=== PATIENT | female | born 1945 | race Caucasian/White ===

== ENCOUNTER → 2017-06-09 | Outpatient (CLI) | payer MEDICARE, MEDICAID | END | disposition home or self-care (01) | LOC: ECHO 09:01 | DX: Z01.810 Encounter for preprocedural cardiovascular examination (principal); I35.1 Nonrheumatic aortic (valve) insufficiency | CPT/HCPCS: 93306 ==

== ENCOUNTER 2018-01-10 13:19 | Emergency (ER) | payer MEDICARE, MEDICAID ==
[~2018-01-10] VITALS: Ht 160 cm; Wt 83.0 kg
[~2018-01-10 13:19] MED LIST: ALBU2.5V14 NEB; AMLO5TAB7 PO; ASPI-482 PO; CHOL10003 PO; CLON1TAB23 PO; CLON2TAB9 PO; DULO30CA2 PO; DULO60CA6 PO; FERR325T14 PO; HYDR-971 PO; HYDR200T5 PO; IPRA4AER IH; LEVO25TA4 PO; MELO7.5T29 PO; METO-269 PO; MULT-658 PO; OMEG1CAP27 PO; PANT40TA5 PO; TRAZ-86 PO
[2018-01-10] MEDS ORDERED: IV NORMAL SALINE 1000ML BAG 1,000 ML IV ONE (14:00)
[2018-01-10] MEDS ORDERED: IOHEXOL 240 MG/ML 50ML VIAL. PO ONE (14:15)
[2018-01-10] MEDS ORDERED: CONTRAST GIVEN. MC PRN (14:15)
[2018-01-10] MEDS ORDERED: IOHEXOL 300 MG/ML 100ML VIAL. IV ONE (14:15)
[2018-01-10 14:54] LABS: BASO # 0.1 x10^3/uL (0.0-0.2); BASO % 1 % (0-3); EOS # 0.1 x10^3/uL (0.0-0.7); EOS % 2 % (0-3); HEMATOCRIT 43.1 % (36.0-47.0); HEMOGLOBIN 14.6 g/dL (12.0-15.5); LYMPH # 2.3 x10^3/uL (1.0-4.8); LYMPH % 26 % (24-48); MEAN CORPUSCULAR HEMOGLOBIN 29 pg (25-35); MEAN CORPUSCULAR HGB CONC 34 g/dL (31-37); MEAN CORPUSCULAR VOLUME 86 fL (79-100); MONO % 11 % (0-9); NEUT # 5.4 x10^3uL (1.8-7.7); NEUT % 60 % (31-73); PLATELET COUNT 228 x10^3/uL (140-400); RED BLOOD COUNT 5.02 x10^6/uL (3.50-5.40); RED CELL DISTRIBUTION WIDTH 14.4 % (11.5-14.5)
[2018-01-10 14:59] LABS: CALCIUM 9.4 mg/dL (8.5-10.1); CREATININE 0.6 mg/dL (0.6-1.0); GFR 98.3; POTASSIUM 3.8 mmol/L (3.5-5.1)
[2018-01-10 15:05] LABS: ALBUMIN 3.5 g/dL (3.4-5.0); TOTAL BILIRUBIN 0.3 mg/dL (0.2-1.0); TOTAL PROTEIN 6.9 g/dL (6.4-8.2)
[2018-01-10 15:21] LABS: BILIRUBIN,URINE NEGATIVE (NEG); CLARITY,URINE CLEAR; COLOR,URINE YELLOW; NITRITE,URINE NEGATIVE (NEG); PROTEIN,URINE NEGATIVE (NEG-TRACE); UROBILINOGEN,URINE 0.2 mg/dL (0.2 mg/dL)
[2018-01-10 15:31] LABS: BACTERIA,URINE MODERATE /HPF (0-FEW); RBC,URINE RARE /HPF (0-2); SQUAMOUS EPITHELIAL CELL,UR FEW /LPF
--- NOTE | 2018-01-10 15:39 | RAD ---
Examination: CT of the abdomen pelvis with IV and oral contrast HISTORY: History of left lower quadrant abdominal pain, diarrhea COMPARISON: 02/07/2014 TECHNIQUE: Axial CT images of the abdomen pelvis were performed with oral and IV contrast. Coronal and sagittal reformats are performed Exposure: One or more of the following individualized dose reduction techniques were utilized for this examination: 1. Automated exposure control 2. Adjustment of the mA and/or kV according to patient size 3. Use of iterative reconstruction technique FINDINGS: The visualized bibasilar lungs are clear. No evidence of free air identified in the abdomen. The visualized liver grossly appears unremarkable. Prominent appearing intrahepatic bile ducts identified. The common bile duct measures 2.9 cm in diameter is similar to prior exam probably postcholecystectomy changes with the distention. The visualized pancreas grossly appears unremarkable. The visualized spleen, adrenals grossly appears unremarkable. The stomach is mildly distended. Small hiatal hernia is identified. The small bowel is nondilated. Feces and gas noted in the colon. Multiple sigmoid colon diverticulosis identified. Mild thickening of the distal descending colon and sigmoid colon wall. Urinary bladder is minimally distended. The bilateral kidneys enhance symmetrically. Small cystic structure identified in the right kidney measuring 7 mm. Moderate degenerative changes lumbar spine. IMPRESSION: 1. There is mild thickening of the wall of the distal descending colon and sigmoid colon likely mild colitis. Sigmoid colon diverticulosis. 2. Prominent appearing common bile duct and intrahepatic bile duct with the common bile duct measuring 2.9 cm grossly similar to prior exam probably postcholecystectomy changes or distal common bile duct obstruction is not completely excluded. Correlate with liver function tests. 3. Tiny 7 mm cystic structure identified in the right kidney is difficult to characterize. Electronically signed by: Talon Bear MD (01/10/2018 3:35 PM) [id number]
[2018-01-10] MEDS ORDERED: CIPR500T94 PO (15:47)
[2018-01-10] MEDS ORDERED: METR500T PO (15:47)
--- NOTE | 2018-01-10 15:49 | PHYS DOC ---
Past Medical History Past Medical History: Anxiety, COPD, Hypertension, Other Additional Past Medical Histor: thyroid issue, SLEEP APNEA Past Surgical History: Appendectomy, Cholecystectomy, Knee Replacement Additional Past Surgical Histo: left rotator cuff,hernia,OVARIAN CYSTS REMOVED Alcohol Use: Occasionally Drug Use: None Adult General Chief Complaint Chief Complaint: DIARRHEA HPI HPI Patient is a 72 year old female who presents with diarrhea x 4 days. The patient states that she was evaluated at [facility] 2 days ago and discharged home with no medications. They stated that she did have a UTI but they did not medicate her. The patient does have a history of diverticulosis. She has been having some lower quadrant pain. She denies nausea or vomiting. Review of Systems Review of Systems Constitutional: Denies fever or chills [] Respiratory: Denies cough or shortness of breath [] Cardiovascular: No additional information not addressed in HPI [] GI: See history of present illness : Denies dysuria or hematuria [] Musculoskeletal: Denies back pain or joint pain [] Integument: Denies rash or skin lesions [] Neurologic: Denies headache, focal weakness or sensory changes [] Endocrine: Denies polyuria or polydipsia [] All other systems were reviewed and found to be within normal limits, except as documented in this note. Current Medications Current Medications Current Medications Medications (Trade) Dose Ordered Sig/James Start Time Stop Time Status Last Admin Dose Admin Info (CONTRAST GIVEN -- Rx MONITORING) 1 each PRN DAILY PRN 01/10/18 14:15 01/10/18 16:38 DC Iohexol (Omnipaque 240 Mg/ml) 30 ml 1X ONCE 01/10/18 14:15 01/10/18 14:16 DC 01/10/18 14:15 30 ML Iohexol (Omnipaque 300 Mg/ml) 75 ml 1X ONCE 01/10/18 14:15 01/10/18 14:16 DC 01/10/18 14:15 75 ML Sodium Chloride 1,000 ml @ 1,000 mls/hr 1X ONCE 01/10/18 14:00 01/10/18 14:59 DC 01/10/18 15:05 1,000 MLS/HR Allergies Allergies Allergies Coded Allergies Type Severity Reaction Last Updated Verified Sulfa (Sulfonamide Antibiotics) Allergy Intermediate 03/10/15 Yes hydrochlorothiazide Allergy Intermediate 09/08/17 Yes Physical Exam Physical Exam Constitutional: Well developed, well nourished, no acute distress, non-toxic appearance. [] Cardiovascular:Heart rate regular rhythm, no murmur [] Lungs & Thorax: Bilateral breath sounds clear to auscultation [] Abdomen: Bowel sounds normal, soft, mild left lower quadrant tenderness, no masses, no pulsatile masses. [] Skin: Warm, dry, no erythema, no rash. [] Back: No tenderness, no CVA tenderness. [] Extremities: No tenderness, no cyanosis, no clubbing, ROM intact, no edema. [] Neurologic: Alert and oriented X 3, normal motor function, normal sensory function, no focal deficits noted. [] Psychologic: Affect normal, judgement normal, mood normal. [] Current Patient Data Vital Signs Vital Signs Date Time Temp Pulse Resp B/P (MAP) Pulse Ox O2 Delivery O2 Flow Rate FiO2 01/10/18 16:08 76 20 158/81 (106) 95 Room Air 01/10/18 13:19 98.6 98.6 Lab Values Laboratory Tests Test 01/10/18 14:30 01/10/18 15:13 White Blood Count 9.0 x10^3/uL (4.0-11.0) Red Blood Count 5.02 x10^6/uL (3.50-5.40) Hemoglobin 14.6 g/dL (12.0-15.5) Hematocrit 43.1 % (36.0-47.0) Mean Corpuscular Volume 86 fL (79-100) Mean Corpuscular Hemoglobin 29 pg (25-35) Mean Corpuscular Hemoglobin Concent 34 g/dL (31-37) Red Cell Distribution Width 14.4 % (11.5-14.5) Platelet Count 228 x10^3/uL (140-400) Neutrophils (%) (Auto) 60 % (31-73) Lymphocytes (%) (Auto) 26 % (24-48) Monocytes (%) (Auto) 11 % (0-9) H Eosinophils (%) (Auto) 2 % (0-3) Basophils (%) (Auto) 1 % (0-3) Neutrophils # (Auto) 5.4 x10^3uL (1.8-7.7) Lymphocytes # (Auto) 2.3 x10^3/uL (1.0-4.8) Monocytes # (Auto) 1.0 x10^3/uL (0.0-1.1) Eosinophils # (Auto) 0.1 x10^3/uL (0.0-0.7) Basophils # (Auto) 0.1 x10^3/uL (0.0-0.2) Sodium Level 140 mmol/L (136-145) Potassium Level 3.8 mmol/L (3.5-5.1) Chloride Level 103 mmol/L (98-107) Carbon Dioxide Level 28 mmol/L (21-32) Anion Gap 9 (6-14) Blood Urea Nitrogen 9 mg/dL (7-20) Creatinine 0.6 mg/dL (0.6-1.0) Estimated GFR (Cockcroft-Gault) 98.3 BUN/Creatinine Ratio 15 (6-20) Glucose Level 82 mg/dL (70-99) Calcium Level 9.4 mg/dL (8.5-10.1) Total Bilirubin 0.3 mg/dL (0.2-1.0) Aspartate Amino Transferase (AST) 15 U/L (15-37) Alanine Aminotransferase (ALT) 15 U/L (14-59) Alkaline Phosphatase 110 U/L (46-116) Total Protein 6.9 g/dL (6.4-8.2) Albumin 3.5 g/dL (3.4-5.0) Albumin/Globulin Ratio 1.0 (1.0-1.7) Urine Collection Type Void Urine Color Yellow Urine Clarity Clear Urine pH 6.0 Urine Specific [place] 1.010 Urine Protein Negative mg/dL (NEG-TRACE) Urine Glucose (UA) Negative mg/dL (NEG) Urine Ketones (Stick) Negative mg/dL (NEG) Urine Blood Small (NEG) Urine Nitrite Negative (NEG) Urine Bilirubin Negative (NEG) Urine Urobilinogen Dipstick 0.2 mg/dL (0.2 mg/dL) Urine Leukocyte Esterase Moderate (NEG) Urine RBC Rare /HPF (0-2) Urine WBC 5-10 /HPF (0-4) Urine Squamous Epithelial Cells Few /LPF Urine Bacteria Moderate /HPF (0-FEW) Laboratory Tests 01/10/18 14:30 Laboratory Tests 01/10/18 14:30 EKG EKG [] Radiology/Procedures Radiology/Procedures [] PATIENT: SHYANNE RODARTE ACCOUNT: [id number] : 1945 LOCATION: ER AGE: 72 SEX: F EXAM STATUS: REG ER ORD. PHYSICIAN: ALIZA CARDENAS APRN REASON: LLQ pain, diarrhea x 5 days PROCEDURE: CT ABD PELV W/ORAL&IV CONTRAST Examination: CT of the abdomen pelvis with IV and oral contrast HISTORY: History of left lower quadrant abdominal pain, diarrhea COMPARISON: 02/07/2014 TECHNIQUE: Axial CT images of the abdomen pelvis were performed with oral and IV contrast. Coronal and sagittal reformats are performed Exposure: One or more of the following individualized dose reduction techniques were utilized for this examination: 1. Automated exposure control 2. Adjustment of the mA and/or kV according to patient size 3. Use of iterative reconstruction technique FINDINGS: The visualized bibasilar lungs are clear. No evidence of free air identified in the abdomen. The visualized liver grossly appears unremarkable. Prominent appearing intrahepatic bile ducts identified. The common bile duct measures 2.9 cm in diameter is similar to prior exam probably postcholecystectomy changes with the distention. The visualized pancreas grossly appears unremarkable. The visualized spleen, adrenals grossly appears unremarkable. The stomach is mildly distended. Small hiatal hernia is identified. The small bowel is nondilated. Feces and gas noted in the colon. Multiple sigmoid colon diverticulosis identified. Mild thickening of the distal descending colon and sigmoid colon wall. Urinary bladder is minimally distended. The bilateral kidneys enhance symmetrically. Small cystic structure identified in the right kidney measuring 7 mm. Moderate degenerative changes lumbar spine. IMPRESSION: 1. There is mild thickening of the wall of the distal descending colon and sigmoid colon likely mild colitis. Sigmoid colon diverticulosis. 2. Prominent appearing common bile duct and intrahepatic bile duct with the common bile duct measuring 2.9 cm grossly similar to prior exam probably postcholecystectomy changes or distal common bile duct obstruction is not completely excluded. Correlate with liver function tests. 3. Tiny 7 mm cystic structure identified in the right kidney is difficult to characterize. Electronically signed by: Talon Bear MD (01/10/2018 3:35 PM) [id number] DICTATED and SIGNED BY: TALON BEAR MD DATE: 01/10/18 1526 Course & Med Decision Making Course & Med Decision Making Pertinent Labs and Imaging studies reviewed. (See chart for details) []The patient's imaging shows diverticulosis. She is still positive for UTI. The patient is being discharged home with Cipro and Flagyl. She is to return to the hospital immediately if she is worsening. She is in agreement with this plan. She has been instructed to follow-up with her primary care provider for a recheck and possible referral to gastroenterology. Dragon Disclaimer Dragon Disclaimer This electronic medical record was generated, in whole or in part, using a voice recognition dictation system. Departure Departure Impression: Primary Impression: Diverticulosis Additional Impressions: Diarrhea UTI (urinary tract infection) Disposition: HOME, SELF-CARE Condition: STABLE Referrals: Deirdre QUINTEROS MD (PCP) Patient Instructions: Diet for Diarrhea, Adult, Diverticulosis, Urinary Tract Infection Additional Instructions: Medication as prescribed. Follow a BRAT diet. Follow-up with your primary care provider for a urine recheck in one week and referral to a meat selector for further evaluation of your diverticulosis. If worsening return to the emergency department. Scripts Metronidazole (FLAGYL) 500 Mg Tablet 1 TAB PO BID, #14 TAB Prov: ALIZA CARDENAS APRN 01/10/18 Ciprofloxacin Hcl (CIPRO) 500 Mg Tablet 1 TAB PO BID, #20 TAB Prov: ALIZA CARDENAS APRN 01/10/18 Problem Qualifiers ALIZA CARDENAS APRN Jan 10, 2018 15:49
[2018-01-10 16:08] VITALS: BP 158/81
== END 2018-01-10 16:23 | disposition home or self-care (01) ==
LOC: ER 13:19
DX: R19.7 Diarrhea, unspecified (principal); N39.0 Urinary tract infection, site not specified; K57.90 Diverticulosis of intestine, part unspecified, without perforation or abscess without bleeding; I10 Essential (primary) hypertension; J44.9 Chronic obstructive pulmonary disease, unspecified; Z90.49 Acquired absence of other specified parts of digestive tract; Z90.89 Acquired absence of other organs; Z98.890 Other specified postprocedural states; Z88.2 Allergy status to sulfonamides; Z88.8 Allergy status to other drugs, medicaments and biological substances
CPT/HCPCS: 36415; 74177; 80053; 81001; 85025; 87086; 96360; 99285; J7030; Q9966; Q9967

== ENCOUNTER 2018-06-23 15:50 | Emergency (ER) | payer MEDICARE, MEDICAID ==
[~2018-06-23] VITALS: Ht 160 cm; Wt 83.0 kg
[~2018-06-23 15:50] MED LIST changes: +AMLO5TAB10 PO; -AMLO5TAB7 PO; +CIPR500T94 PO; +HYDR-3164 PO; -HYDR-971 PO; +METR500T PO
--- NOTE | 2018-06-23 16:33 | PHYS DOC ---
Past Medical History Past Medical History: Anxiety, Asthma, COPD, Depression, GERD, Hypertension, Other Additional Past Medical Histor: thyroid issue, SLEEP APNEA Past Surgical History: Appendectomy, Cholecystectomy, Knee Replacement Additional Past Surgical Histo: left rotator cuff X 3,hernia,OVARIAN CYSTS REMOVED, L ANKLE HARDWARE, CATAR Alcohol Use: Sober Drug Use: None Adult General Chief Complaint Chief Complaint: DEPRESSION HPI HPI Patient is a 72 year old female with history of hypertension, anxiety, depression, COPD, asthma, who presents to the ED today to be evaluated for depression and chronic bilateral hip pain. Patient states she has history of chronic depression, she is on several medications. She feels her PCP should be contacted and asked to come to the ED to see her and adjust the medications for depression. She is also complaining of chronic 10 out of 10 bilateral hip pain. She states pain on the hips is on laying certain sides and ambulation. She states she is supposed to see Dr. Lozano the orthopedic doctor but she cannot find a ride to take her to Dr. Lozano's office. She is also requesting the orthopedic doctor to be contacted to come and see her in the ED. She is also complaining of not taking her medications right. She states she is on several medications but she doesn't know if she is taking them the right way or not. Patient denies any suicidal or homicidal ideations. She states she has been referred to [facility] before but cannot be evaluated there because she lives in [facility] PCP Dr. Singh Review of Systems Review of Systems Constitutional: Denies fever or chills [] Eyes: Denies change in visual acuity, redness, or eye pain [] HENT: Denies nasal congestion or sore throat [] Respiratory: Denies cough or shortness of breath [] Cardiovascular: No additional information not addressed in HPI [] GI: Denies abdominal pain, nausea, vomiting, bloody stools or diarrhea [] : Denies dysuria or hematuria [] Musculoskeletal: Reports chronic hip pain Integument: Denies rash or skin lesions [] Neurologic: Denies headache, focal weakness or sensory changes [] Psych: Reports depression All other systems were reviewed and found to be within normal limits, except as documented in this note. Current Medications Current Medications Current Medications Medications (Trade) Dose Ordered Sig/James Start Time Stop Time Status Last Admin Dose Admin Alprazolam (Xanax) 0.5 mg 1X ONCE 06/23/18 16:45 06/23/18 16:46 DC 06/23/18 16:28 0.5 MG Clonidine HCl (Catapres) 0.1 mg 1X ONCE 06/23/18 16:45 06/23/18 16:46 DC 06/23/18 16:29 0.1 MG Morphine Sulfate (Morphine Sulfate) 1 mg 1X ONCE 06/23/18 16:45 06/23/18 16:46 DC Allergies Allergies Allergies Coded Allergies Type Severity Reaction Last Updated Verified Sulfa (Sulfonamide Antibiotics) Allergy Intermediate 03/10/15 Yes hydrochlorothiazide Allergy Intermediate 09/08/17 Yes Physical Exam Physical Exam Constitutional: Well developed, well nourished, no acute distress, non-toxic appearance. [] HENT: Normocephalic, atraumatic, bilateral external ears normal, oropharynx moist, no oral exudates, nose normal. [] Eyes: PERRLA, EOMI, conjunctiva normal, no discharge. [] Neck: Normal range of motion, no tenderness, supple, no stridor. [] Cardiovascular:Heart rate regular rhythm, no murmur [] Lungs & Thorax: Bilateral breath sounds clear to auscultation [] Abdomen: Bowel sounds normal, soft, no tenderness, no masses, no pulsatile masses. [] Skin: Warm, dry, no erythema, no rash. [] Back: No tenderness, no CVA tenderness. [] Extremities: Bilateral lower extremities with no obvious deformity, full range of motion to bilateral hips including flexion and extension and internal rotation and external rotation. +2 bilateral pedal pulses. Cap refill less than 2 seconds bilateral lower extremities. Neurologic: Alert and oriented X 3, normal motor function, normal sensory function, no focal deficits noted. Cranial nerves II through XII intact Psychologic: Depressed mood Current Patient Data Vital Signs Vital Signs Date Time Temp Pulse Resp B/P (MAP) Pulse Ox O2 Delivery O2 Flow Rate FiO2 06/23/18 16:29 72 183/89 06/23/18 15:56 98.2 18 97 Room Air 98.2 Lab Values Laboratory Tests Test 06/23/18 16:47 06/23/18 17:44 White Blood Count 7.8 x10^3/uL (4.0-11.0) Red Blood Count 4.99 x10^6/uL (3.50-5.40) Hemoglobin 13.7 g/dL (12.0-15.5) Hematocrit 42.4 % (36.0-47.0) Mean Corpuscular Volume 85 fL (79-100) Mean Corpuscular Hemoglobin 28 pg (25-35) Mean Corpuscular Hemoglobin Concent 32 g/dL (31-37) Red Cell Distribution Width 14.6 % (11.5-14.5) H Platelet Count 182 x10^3/uL (140-400) Neutrophils (%) (Auto) 59 % (31-73) Lymphocytes (%) (Auto) 28 % (24-48) Monocytes (%) (Auto) 9 % (0-9) Eosinophils (%) (Auto) 2 % (0-3) Basophils (%) (Auto) 1 % (0-3) Neutrophils # (Auto) 4.6 x10^3uL (1.8-7.7) Lymphocytes # (Auto) 2.2 x10^3/uL (1.0-4.8) Monocytes # (Auto) 0.7 x10^3/uL (0.0-1.1) Eosinophils # (Auto) 0.2 x10^3/uL (0.0-0.7) Basophils # (Auto) 0.1 x10^3/uL (0.0-0.2) Sodium Level 141 mmol/L (136-145) Potassium Level 4.6 mmol/L (3.5-5.1) Chloride Level 103 mmol/L (98-107) Carbon Dioxide Level 30 mmol/L (21-32) Anion Gap 8 (6-14) Blood Urea Nitrogen 12 mg/dL (7-20) Creatinine 0.7 mg/dL (0.6-1.0) Estimated GFR (Cockcroft-Gault) 82.3 BUN/Creatinine Ratio 17 (6-20) Glucose Level 87 mg/dL (70-99) Calcium Level 9.3 mg/dL (8.5-10.1) Total Bilirubin 0.4 mg/dL (0.2-1.0) Aspartate Amino Transferase (AST) 13 U/L (15-37) L Alanine Aminotransferase (ALT) 12 U/L (14-59) L Alkaline Phosphatase 108 U/L (46-116) Total Protein 6.6 g/dL (6.4-8.2) Albumin 3.3 g/dL (3.4-5.0) L Albumin/Globulin Ratio 1.0 (1.0-1.7) Lipase 62 U/L (73-393) L Salicylates Level < 2.8 mg/dL (2.8-20.0) L Salicylate Last Dose Date Unknown Salicylate Last Dose Time Unknown Acetaminophen Level < 2 mcg/ml (10-30) L Acetaminophen Last Dose Date Unknown Acetaminophen Last Dose Time Unknown Ethyl Alcohol Level < 10 mg/dL (0-10) Urine Collection Type Unknown Urine Color Yellow Urine Clarity Clear Urine pH 6.5 Urine Specific [place] <=1.005 Urine Protein Negative mg/dL (NEG-TRACE) Urine Glucose (UA) Negative mg/dL (NEG) Urine Ketones (Stick) Negative mg/dL (NEG) Urine Blood Negative (NEG) Urine Nitrite Negative (NEG) Urine Bilirubin Negative (NEG) Urine Urobilinogen Dipstick 0.2 mg/dL (0.2 mg/dL) Urine Leukocyte Esterase Moderate (NEG) Urine RBC Occ /HPF (0-2) Urine WBC 1-4 /HPF (0-4) Urine Squamous Epithelial Cells Few /LPF Urine Bacteria Few /HPF (0-FEW) Urine Opiates Screen Neg (NEG) Urine Methadone Screen Neg (NEG) Urine Barbiturates Neg (NEG) Urine Phencyclidine Screen Neg (NEG) Urine Amphetamine/Methamphetamine Neg (NEG) Urine Benzodiazepines Screen Neg (NEG) Urine Cocaine Screen Neg (NEG) Urine Cannabinoids Screen Neg (NEG) Urine Ethyl Alcohol Neg (NEG) Laboratory Tests 06/23/18 16:47 Laboratory Tests 06/23/18 16:47 EKG EKG [] Radiology/Procedures Radiology/Procedures []REASON: chronic pain PROCEDURE: HIP BILATERAL WITH PELVIS Indication: Chronic bilateral hip pain. TECHNIQUE: AP pelvis and multiple views of the bilateral hip joints COMPARISON: None FINDINGS: The bilateral hip symmetric with no significant hip joint space narrowing or reactive changes. SI joints are within normal limits. No acute fracture or dislocation. IMPRESSION: Mild bilateral hip joint osteoarthritis. Electronically signed by: Grabiel Bowman DO (06/23/2018 4:53 PM) [id number] DICTATED and SIGNED BY: GRABIEL BOWMAN DO DATE: 06/23/18 8064 Course & Med Decision Making Course & Med Decision Making Pertinent Labs and Imaging studies reviewed. (See chart for details) This is a 72-year-old female patient presenting to the ED today with multiple complaints including depression-chronic and on several medications for rate, chronic hip pain and concerned she may not be taking her medications the right. Patient is alert and oriented 3. She has been requesting a contact her PCP Dr. Singh and ask him to come to the ED to adjust her depression medications, she is also requesting a contact Dr. Lozano the orthopedic doctor, and see her in the ED. PAT team consulted. Bilateral hip x-rays are noted for osteoarthritis. CBC with a normal WBC, CMP with no acute findings. Urine analysis is noted for large amount of leukocytes. Patient to be discharged on MicroBid. Blood pressure was 196/89 on arrival to the ED. Patient was given clonidine. Blood pressure right now is in the 150s over 80s. Patient was also given Xanax and hydrocodone. PAT team came and talked to her and provided her resources for f/u. 18:20 went to reevaluate patient. She appears happy, very talkative. She states her pain is 0 and would like to go home. She states she has an appointment with Dr. Lozano on July 18, [address] Singh on July 21, 2018. Encouraged patient to follow-up. She was given resources own transportation. Discharged with 10 tablets of diclofenac. Patient was also ambulated to the bathroom with no difficulties. Dragon Disclaimer Dragon Disclaimer This electronic medical record was generated, in whole or in part, using a voice recognition dictation system. Departure Departure Impression: Primary Impression: UTI (urinary tract infection) Additional Impressions: Hypertension Depression Chronic hip pain Disposition: HOME, SELF-CARE Condition: STABLE Referrals: Deirdre SINGH MD (PCP) Follow-up as soon as possible ARUN LOZANO MD Follow-up as soon as possible Patient Instructions: Depression, Adult, Urinary Tract Infection Additional Instructions: You were evaluated in the emergency room for chronic right hip pain, depression and urinary tract infection. Take the prescribed medications as ordered. Follow- up with your primary care doctor as well as Dr. Lozano as scheduled. You can also call the offices on Tuesday and see if they can give you an earlier appointment. Scripts Diclofenac Sodium (DICLOFENAC SODIUM) 50 Mg Tablet.dr 1 TAB PO BID, #10 TAB 0 Refills Prov: CODY CORADO VARUN 06/23/18 Nitrofurantoin Monohyd/M-Cryst (MACROBID 100 MG CAPSULE) 100 Mg Capsule 1 CAP PO BID, #14 CAP Prov: CODY CORADO VARUN 06/23/18 Problem Qualifiers Primary Impression: UTI (urinary tract infection) Urinary tract infection type: site unspecified Hematuria presence: without hematuria Qualified Codes: N39.0 - Urinary tract infection, site not specified Additional Impressions: Hypertension Hypertension type: unspecified Qualified Codes: I10 - Essential (primary) hypertension Depression Depression Type: unspecified Qualified Codes: F32.9 - Major depressive disorder, single episode, unspecified Chronic hip pain Laterality: bilateral Qualified Codes: M25.551 - Pain in right hip; M25.552 - Pain in left hip; G89.29 - Other chronic pain CODY CORADO VARUN Jun 23, 2018 16:33
[2018-06-23] MEDS ORDERED: cloNIDine HCL 0.1 MG TABLET PO ONE (16:45)
[2018-06-23] MEDS ORDERED: MORPHINE SULFATE 4 MG/ML VIAL. IV ONE (16:45)
[2018-06-23] MEDS ORDERED: ALPRAZolam 0.5 MG TABLET PO ONE (16:45)
[2018-06-23 16:54] LABS: BASO # 0.1 x10^3/uL (0.0-0.2); BASO % 1 % (0-3); EOS # 0.2 x10^3/uL (0.0-0.7); EOS % 2 % (0-3); HEMATOCRIT 42.4 % (36.0-47.0); HEMOGLOBIN 13.7 g/dL (12.0-15.5); LYMPH # 2.2 x10^3/uL (1.0-4.8); LYMPH % 28 % (24-48); MEAN CORPUSCULAR HEMOGLOBIN 28 pg (25-35); MEAN CORPUSCULAR HGB CONC 32 g/dL (31-37); MEAN CORPUSCULAR VOLUME 85 fL (79-100); MONO # 0.7 x10^3/uL (0.0-1.1); MONO % 9 % (0-9); NEUT # 4.6 x10^3uL (1.8-7.7); NEUT % 59 % (31-73); PLATELET COUNT 182 x10^3/uL (140-400); RED BLOOD COUNT 4.99 x10^6/uL (3.50-5.40); RED CELL DISTRIBUTION WIDTH 14.6 % (11.5-14.5); WHITE BLOOD COUNT 7.8 x10^3/uL (4.0-11.0)
--- NOTE | 2018-06-23 16:55 | RAD ---
Indication: Chronic bilateral hip pain. TECHNIQUE: AP pelvis and multiple views of the bilateral hip joints COMPARISON: None FINDINGS: The bilateral hip symmetric with no significant hip joint space narrowing or reactive changes. SI joints are within normal limits. No acute fracture or dislocation. IMPRESSION: Mild bilateral hip joint osteoarthritis. Electronically signed by: Grabiel Bowman DO (06/23/2018 4:53 PM) [id number]
[2018-06-23 17:04] LABS: CALCIUM 9.3 mg/dL (8.5-10.1); CREATININE 0.7 mg/dL (0.6-1.0); GFR 82.3; POTASSIUM 4.6 mmol/L (3.5-5.1)
[2018-06-23 17:10] LABS: ALBUMIN 3.3 g/dL (3.4-5.0); TOTAL BILIRUBIN 0.4 mg/dL (0.2-1.0); TOTAL PROTEIN 6.6 g/dL (6.4-8.2)
[2018-06-23 17:13] LABS: ACETAMIN < 2 mcg/ml (10-30); ETHANOL < 10 mg/dL (0-10); SALIC < 2.8 mg/dL (2.8-20.0)
[2018-06-23 17:59] LABS: BILIRUBIN,URINE NEGATIVE (NEG); CLARITY,URINE CLEAR; COLOR,URINE YELLOW; NITRITE,URINE NEGATIVE (NEG); PH,URINE 6.5; PROTEIN,URINE NEGATIVE (NEG-TRACE); UROBILINOGEN,URINE 0.2 mg/dL (0.2 mg/dL)
[2018-06-23 18:00] VITALS: BP 159/85
[2018-06-23 18:04] LABS: AMPHETAMINE/METHAMPHETAMINE NEG (NEG); BARBITURATES NEG (NEG); BENZODIAZEPINES NEG (NEG); CANNABINOIDS NEG (NEG); COCAINE NEG (NEG); METHADONE NEG (NEG); OPIATES NEG (NEG); PHENCYCLIDINE NEG (NEG)
[2018-06-23 18:06] LABS: BACTERIA,URINE FEW /HPF (0-FEW); RBC,URINE OCC /HPF (0-2); SQUAMOUS EPITHELIAL CELL,UR FEW /LPF
[2018-06-23] MEDS ORDERED: NITR100C62 PO (18:33)
[2018-06-23] MEDS ORDERED: DICL50TA4 PO (18:33)
== END 2018-06-23 18:40 | disposition home or self-care (01) ==
LOC: ER 15:50
DX: F32.9 Major depressive disorder, single episode, unspecified (principal); N39.0 Urinary tract infection, site not specified; I10 Essential (primary) hypertension; G89.29 Other chronic pain; M25.552 Pain in left hip; M25.551 Pain in right hip; J44.9 Chronic obstructive pulmonary disease, unspecified; K21.9 Gastro-esophageal reflux disease without esophagitis; Z90.49 Acquired absence of other specified parts of digestive tract; Z90.89 Acquired absence of other organs; Z88.2 Allergy status to sulfonamides; Z88.5 Allergy status to narcotic agent
CPT/HCPCS: 36415; 73521; 80053; 80307; 80329; 81001; 83690; 85025; 87086; 99284; G0480; G6039

== ENCOUNTER 2018-07-30 11:00 | Inpatient (IN) | payer MEDICARE, MEDICAID ==
[~2018-07-30] VITALS: Ht 170.2 cm; Wt 83.0 kg
[~2018-07-30 11:00] MED LIST changes: +DICL50TA4 PO; +NITR100C62 PO
[2018-07-30] MEDS ORDERED: IV NORMAL SALINE 1000ML BAG 1,000 ML IV SCH (11:22)
[2018-07-30 11:39] LABS: BASO # 0.1 x10^3/uL (0.0-0.2); BASO % 1 % (0-3); EOS # 0.1 x10^3/uL (0.0-0.7); EOS % 2 % (0-3); HEMATOCRIT 43.5 % (36.0-47.0); HEMOGLOBIN 14.2 g/dL (12.0-15.5); LYMPH # 1.3 x10^3/uL (1.0-4.8); LYMPH % 21 % (24-48); MEAN CORPUSCULAR HEMOGLOBIN 28 pg (25-35); MEAN CORPUSCULAR HGB CONC 33 g/dL (31-37); MEAN CORPUSCULAR VOLUME 84 fL (79-100); MONO # 0.5 x10^3/uL (0.0-1.1); MONO % 8 % (0-9); NEUT # 4.1 x10^3uL (1.8-7.7); NEUT % 68 % (31-73); PLATELET COUNT 199 x10^3/uL (140-400); RED BLOOD COUNT 5.16 x10^6/uL (3.50-5.40); RED CELL DISTRIBUTION WIDTH 14.1 % (11.5-14.5)
--- NOTE | 2018-07-30 11:40 | PHYS DOC ---
Past Medical History Past Medical History: Anxiety, Asthma, COPD, Depression, Fibromyalgia, GERD, Hypertension, Other Additional Past Medical Histor: thyroid issue, SLEEP APNEA Past Surgical History: Appendectomy, Cholecystectomy, Knee Replacement Additional Past Surgical Histo: left rotator cuff X 3,hernia,OVARIAN CYSTS REMOVED, L ANKLE HARDWARE, CATAR Alcohol Use: Sober Drug Use: None Adult General Chief Complaint Chief Complaint: DIZZY/LIGHT HEADED HPI HPI Patient is a 73-year-old female who presents to the emergency department via EMS. She states for the past few weeks she has felt generally weak and dizzy, and generally fatigued and just not felt well. She saw her PCP on the of this month, and was told that her thyroid was "out of whack.". She states that her thyroid medication was increased, she denies any focal pain. She has not had any headache, neck pain or back pain, abdominal pain, chest pain, palpitations, shortness of breath, numbness or focal weakness. 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 She was seen at [facility], and according to her discharge papers had CTs of her head, face, and cervical spine, the patient's reports they were all negative. There are no alleviating or exacerbating factors to the patient's symptoms. Review of Systems Review of Systems Constitutional: Denies fever or chills [] Eyes: Denies change in visual acuity, redness, or eye pain [] HENT: Denies nasal congestion or sore throat [] Respiratory: Denies cough or shortness of breath [] Cardiovascular: The patient denies any shortness of breath, chest pain, palpitations, or orthopnea [] GI: Denies abdominal pain, nausea, vomiting, bloody stools or diarrhea [] : Denies dysuria or hematuria [] Musculoskeletal: Denies back pain or joint pain [] Integument: Denies rash or skin lesions [] Neurologic: Denies headache, focal weakness or sensory changes . Reports dizziness and generalized weakness.[] Endocrine: Denies polyuria or polydipsia [] All other systems were reviewed and found to be within normal limits, except as documented in this note. Current Medications Current Medications Current Medications Medications (Trade) Dose Ordered Sig/James Start Time Stop Time Status Last Admin Dose Admin Info (CONTRAST GIVEN -- Rx MONITORING) 1 each PRN DAILY PRN 07/30/18 13:00 08/01/18 12:59 Iohexol (Omnipaque 300 Mg/ml) 75 ml 1X ONCE 07/30/18 13:00 07/30/18 13:01 DC 07/30/18 12:58 75 ML Sodium Chloride 1,000 ml @ 1,000 mls/hr Q1H 07/30/18 11:22 07/30/18 12:21 DC 07/30/18 11:55 1,000 MLS/HR Allergies Allergies Allergies Coded Allergies Type Severity Reaction Last Updated Verified Sulfa (Sulfonamide Antibiotics) Allergy Intermediate 03/10/15 Yes hydrochlorothiazide Allergy Intermediate 09/08/17 Yes Physical Exam Physical Exam PHYSICAL EXAM: CONSTITUTIONAL: Well developed, well nourished HEAD: normocephalic, atraumatic EENT: PERRL, EOMI. Conjunctivae normal color, sclerae non-icteric; moist mucous membranes. There is bruising noted in the right cheek and infraorbital area without any focal bony tenderness to palpation. NECK: Supple, non-tender; no meningismus. LUNGS: Lungs CTA, breathing even and unlabored. Normal air movement. HEART: Regular rate and rhythm, no murmur CHEST: No deformity; non-tender ABDOMEN: The abdomen is soft, there is mild diffuse tenderness to palpation to the upper abdomen, the remainder of the abdomen is soft and non-tender, no masses or bruits. EXTREM: Normal ROM; no deformity, no calf tenderness. Normal pulses palpable in all extremities. There is no pedal edema. SKIN: No rash; no diaphoresis NEURO: Alert; normal speech and cognition; CN's grossly intact; strength grossly intact without focal deficit. BACK: No CVA TTP. Current Patient Data Vital Signs Vital Signs Date Time Temp Pulse Resp B/P (MAP) Pulse Ox O2 Delivery O2 Flow Rate FiO2 07/30/18 11:12 98.3 65 18 173/76 (108) 95 Room Air 98.3 Lab Values Laboratory Tests Test 07/30/18 11:16 07/30/18 11:55 White Blood Count 6.0 x10^3/uL (4.0-11.0) Red Blood Count 5.16 x10^6/uL (3.50-5.40) Hemoglobin 14.2 g/dL (12.0-15.5) Hematocrit 43.5 % (36.0-47.0) Mean Corpuscular Volume 84 fL (79-100) Mean Corpuscular Hemoglobin 28 pg (25-35) Mean Corpuscular Hemoglobin Concent 33 g/dL (31-37) Red Cell Distribution Width 14.1 % (11.5-14.5) Platelet Count 199 x10^3/uL (140-400) Neutrophils (%) (Auto) 68 % (31-73) Lymphocytes (%) (Auto) 21 % (24-48) L Monocytes (%) (Auto) 8 % (0-9) Eosinophils (%) (Auto) 2 % (0-3) Basophils (%) (Auto) 1 % (0-3) Neutrophils # (Auto) 4.1 x10^3uL (1.8-7.7) Lymphocytes # (Auto) 1.3 x10^3/uL (1.0-4.8) Monocytes # (Auto) 0.5 x10^3/uL (0.0-1.1) Eosinophils # (Auto) 0.1 x10^3/uL (0.0-0.7) Basophils # (Auto) 0.1 x10^3/uL (0.0-0.2) Sodium Level 143 mmol/L (136-145) Potassium Level 3.8 mmol/L (3.5-5.1) Chloride Level 103 mmol/L (98-107) Carbon Dioxide Level 30 mmol/L (21-32) Anion Gap 10 (6-14) Blood Urea Nitrogen 5 mg/dL (7-20) L Creatinine 0.7 mg/dL (0.6-1.0) Estimated GFR (Cockcroft-Gault) 82.3 BUN/Creatinine Ratio 7 (6-20) Glucose Level 119 mg/dL (70-99) H Calcium Level 9.0 mg/dL (8.5-10.1) Total Bilirubin 0.9 mg/dL (0.2-1.0) Aspartate Amino Transferase (AST) 141 U/L (15-37) H Alanine Aminotransferase (ALT) 97 U/L (14-59) H Alkaline Phosphatase 459 U/L (46-116) H Troponin I Quantitative < 0.017 ng/mL (0.000-0.055) KO-[id number]-Type Natriuretic Peptide 211 pg/mL (0-124) H Total Protein 6.8 g/dL (6.4-8.2) Albumin 3.2 g/dL (3.4-5.0) L Albumin/Globulin Ratio 0.9 (1.0-1.7) L Thyroid Stimulating Hormone (TSH) 2.434 uIU/mL (0.358-3.74) Free Thyroxine 1.31 ng/dL (0.76-1.46) Urine Collection Type Unknown Urine Color [place] Urine Clarity Clear Urine pH 5.5 Urine Specific [place] 1.015 Urine Protein Negative mg/dL (NEG-TRACE) Urine Glucose (UA) Negative mg/dL (NEG) Urine Ketones (Stick) Negative mg/dL (NEG) Urine Blood Small (NEG) Urine Nitrite Negative (NEG) Urine Bilirubin Small (NEG) Urine Urobilinogen Dipstick 1.0 mg/dL (0.2 mg/dL) Urine Leukocyte Esterase Small (NEG) Urine RBC 3-5 /HPF (0-2) Urine WBC 1-4 /HPF (0-4) Urine Squamous Epithelial Cells Mod /LPF Urine Transitional Epithelial Cells Occ /LPF Urine Renal Epithelial Cells Occ /LPF Urine Bacteria Few /HPF (0-FEW) Urine Hyaline Casts Moderate /HPF Urine Mucus Mod /LPF Laboratory Tests 07/30/18 11:16 Laboratory Tests 07/30/18 11:16 EKG EKG [Normal sinus rhythm at a rate of 50 beats for minute, left axis deviation, normal intervals. There are no acute ischemic ST/T changes.] Radiology/Procedures Radiology/Procedures [PROCEDURE: CT ABD PELV W/ IV CONTRST ONLY CT abdomen and pelvis with contrast: Reason for examination: Elevated liver function tests and weakness. Comparison is made to previous study dated 01/10/2018. Helical images were obtained through the abdomen and pelvis with intravenous administration of 75 cc Omnipaque 300. Reconstruction was performed in sagittal and coronal planes. Exposure: One or more of the following individualized dose reduction techniques were utilized for this examination: 1. Automated exposure control 2. Adjustment of the mA and/or kV according to patient size 3. Use of iterative reconstruction technique. There is some minimal atelectasis or infiltrate posterior medially at the left lung base. There is also some minimal focal parenchymal density abutting the pleural for surface in the lateral right lung base. The heart size is normal with no pericardial effusion. There continues to be a small hiatal hernia. The liver again shows a dilated common bile duct and there is intrahepatic biliary dilatation. The common bile duct measures at least 3.7 cm in greatest dimension and extends into the pancreatic head and there is intrahepatic dilatation measuring up to 2.1 cm diameter. This has progressed since previous examination. The gallbladder is surgically absent. No focal abnormality seen at the pancreas. The kidneys show small hypodense lesions consistent with cysts at the upper and lower pole of the right kidney measuring up to 9 mm in size. These are unchanged. No renal calculi, hydronephrosis or obstructive uropathy is seen. There is some diverticulosis in the sigmoid colon without evidence of diverticulitis. The small intestinal tract is not abnormally dilated or thickened. The stomach is not abnormally distended. No abnormality seen at the bladder. The uterus shows a small calcification consistent with a degenerated fibroadenoma. No abnormalities are seen at the ovaries. No free fluid or free air is seen in the abdomen or pelvis. There are degenerative changes in the spine but no acute bony abnormalities are seen. IMPRESSION: Progressive dilatation of the common bile duct and intrahepatic biliary tree down to the pancreatic head. No focal abnormality seen at the pancreas. Small hiatal hernia. Mild infiltrate or atelectasis posterior medially at the left lung base. Small focus of infiltrate or atelectasis laterally at the right lung base. Diverticulosis in the sigmoid colon without diverticulitis. 2 small hypodense lesions probably representing cysts in the right kidney measuring up to 9 mm in size.] PROCEDURE: CHEST AP ONLY CHEST AP ONLY Clinical Indication: SOA, DIZZINESS Comparison: 09/08/2013 portable chest x-ray exam. Findings: Right shoulder joint prosthesis is present. The cardiomediastinal silhouette is normal. Lungs are clear. There is no pneumothorax. No pleural effusion is appreciated. No acute bone abnormality. Dextroconvexity of the thoracic spine noted. Right upper quadrant surgical clips are present. Osteopenia noted. IMPRESSION: No acute cardiopulmonary process. Course & Med Decision Making Course & Med Decision Making Pertinent Labs and Imaging studies reviewed. (See chart for details) []1:40 PM: The patient's condition remained stable, her LFT elevation is new compared to her prior values from one month ago. I discussed the case with Dr. Hinds, production support developer for the patient's PCP, the patient be admitted for further evaluation and treatment. Dragon Disclaimer Dragon Disclaimer This electronic medical record was generated, in whole or in part, using a voice recognition dictation system. Departure Departure Impression: Primary Impression: Dizziness Additional Impression: Elevated liver function tests Disposition: ADMITTED INPATIENT Admitting Physician: Luis Hinds Condition: STABLE Referrals: Deirdre QUINTEROS MD (PCP) Problem Qualifiers ZE BRADY MD Jul 30, 2018 11:39
[2018-07-30 11:43] LABS: CREATININE 0.7 mg/dL (0.6-1.0); GFR 82.3; POTASSIUM 3.8 mmol/L (3.5-5.1)
--- NOTE | 2018-07-30 11:51 | EKG ---
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
[2018-07-30 11:58] LABS: ALBUMIN 3.2 g/dL (3.4-5.0); ALBUMIN/GLOBULIN RATIO 0.9 (1.0-1.7); TOTAL BILIRUBIN 0.9 mg/dL (0.2-1.0); TOTAL PROTEIN 6.8 g/dL (6.4-8.2)
[2018-07-30 11:59] LABS: FREE T4 1.31 ng/dL (0.76-1.46); THYROID STIM HORMONE (TSH) 2.434 uIU/mL (0.358-3.74)
[2018-07-30 12:07] LABS: BILIRUBIN,URINE SMALL (NEG); CLARITY,URINE CLEAR; COLOR,URINE AMBER; NITRITE,URINE NEGATIVE (NEG); PH,URINE 5.5; PROTEIN,URINE NEGATIVE (NEG-TRACE)
[2018-07-30 12:22] LABS: HYALINE CASTS, URINE MODERATE /HPF; SQUAMOUS EPITHELIAL CELL,UR MOD /LPF
[2018-07-30 12:23] LABS: BACTERIA,URINE FEW /HPF (0-FEW)
[2018-07-30] MEDS ORDERED: IOHEXOL 300 MG/ML 100ML VIAL. IV ONE (13:00)
[2018-07-30] MEDS ORDERED: CONTRAST GIVEN. MC PRN (13:00)
--- NOTE | 2018-07-30 13:10 | RAD ---
CHEST AP ONLY Clinical Indication: SOA, DIZZINESS Comparison: 09/08/2013 portable chest x-ray exam. Findings: Right shoulder joint prosthesis is present. The cardiomediastinal silhouette is normal. Lungs are clear. There is no pneumothorax. No pleural effusion is appreciated. No acute bone abnormality. Dextroconvexity of the thoracic spine noted. Right upper quadrant surgical clips are present. Osteopenia noted. IMPRESSION: No acute cardiopulmonary process. Electronically signed by: Madi Erazo MD (07/30/2018 1:07 PM) [facility]
--- NOTE | 2018-07-30 13:29 | RAD ---
CT abdomen and pelvis with contrast: Reason for examination: Elevated liver function tests and weakness. Comparison is made to previous study dated 01/10/2018. Helical images were obtained through the abdomen and pelvis with intravenous administration of 75 cc Omnipaque 300. Reconstruction was performed in sagittal and coronal planes. Exposure: One or more of the following individualized dose reduction techniques were utilized for this examination: 1. Automated exposure control 2. Adjustment of the mA and/or kV according to patient size 3. Use of iterative reconstruction technique. There is some minimal atelectasis or infiltrate posterior medially at the left lung base. There is also some minimal focal parenchymal density abutting the pleural for surface in the lateral right lung base. The heart size is normal with no pericardial effusion. There continues to be a small hiatal hernia. The liver again shows a dilated common bile duct and there is intrahepatic biliary dilatation. The common bile duct measures at least 3.7 cm in greatest dimension and extends into the pancreatic head and there is intrahepatic dilatation measuring up to 2.1 cm diameter. This has progressed since previous examination. The gallbladder is surgically absent. No focal abnormality seen at the pancreas. The kidneys show small hypodense lesions consistent with cysts at the upper and lower pole of the right kidney measuring up to 9 mm in size. These are unchanged. No renal calculi, hydronephrosis or obstructive uropathy is seen. There is some diverticulosis in the sigmoid colon without evidence of diverticulitis. The small intestinal tract is not abnormally dilated or thickened. The stomach is not abnormally distended. No abnormality seen at the bladder. The uterus shows a small calcification consistent with a degenerated fibroadenoma. No abnormalities are seen at the ovaries. No free fluid or free air is seen in the abdomen or pelvis. There are degenerative changes in the spine but no acute bony abnormalities are seen. IMPRESSION: Progressive dilatation of the common bile duct and intrahepatic biliary tree down to the pancreatic head. No focal abnormality seen at the pancreas. Small hiatal hernia. Mild infiltrate or atelectasis posterior medially at the left lung base. Small focus of infiltrate or atelectasis laterally at the right lung base. Diverticulosis in the sigmoid colon without diverticulitis. 2 small hypodense lesions probably representing cysts in the right kidney measuring up to 9 mm in size. Electronically signed by: Brittni Matthew MD (07/30/2018 1:26 PM) [place] [id number]
[2018-07-30 15:35] VITALS: BP 163/72
[2018-07-30] MEDS ORDERED: DICLOFENAC SODIUM 25 MG TABLET.DR PO PRN (16:30)
[2018-07-30] MEDS ORDERED: ALBUTEROL SULFATE 2.5 MG/3 ML NEBU. NEB PRN (16:30)
--- NOTE | 2018-07-30 16:36 | PDOC1 ---
History and Physical Date of Admission Date of Admission 07/30/18 Identification/Chief Complaint Chief Complaint Weakness, lightheadedness Source Source: Patient History of Present Illness History of Present Illness Pt states that she has been having weakness, lightheaded and dizzyness over this past week. Seemed to worsen this morning so decided to come to the ER. Pt was recently seen at [facility] last Tuesday for lower abdominal pain. She had a CT of her abdomen that was normal and was diagnosed with a UTI. On Tuesday pt went to sit up from her recliner and ended up falling (she does not know how) and landed flat on her face (has bruising on right side of her face). Pt was brought back to [facility]. She had a CT of her head that was normal and was told to continue the antibiotics for her UTI. She says that she went to get up to use the restroom and was so lightheaded she had to lay back down. Occurred again when she got up to make coffee. Pt had not had a bowel movement for 3 days so took 2 dulcolax on Tuesday. Ended up having diarrhea. Abdominal pain has improved since then. Pt admits that she has not been eating well. Will sometimes eat sweets for breakfast. Often does not eat lunch and then will eat a potpie or TV dinner for dinner. Past Medical History Cardiovascular: HTN Pulmonary: COPD GI: GERD Heme/Onc: No pertinent hx Hepatobiliary: No pertinent hx Psych: Anxiety, Depression Rheumatologic: Fibromyalgia, Rheumatoid arthritis Infectious disease: No pertinent hx ENT: No pertinent hx Renal/: No pertinent hx Endocrine: Hypothyroidism Dermatology: No pertinent hx Past Surgical History Past Surgical History: Appendectomy, Cholecystectomy, Total knee replacement, Other (Carpal tunnel surgery, rotator cuff repair, ovarian cyst removal, uterine cyst removal) Family History Family History: Cancer Social History Smoke: No ALCOHOL: none Drugs: None Current Problem List Problem List Problems Medical Problems: (1) Dizziness Status: Acute (2) Elevated liver function tests Status: Acute Current Medications Current Medications Current Medications Medications (Trade) Dose Ordered Sig/James Start Time Stop Time Status Last Admin Dose Admin Info (CONTRAST GIVEN -- Rx MONITORING) 1 each PRN DAILY PRN 07/30/18 13:00 08/01/18 12:59 Iohexol (Omnipaque 300 Mg/ml) 75 ml 1X ONCE 07/30/18 13:00 07/30/18 13:01 DC 07/30/18 12:58 75 ML Sodium Chloride 1,000 ml @ 1,000 mls/hr Q1H 07/30/18 11:22 07/30/18 12:21 DC 07/30/18 11:55 1,000 MLS/HR Allergies Allergies Allergies Coded Allergies Type Severity Reaction Last Updated Verified Sulfa (Sulfonamide Antibiotics) Allergy Intermediate 03/10/15 Yes hydrochlorothiazide Allergy Intermediate 09/08/17 Yes ROS Review of System CONSTITUTIONAL: No fever or chills EYES: No recent changes SKIN: No rash or itching CARDIOVASCULAR: No chest pain, syncope, palpitations, or edema RESPIRATORY: No SOB or cough GASTROINTESTINAL: No vomiting, +Nausea, abdominal pain NEUROLOGICAL: No headaches, +weakness ENDOCRINE: No cold or heat intolerance GENITOURINARY: No urgency or frequency of urination MUSCULOSKELETAL: No back pain or joint pain LYMPHATICS: No enlarged lymph nodes PSYCHIATRIC: No anxiety or depression Physical Exam Physical Exam GEN.: No apparent distress. Alert and oriented. HEENT: Head is normocephalic, Bruising right maxilla area NECK: Supple. LUNGS: Clear to auscultation. HEART: RRR, S1, S2 present. Peripheral pulses intact ABDOMEN: Soft, nontender. Positive bowel sounds. EXTREMITIES: Without any cyanosis. NEUROLOGIC: Normal speech, normal tone PSYCHIATRIC: Normal affect, normal mood. SKIN: No ulcerations Vitals Vitals Vital Signs Date Time Temp Pulse Resp B/P (MAP) Pulse Ox O2 Delivery O2 Flow Rate FiO2 07/30/18 15:35 97.9 65 16 163/72 (102) Room Air 97.9 07/30/18 14:05 94 Labs Labs Laboratory Tests Test 07/30/18 11:16 07/30/18 11:55 White Blood Count 6.0 x10^3/uL (4.0-11.0) Red Blood Count 5.16 x10^6/uL (3.50-5.40) Hemoglobin 14.2 g/dL (12.0-15.5) Hematocrit 43.5 % (36.0-47.0) Mean Corpuscular Volume 84 fL (79-100) Mean Corpuscular Hemoglobin 28 pg (25-35) Mean Corpuscular Hemoglobin Concent 33 g/dL (31-37) Red Cell Distribution Width 14.1 % (11.5-14.5) Platelet Count 199 x10^3/uL (140-400) Neutrophils (%) (Auto) 68 % (31-73) Lymphocytes (%) (Auto) 21 % (24-48) Monocytes (%) (Auto) 8 % (0-9) Eosinophils (%) (Auto) 2 % (0-3) Basophils (%) (Auto) 1 % (0-3) Neutrophils # (Auto) 4.1 x10^3uL (1.8-7.7) Lymphocytes # (Auto) 1.3 x10^3/uL (1.0-4.8) Monocytes # (Auto) 0.5 x10^3/uL (0.0-1.1) Eosinophils # (Auto) 0.1 x10^3/uL (0.0-0.7) Basophils # (Auto) 0.1 x10^3/uL (0.0-0.2) Sodium Level 143 mmol/L (136-145) Potassium Level 3.8 mmol/L (3.5-5.1) Chloride Level 103 mmol/L (98-107) Carbon Dioxide Level 30 mmol/L (21-32) Anion Gap 10 (6-14) Blood Urea Nitrogen 5 mg/dL (7-20) Creatinine 0.7 mg/dL (0.6-1.0) Estimated GFR (Cockcroft-Gault) 82.3 BUN/Creatinine Ratio 7 (6-20) Glucose Level 119 mg/dL (70-99) Calcium Level 9.0 mg/dL (8.5-10.1) Total Bilirubin 0.9 mg/dL (0.2-1.0) Aspartate Amino Transf (AST/SGOT) 141 U/L (15-37) Alanine Aminotransferase (ALT/SGPT) 97 U/L (14-59) Alkaline Phosphatase 459 U/L (46-116) Troponin I Quantitative < 0.017 ng/mL (0.000-0.055) KU-Zwe-[id number]-Type Natriuretic Peptide 211 pg/mL (0-124) Total Protein 6.8 g/dL (6.4-8.2) Albumin 3.2 g/dL (3.4-5.0) Albumin/Globulin Ratio 0.9 (1.0-1.7) Thyroid Stimulating Hormone (TSH) 2.434 uIU/mL (0.358-3.74) Free Thyroxine 1.31 ng/dL (0.76-1.46) Urine Collection Type Unknown Urine Color [place] Urine Clarity Clear Urine pH 5.5 Urine Specific [place] 1.015 Urine Protein Negative mg/dL (NEG-TRACE) Urine Glucose (UA) Negative mg/dL (NEG) Urine Ketones (Stick) Negative mg/dL (NEG) Urine Blood Small (NEG) Urine Nitrite Negative (NEG) Urine Bilirubin Small (NEG) Urine Urobilinogen Dipstick 1.0 mg/dL (0.2 mg/dL) Urine Leukocyte Esterase Small (NEG) Urine RBC 3-5 /HPF (0-2) Urine WBC 1-4 /HPF (0-4) Urine Squamous Epithelial Cells Mod /LPF Urine Transitional Epithelial Cells Occ /LPF Urine Renal Epithelial Cells Occ /LPF Urine Bacteria Few /HPF (0-FEW) Urine Hyaline Casts Moderate /HPF Urine Mucus Mod /LPF Laboratory Tests Test 07/30/18 11:16 07/30/18 11:55 White Blood Count 6.0 x10^3/uL (4.0-11.0) Red Blood Count 5.16 x10^6/uL (3.50-5.40) Hemoglobin 14.2 g/dL (12.0-15.5) Hematocrit 43.5 % (36.0-47.0) Mean Corpuscular Volume 84 fL (79-100) Mean Corpuscular Hemoglobin 28 pg (25-35) Mean Corpuscular Hemoglobin Concent 33 g/dL (31-37) Red Cell Distribution Width 14.1 % (11.5-14.5) Platelet Count 199 x10^3/uL (140-400) Neutrophils (%) (Auto) 68 % (31-73) Lymphocytes (%) (Auto) 21 % (24-48) Monocytes (%) (Auto) 8 % (0-9) Eosinophils (%) (Auto) 2 % (0-3) Basophils (%) (Auto) 1 % (0-3) Neutrophils # (Auto) 4.1 x10^3uL (1.8-7.7) Lymphocytes # (Auto) 1.3 x10^3/uL (1.0-4.8) Monocytes # (Auto) 0.5 x10^3/uL (0.0-1.1) Eosinophils # (Auto) 0.1 x10^3/uL (0.0-0.7) Basophils # (Auto) 0.1 x10^3/uL (0.0-0.2) Sodium Level 143 mmol/L (136-145) Potassium Level 3.8 mmol/L (3.5-5.1) Chloride Level 103 mmol/L (98-107) Carbon Dioxide Level 30 mmol/L (21-32) Anion Gap 10 (6-14) Blood Urea Nitrogen 5 mg/dL (7-20) Creatinine 0.7 mg/dL (0.6-1.0) Estimated GFR (Cockcroft-Gault) 82.3 BUN/Creatinine Ratio 7 (6-20) Glucose Level 119 mg/dL (70-99) Calcium Level 9.0 mg/dL (8.5-10.1) Total Bilirubin 0.9 mg/dL (0.2-1.0) Aspartate Amino Transf (AST/SGOT) 141 U/L (15-37) Alanine Aminotransferase (ALT/SGPT) 97 U/L (14-59) Alkaline Phosphatase 459 U/L (46-116) Troponin I Quantitative < 0.017 ng/mL (0.000-0.055) EG-Ysm-I-Type Natriuretic Peptide 211 pg/mL (0-124) Total Protein 6.8 g/dL (6.4-8.2) Albumin 3.2 g/dL (3.4-5.0) Albumin/Globulin Ratio 0.9 (1.0-1.7) Thyroid Stimulating Hormone (TSH) 2.434 uIU/mL (0.358-3.74) Free Thyroxine 1.31 ng/dL (0.76-1.46) Urine Collection Type Unknown Urine Color [place] Urine Clarity Clear Urine pH 5.5 Urine Specific [place] 1.015 Urine Protein Negative mg/dL (NEG-TRACE) Urine Glucose (UA) Negative mg/dL (NEG) Urine Ketones (Stick) Negative mg/dL (NEG) Urine Blood Small (NEG) Urine Nitrite Negative (NEG) Urine Bilirubin Small (NEG) Urine Urobilinogen Dipstick 1.0 mg/dL (0.2 mg/dL) Urine Leukocyte Esterase Small (NEG) Urine RBC 3-5 /HPF (0-2) Urine WBC 1-4 /HPF (0-4) Urine Squamous Epithelial Cells Mod /LPF Urine Transitional Epithelial Cells Occ /LPF Urine Renal Epithelial Cells Occ /LPF Urine Bacteria Few /HPF (0-FEW) Urine Hyaline Casts Moderate /HPF Urine Mucus Mod /LPF VTE Prophylaxis Ordered VTE Prophylaxis Devices: No VTE Pharmacological Prophylaxi: No Assessment/Plan Assessment/Plan Pt is a 72yo CF admitted for weakness 1)Weakness- will have PT/OT evaluate and treat 2)Transaminitis with biliary ductal dilatation- will consult GI 3)Recurrent UTI- Current U/A appears to be dirty specimen. Urine culture pending 4)Depression/Anxiety- pt continued on Cymbalta 60mg ER, Buproprion 100mg BID and Clonazepam 2mg BID 5)RA- pt continued on hydroxychloroquine 400mg daily 6)COPD- pt continued on Budesonide, Duonebs and albuterol 7)Hypothyroidism- previously not at goal. Pt continued on levothyroxine 50mcg 8)HTN- BP uncontrolled. Currently on Diltiazem, will add lisinopril 9)PEM-mild ERNA BE MD Jul 30, 2018 16:36
--- NOTE | 2018-07-30 16:54 | PDOC2 ---
GI CONSULT Reason For Consult: Abnormal LFT's/Abnormal CT HPI: HPI: 73 y/o female came to ER with complaints of dizziness and recent falls. Laboratory disclosed abnormal LFT's. CT scan showed dilated biliary system post -jewels. We were asked to see. Other than occasional LQ discomfort and constipation she is w/o complaints. Specifically denies itching. Bilirubin normal. From old CTs, has had dilated system for many years. [place] to have GERD ; no heartburn now on PPI at home. Occasional dysphagia, mostly to PB sandwiches. H/o "achalasia" with prior BOTOX injections x 2. Remote fundoplication for her reflux. No PUD. S/p jewels at time of fundo. No knowledge of any liver or pancreatic issues. No tobacco use. No ETOH for 4 years. Alternating loose stools (especially after laxative) and constipation. H/o diverticulosis; colonoscopy in 2010 and 2--3 years ago negative save the diverticula. Had probably diverticular bleed before last exam. Wt/appetite OK. No N, V. 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 PMH: PMH: COPD, anxiety, depression, FMS, OA, RA, WILLIE, hypothyroidism. S/p jewels, ORIF left ankle, rotator cuff surgery, fundoplication, appy, ECCE FH: Family History: No pertinent hx Social History: Smoke: No ALCOHOL: none Drugs: None ROS: GEN: Denies fevers, chills, sweats HEENT: Denies blurred vision, sore throat CV: Denies chest pain RESP: Denies shortness of air, cough GI: Per HPI : Denies hematuria, dysuria ENDO: Denies weight changes NEURO: Denies confusion MSK: Denies weakness, joint pain/swelling SKIN: Denies jaundice, pruritus Vitals: Vitals: Vital Signs Date Time Temp Pulse Resp B/P (MAP) Pulse Ox O2 Delivery O2 Flow Rate FiO2 07/30/18 15:35 97.9 65 16 163/72 (102) Room Air 97.9 07/30/18 14:05 94 Labs: Labs: Laboratory Tests Test 07/30/18 11:16 07/30/18 11:55 White Blood Count 6.0 x10^3/uL (4.0-11.0) Red Blood Count 5.16 x10^6/uL (3.50-5.40) Hemoglobin 14.2 g/dL (12.0-15.5) Hematocrit 43.5 % (36.0-47.0) Mean Corpuscular Volume 84 fL (79-100) Mean Corpuscular Hemoglobin 28 pg (25-35) Mean Corpuscular Hemoglobin Concent 33 g/dL (31-37) Red Cell Distribution Width 14.1 % (11.5-14.5) Platelet Count 199 x10^3/uL (140-400) Neutrophils (%) (Auto) 68 % (31-73) Lymphocytes (%) (Auto) 21 % (24-48) Monocytes (%) (Auto) 8 % (0-9) Eosinophils (%) (Auto) 2 % (0-3) Basophils (%) (Auto) 1 % (0-3) Neutrophils # (Auto) 4.1 x10^3uL (1.8-7.7) Lymphocytes # (Auto) 1.3 x10^3/uL (1.0-4.8) Monocytes # (Auto) 0.5 x10^3/uL (0.0-1.1) Eosinophils # (Auto) 0.1 x10^3/uL (0.0-0.7) Basophils # (Auto) 0.1 x10^3/uL (0.0-0.2) Sodium Level 143 mmol/L (136-145) Potassium Level 3.8 mmol/L (3.5-5.1) Chloride Level 103 mmol/L (98-107) Carbon Dioxide Level 30 mmol/L (21-32) Anion Gap 10 (6-14) Blood Urea Nitrogen 5 mg/dL (7-20) Creatinine 0.7 mg/dL (0.6-1.0) Estimated GFR (Cockcroft-Gault) 82.3 BUN/Creatinine Ratio 7 (6-20) Glucose Level 119 mg/dL (70-99) Calcium Level 9.0 mg/dL (8.5-10.1) Total Bilirubin 0.9 mg/dL (0.2-1.0) Aspartate Amino Transf (AST/SGOT) 141 U/L (15-37) Alanine Aminotransferase (ALT/SGPT) 97 U/L (14-59) Alkaline Phosphatase 459 U/L (46-116) Troponin I Quantitative < 0.017 ng/mL (0.000-0.055) EN-Jun-U-Type Natriuretic Peptide 211 pg/mL (0-124) Total Protein 6.8 g/dL (6.4-8.2) Albumin 3.2 g/dL (3.4-5.0) Albumin/Globulin Ratio 0.9 (1.0-1.7) Thyroid Stimulating Hormone (TSH) 2.434 uIU/mL (0.358-3.74) Free Thyroxine 1.31 ng/dL (0.76-1.46) Urine Collection Type Unknown Urine Color [place] Urine Clarity Clear Urine pH 5.5 Urine Specific [place] 1.015 Urine Protein Negative mg/dL (NEG-TRACE) Urine Glucose (UA) Negative mg/dL (NEG) Urine Ketones (Stick) Negative mg/dL (NEG) Urine Blood Small (NEG) Urine Nitrite Negative (NEG) Urine Bilirubin Small (NEG) Urine Urobilinogen Dipstick 1.0 mg/dL (0.2 mg/dL) Urine Leukocyte Esterase Small (NEG) Urine RBC 3-5 /HPF (0-2) Urine WBC 1-4 /HPF (0-4) Urine Squamous Epithelial Cells Mod /LPF Urine Transitional Epithelial Cells Occ /LPF Urine Renal Epithelial Cells Occ /LPF Urine Bacteria Few /HPF (0-FEW) Urine Hyaline Casts Moderate /HPF Urine Mucus Mod /LPF Mixed pattern on LFT's, though primarily AP. Bilirubin normal. Allergies: Coded Allergies: Sulfa (Sulfonamide Antibiotics) (Verified Allergy, Intermediate, 03/10/15) hydrochlorothiazide (Verified Allergy, Intermediate, 09/08/17) Medications: Current Medications Medications (Trade) Dose Ordered Sig/James Route PRN Reason Start Time Stop Time Status Last Admin Dose Admin Sodium Chloride 1,000 ml @ 1,000 mls/hr Q1H IV 07/30/18 11:22 07/30/18 12:21 DC 07/30/18 11:55 Iohexol (Omnipaque 300 Mg/ml) 75 ml 1X ONCE IV 07/30/18 13:00 07/30/18 13:01 DC 07/30/18 12:58 Imaging: Imaging: On CT: IMPRESSION: Progressive dilatation of the common bile duct and intrahepatic biliary tree down to the pancreatic head. No focal abnormality seen at the pancreas. Small hiatal hernia. Mild infiltrate or atelectasis posterior medially at the left lung base. Small focus of infiltrate or atelectasis laterally at the right lung base. Diverticulosis in the sigmoid colon without diverticulitis. 2 small hypodense lesions probably representing cysts in the right kidney measuring up to 9 mm in size. PE: GEN: NAD HEENT: Atraumatic, PERRLA LUNGS: CTAB HEART: RRR, no murmurs ABD: NABS, S/ND/NT, no masses EXTREMITY: No edema SKIN: No rashes, no jaundice NEURO/PSYCH: A & O 3 A/P: A/P: IMP: Dilated biliary system; present for some time. Has had variable, mildly abnormal LFT's before, not to this level. Given recent fall, some of the enzymes could be from muscle or bone. Hard to think malignant or stone issue since present so long. GERD H/o "achalasia" S/p jewels. Diverticulosis with history of bleeding. REC: MRCP Fractionate AP, GGTP Continue PPI. --other pending. Thank you for allowing me to assist in the care of this patient. Please call if questions. GUILLERMINA NUNEZ MD Jul 30, 2018 16:54
[2018-07-30] MEDS: LISINOPRIL 20 MG TABLET PO SCH (17:34)
[2018-07-30 19:00] VITALS: BP 109/67
[2018-07-30] MEDS: IPRATRPIUM/ALBUTEROL 0.5/2.5MG 3 ML NEBU. NEB SCH ×2 (20:00→20:37)
[2018-07-30] MEDS: BUDESONIDE 0.5 MG/2 ML NEBU. NEB SCH (20:37)
[2018-07-30] MEDS: buPROPion 100 MG TABLET PO SCH (21:18)
[2018-07-30 23:00] VITALS: BP 104/54
[2018-07-31 03:00] VITALS: BP 114/54
[2018-07-31] MEDS: LEVOTHYROXINE 50 MCG TABLET PO SCH (05:46)
[2018-07-31 06:24] LABS: BASO # 0.1 x10^3/uL (0.0-0.2); BASO % 1 % (0-3); EOS # 0.2 x10^3/uL (0.0-0.7); EOS % 4 % (0-3); HEMATOCRIT 37.6 % (36.0-47.0); HEMOGLOBIN 12.6 g/dL (12.0-15.5); LYMPH % 31 % (24-48); MEAN CORPUSCULAR HEMOGLOBIN 28 pg (25-35); MEAN CORPUSCULAR HGB CONC 34 g/dL (31-37); MEAN CORPUSCULAR VOLUME 85 fL (79-100); MONO # 0.5 x10^3/uL (0.0-1.1); MONO % 8 % (0-9); NEUT # 3.7 x10^3uL (1.8-7.7); NEUT % 56 % (31-73); PLATELET COUNT 180 x10^3/uL (140-400); RED BLOOD COUNT 4.44 x10^6/uL (3.50-5.40); RED CELL DISTRIBUTION WIDTH 14.1 % (11.5-14.5); WHITE BLOOD COUNT 6.5 x10^3/uL (4.0-11.0)
[2018-07-31 06:43] LABS: ALBUMIN 2.8 g/dL (3.4-5.0); ALBUMIN/GLOBULIN RATIO 0.9 (1.0-1.7); CALCIUM 8.4 mg/dL (8.5-10.1); CREATININE 0.6 mg/dL (0.6-1.0); GFR 98.3; POTASSIUM 3.7 mmol/L (3.5-5.1); TOTAL BILIRUBIN 0.3 mg/dL (0.2-1.0); TOTAL PROTEIN 5.9 g/dL (6.4-8.2)
[2018-07-31 07:00] VITALS: BP 146/70
[2018-07-31] MEDS: PANTOPRAZOLE 40 MG TABLET.DR. PO SCH (07:30)
[2018-07-31] MEDS: IPRATRPIUM/ALBUTEROL 0.5/2.5MG 3 ML NEBU. NEB SCH ×4 (07:31→19:57)
[2018-07-31] MEDS: BUDESONIDE 0.5 MG/2 ML NEBU. NEB SCH ×2 (07:32→19:57)
[2018-07-31] MEDS: DULoxetine HCL 30 MG CAPSULE.DR PO SCH (07:38)
[2018-07-31] MEDS: HYDROXYCHLOROQUINE 200 MG TABLET PO SCH (07:39)
[2018-07-31] MEDS: buPROPion 100 MG TABLET PO SCH ×2 (07:39→20:16)
[2018-07-31] MEDS: LISINOPRIL 20 MG TABLET PO SCH (09:00)
--- NOTE | 2018-07-31 09:22 | PDOC ---
Subjective: Subjective: NPO for MRCP. Lower abd "ache" x 1 week - comes and goes, unaffected by eating but also reports decreased appetite. Thinks last BM on Sat. Objective: Vital Signs: Vital Signs Date Time Temp Pulse Resp B/P (MAP) Pulse Ox O2 Delivery O2 Flow Rate FiO2 07/31/18 08:00 Room Air 07/31/18 07:00 98.1 65 16 146/70 (95) 100 98.1 07/31/18 03:00 2.0 Labs: Laboratory Tests Test 07/30/18 11:16 07/30/18 11:55 07/31/18 05:33 White Blood Count 6.0 x10^3/uL 6.5 x10^3/uL Red Blood Count 5.16 x10^6/uL 4.44 x10^6/uL Hemoglobin 14.2 g/dL 12.6 g/dL Hematocrit 43.5 % 37.6 % Mean Corpuscular Volume 84 fL 85 fL Mean Corpuscular Hemoglobin 28 pg 28 pg Mean Corpuscular Hemoglobin Concent 33 g/dL 34 g/dL Red Cell Distribution Width 14.1 % 14.1 % Platelet Count 199 x10^3/uL 180 x10^3/uL Neutrophils (%) (Auto) 68 % 56 % Lymphocytes (%) (Auto) 21 % 31 % Monocytes (%) (Auto) 8 % 8 % Eosinophils (%) (Auto) 2 % 4 % Basophils (%) (Auto) 1 % 1 % Neutrophils # (Auto) 4.1 x10^3uL 3.7 x10^3uL Lymphocytes # (Auto) 1.3 x10^3/uL 2.0 x10^3/uL Monocytes # (Auto) 0.5 x10^3/uL 0.5 x10^3/uL Eosinophils # (Auto) 0.1 x10^3/uL 0.2 x10^3/uL Basophils # (Auto) 0.1 x10^3/uL 0.1 x10^3/uL Sodium Level 143 mmol/L 142 mmol/L Potassium Level 3.8 mmol/L 3.7 mmol/L Chloride Level 103 mmol/L 104 mmol/L Carbon Dioxide Level 30 mmol/L 29 mmol/L Anion Gap 10 9 Blood Urea Nitrogen 5 mg/dL 5 mg/dL Creatinine 0.7 mg/dL 0.6 mg/dL Estimated GFR (Cockcroft-Gault) 82.3 98.3 BUN/Creatinine Ratio 7 8 Glucose Level 119 mg/dL 93 mg/dL Calcium Level 9.0 mg/dL 8.4 mg/dL Total Bilirubin 0.9 mg/dL 0.3 mg/dL Aspartate Amino Transf (AST/SGOT) 141 U/L 66 U/L Alanine Aminotransferase (ALT/SGPT) 97 U/L 76 U/L Alkaline Phosphatase 459 U/L 372 U/L Troponin I Quantitative < 0.017 ng/mL AC-Vwr-P-Type Natriuretic Peptide 211 pg/mL Total Protein 6.8 g/dL 5.9 g/dL Albumin 3.2 g/dL 2.8 g/dL Albumin/Globulin Ratio 0.9 0.9 Thyroid Stimulating Hormone (TSH) 2.434 uIU/mL Free Thyroxine 1.31 ng/dL Urine Collection Type Unknown Urine Color [place] Urine Clarity Clear Urine pH 5.5 Urine Specific [place] 1.015 Urine Protein Negative mg/dL Urine Glucose (UA) Negative mg/dL Urine Ketones (Stick) Negative mg/dL Urine Blood Small Urine Nitrite Negative Urine Bilirubin Small Urine Urobilinogen Dipstick 1.0 mg/dL Urine Leukocyte Esterase Small Urine RBC 3-5 /HPF Urine WBC 1-4 /HPF Urine Squamous Epithelial Cells Mod /LPF Urine Transitional Epithelial Cells Occ /LPF Urine Renal Epithelial Cells Occ /LPF Urine Bacteria Few /HPF Urine Hyaline Casts Moderate /HPF Urine Mucus Mod /LPF Gamma Glutamyl Transpeptidase 277 U/L PE: GEN: NAD LUNGS: room air HEART: RRR ABD: hypoactive BS, vague suprapubic discomfort SKIN: ecchymosis right cheek/eye area NEURO/PSYCH: A & O 3 A/P: Elevated LFTs (better - GGT elevated) and dilated biliary system s/p jewels Decreased appetite, lower abd/suprapubic ache RA on Plaquenil -- Await MRCP - RN says must be cleared by insurance first because her admitting diagnosis was not "abdominal pain." AP isoenzymes pending. CHRISTIAN CARNEY Jul 31, 2018 09:22
[2018-07-31] MEDS: POLYETHYLENE GLYCOL 3350 17 GM PACKET. PO SCH (09:37)
[2018-07-31] MEDS: clonazePAM 1 MG TABLET PO PRN ×2 (10:35→20:16)
[2018-07-31 11:00] VITALS: BP 153/78
--- NOTE | 2018-07-31 12:59 | PDOC ---
PROGRESS NOTES Subjective She is still not feeling well with symptoms of dizziness, fatigue, malaise, poor appetite and upper abdominal discomfort, she did have a BM over the weekend. Her thyroid dose was recently increased as her TSH was 7 but it is now normal, she was started on 50 mcg + her prior 88 mcg dose of replacement last week. Her left hand is still sore from her fall last Tuesday, her face is still bruised from her fall. She is not steady enough to get to the bathroom and is now using the bedside commode. Her liver enzymes are improving, she is malnourished though with albumin of 2.6. She states she has not previously had an aneurysm and her chart is wrong for mentioning it Objective Afebrile General: bruise under right eye and on left cheek, alert but just talking causes fatigue Heart: RRR Lungs: CTA Abd: soft and no areas of tenderness noted, no palpable HSM Ext: no C/C/E, no muscular tenderness MS: ulnar deviation of fingers without acute synovitis skin: resolving bruise of left dorsal hand Neurologic: no focal findings but has generalized weakness Vital Signs Vital Signs Date Time Temp Pulse Resp B/P (MAP) Pulse Ox O2 Delivery O2 Flow Rate FiO2 07/31/18 12:12 Room Air 07/31/18 11:00 98.0 75 18 153/78 (103) 93 98.0 07/31/18 03:00 2.0 I & O Intake and Output 07/31/18 07:00 Intake Total 1300 ml Output Total 700 ml Balance 600 ml Intake Oral 300 ml IV Total 1000 ml Output Urine Total 700 ml # Voids 1 Assessment and Plan A/P 1) Dizziness - with recent fall and contusion to face and left hand with normal imaging, check orthostatics, may need neuro consult, start PT,OT 2) Elevated liver function tests - hx of prior cholecystectomy, improving but CT imaging suggesting ductal dilation and with her other symptoms and ductal malignany needs to be ruled out, GI following, MRCP ordered 3) OA/RA - continue meds - recent sed rate normal, hx of 4) hypothyroidism - dose recently increased as outpatient and TSH therapeutic now 5) Depression - chronic , continue meds - recent B12 and Vit D normal 6) anxiety - on anxiolytic skilled nursing, continue 7) hx of GI bleed - hospitalized 01/16 [facility] 8) 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
[2018-07-31 15:00] VITALS: BP 126/75
--- NOTE | 2018-07-31 15:54 | NUR ---
SW consulted for SNU eval. Chart reviewed. Pt lives at home alone. Pt was evaluated by PT and does not have skilled needs. Pt at this time does not qualify for SNU evaluation. Discussed with RN.
[2018-07-31 19:00] VITALS: BP 151/79
[2018-07-31 22:36] VITALS: BP_SYST 14; BP_SYST 145; BP_DIAS 76
[2018-08-01 03:00] VITALS: BP 154/82
[2018-08-01 04:23] LABS: BASO # 0.1 x10^3/uL (0.0-0.2); BASO % 1 % (0-3); EOS # 0.3 x10^3/uL (0.0-0.7); EOS % 4 % (0-3); HEMATOCRIT 36.8 % (36.0-47.0); LYMPH # 2.3 x10^3/uL (1.0-4.8); LYMPH % 31 % (24-48); MEAN CORPUSCULAR HEMOGLOBIN 28 pg (25-35); MEAN CORPUSCULAR HGB CONC 33 g/dL (31-37); MEAN CORPUSCULAR VOLUME 85 fL (79-100); MONO # 0.7 x10^3/uL (0.0-1.1); MONO % 10 % (0-9); NEUT % 54 % (31-73); PLATELET COUNT 174 x10^3/uL (140-400); RED BLOOD COUNT 4.36 x10^6/uL (3.50-5.40); WHITE BLOOD COUNT 7.4 x10^3/uL (4.0-11.0)
[2018-08-01 04:37] LABS: ALBUMIN 2.8 g/dL (3.4-5.0); ALBUMIN/GLOBULIN RATIO 0.9 (1.0-1.7); CALCIUM 8.7 mg/dL (8.5-10.1); CREATININE 0.7 mg/dL (0.6-1.0); GFR 82.3; POTASSIUM 3.8 mmol/L (3.5-5.1); TOTAL BILIRUBIN 0.2 mg/dL (0.2-1.0); TOTAL PROTEIN 5.8 g/dL (6.4-8.2)
[2018-08-01] MEDS: LEVOTHYROXINE 50 MCG TABLET PO SCH (05:35)
[2018-08-01 07:00] VITALS: BP 179/90
[2018-08-01] MEDS: PANTOPRAZOLE 40 MG TABLET.DR. PO SCH (07:33)
[2018-08-01] MEDS: BUDESONIDE 0.5 MG/2 ML NEBU. NEB SCH (08:50)
[2018-08-01] MEDS: IPRATRPIUM/ALBUTEROL 0.5/2.5MG 3 ML NEBU. NEB SCH ×4 (08:50→16:00)
--- NOTE | 2018-08-01 09:03 | PDOC ---
Subjective: Subjective: Feeling better - says she might go to SNU today. Denies abd pain. Ate a good breakfast, had a large stool this morning. Says she'll think about MRCP but she's not sure she wants to pursue it. Objective: Vital Signs: Vital Signs Date Time Temp Pulse Resp B/P (MAP) Pulse Ox O2 Delivery O2 Flow Rate FiO2 08/01/18 08:52 95 Room Air 08/01/18 07:00 97.4 83 16 179/90 (119) 97.4 08/01/18 03:00 2.0 Labs: Laboratory Tests Test 08/01/18 03:40 White Blood Count 7.4 x10^3/uL Red Blood Count 4.36 x10^6/uL Hemoglobin 12.0 g/dL Hematocrit 36.8 % Mean Corpuscular Volume 85 fL Mean Corpuscular Hemoglobin 28 pg Mean Corpuscular Hemoglobin Concent 33 g/dL Red Cell Distribution Width 14.0 % Platelet Count 174 x10^3/uL Neutrophils (%) (Auto) 54 % Lymphocytes (%) (Auto) 31 % Monocytes (%) (Auto) 10 % Eosinophils (%) (Auto) 4 % Basophils (%) (Auto) 1 % Neutrophils # (Auto) 4.0 x10^3uL Lymphocytes # (Auto) 2.3 x10^3/uL Monocytes # (Auto) 0.7 x10^3/uL Eosinophils # (Auto) 0.3 x10^3/uL Basophils # (Auto) 0.1 x10^3/uL Sodium Level 143 mmol/L Potassium Level 3.8 mmol/L Chloride Level 106 mmol/L Carbon Dioxide Level 28 mmol/L Anion Gap 9 Blood Urea Nitrogen 7 mg/dL Creatinine 0.7 mg/dL Estimated GFR (Cockcroft-Gault) 82.3 BUN/Creatinine Ratio 10 Glucose Level 108 mg/dL Calcium Level 8.7 mg/dL Total Bilirubin 0.2 mg/dL Aspartate Amino Transf (AST/SGOT) 37 U/L Alanine Aminotransferase (ALT/SGPT) 54 U/L Alkaline Phosphatase 318 U/L Total Protein 5.8 g/dL Albumin 2.8 g/dL Albumin/Globulin Ratio 0.9 PE: GEN: NAD, up to chair LUNGS: CTAB HEART: RRR ABD: NABS, S/ND/NT NEURO/PSYCH: A & O 3 A/P: Elevated Alk Phos Decreased appetite, lower abd/suprapubic ache - resolved -- Our office will contact re: trixie CHAN DC per primary. CHRISTIAN CARNEY Aug 01, 2018 09:03
[2018-08-01] MEDS: DULoxetine HCL 30 MG CAPSULE.DR PO SCH (09:11)
[2018-08-01] MEDS: POLYETHYLENE GLYCOL 3350 17 GM PACKET. PO SCH (09:12)
[2018-08-01] MEDS: HYDROXYCHLOROQUINE 200 MG TABLET PO SCH (09:12)
[2018-08-01] MEDS: buPROPion 100 MG TABLET PO SCH (09:14)
[2018-08-01] MEDS: LISINOPRIL 20 MG TABLET PO SCH (09:14)
[2018-08-01] MEDS: clonazePAM 1 MG TABLET PO PRN (09:19)
[2018-08-01 11:00] VITALS: BP 173/94
[2018-08-01] MEDS ORDERED: LISI-130 PO (13:33)
[2018-08-01] MEDS ORDERED: LEVO50TA PO (13:33)
[2018-08-01] MEDS ORDERED: HYDR200T5 PO (13:33)
[2018-08-01] MEDS ORDERED: LEVO88TA4 PO (13:33)
[2018-08-01] MEDS ORDERED: DILT180C29 PO (13:33)
[2018-08-01] MEDS ORDERED: POLY17PO28 PO (13:33)
--- NOTE | 2018-08-01 13:36 | SNU/HH DC ---
DISCHARGE WITH HOME HEALTH DISCHARGE INFORMATION: Discharge Date: Aug 01, 2018 Final Diagnosis: Problems Medical Problems: (1) Dizziness Status: Acute (2) Elevated liver function tests Status: Acute Condition on Discharge: Stable CODE STATUS: Code Status: DNR/DNI HOME HEALTH: Face to Face: I certify this patient is under my care and that I, or a nurse practitioner or physician's construction administrative assistant working with me, had a face to face encounter that meets the physician face to face encounter requirements with this patient on 08/01/18. Mcfp For: Medication Management RN For Eval/Treatment: Yes Physical Therapy For: Evalulation/Treatment Occupational Therapy For: Evaluation/Treatment Pt Meets Homebound Status: Unsteady balance w/ amb,, Frequent falls w/ injury, Limited distance walking POST DISCHARGE ORDERS: Activity Instructions for Disc: Activity as tolerated Weight Bearing Status after Di: No restrictions Bathing Instructions: Shower-keep dressing dry, No Tub Bath until see DIET AFTER DISCHARGE: Low Sodium 2 gm Wound/Incision Care: No wound care needed FOLLOW-UP: Follow Up With: PCP as directed 1-2 weeks TREATMENT/EQUIPMENT ORDERS: Adaptive Equipment Issued: None CERTIFICATION STATEMENT: Certification Statement: Certification Statement: Based on the above finding, I certify that this patient is confined to the home and needs intermittent senior care care, physical therapy and/or speech therapy, or continues to need occupational therapy.~ This patient is under my care, and I have initiated the establishment of the plan of care.~ This patient will be followed by myself or a community physician who will periodically review the plan of care. Home Meds Active Scripts Hydroxychloroquine Sulfate (HYDROXYCHLOROQUINE SULFATE) 200 Mg Tablet, 400 MG PO DAILY for RA for 30 Days, #60 TAB Prov:Deirdre QUINTEROS MD 08/01/18 Lisinopril (LISINOPRIL) 40 Mg Tablet, 20 MG PO DAILY for bp for 30 Days, #15 TAB Prov:Deirdre QUINTEROS MD 08/01/18 Diltiazem Hcl (DILTIAZEM 24HR CD) 180 Mg Cap.er.24h, 180 MG PO DAILY for bp for 30 Days, #30 CAP.SR Prov:Deirdre QUINTEROS MD 08/01/18 Polyethylene Glycol 3350 (POLYETHYLENE GLYCOL 3350) 17 Gm Powd.pack, 17 GM PO DAILY for constipation for 30 Days, #30 PKT Prov:Deirdre QUINTEROS MD 08/01/18 Levothyroxine Sodium (LEVOTHYROXINE SODIUM) 88 Mcg Tablet, 88 MCG PO DAILYAC for THYROID SUPPLEMENT, #30 TAB 0 Refills Prov:Deirdre QUINTEROS MD 08/01/18 Levothyroxine Sodium (SYNTHROID) 50 Mcg Tablet, 50 MCG PO DAILY06 for thyroid for 30 Days, #30 TAB Prov:Deirdre QUINTEROS MD 08/01/18 Diclofenac Sodium (DICLOFENAC SODIUM) 50 Mg Tablet.dr, 1 TAB PO BID, #10 TAB 0 Refills Prov:CODY CORADO APRN 06/23/18 Reported Medications Duloxetine Hcl (CYMBALTA) 60 Mg Capsule.dr, 1 CAP PO DAILY, #90 CAP 3 Refills 09/08/17 Clonazepam (CLONAZEPAM) 2 Mg Tablet, 2 MG PO BID, TAB 09/08/17 Cholecalciferol (Vitamin D3) (VITAMIN D3) 1,000 Unit Tablet, 1 TAB PO DAILY, # 30 TAB 5 Refills 03/10/15 Multivits-Min/Fa/Lycopene/Lut (CENTRUM SILVER TABLET) 1 Each Tablet, 1 EACH PO DAILY for SUPPLEMENT LAST DOSE THIS AM NEXT DOSE TOMORROW AM 07/10/14 [place]-3 Fatty Acids/Fish Oil (FISH OIL 1,000 MG SOFTGEL) 1 Each Capsule, 1 EACH PO DAILY for SUPPLEMENT LAST DOSE THIS AM NEXT DOSE TOMORROW AM 07/10/14 Ipratropium/Albuterol Sulfate (COMBIVENT RESPIMAT INHAL) 4 Gm Aer.w.adap, 1 INH IH QID for LUNGS, INHALER MAY RESUME WHEN AT HOME 02/28/14 Pantoprazole Sodium (PANTOPRAZOLE SODIUM) 40 Mg Tablet.dr, 1 TAB PO DAILY for STOMACH, #30 TAB 3 Refills LAST DOSE THIS AM NEXT DOSE TOMORROW AM 02/28/14 Albuterol Sulfate (ALBUTEROL SULFATE CONC NEB SOLN) 2.5 Mg/0.5 Ml Vial.neb, 1 VIAL NEB BID for LUNGS, #120 VIAL 5 Refills LAST DOSE THIS AM NEXT DOSE TONIGHT 02/28/14 Aspirin (ASPIR 81) 81 Mg Tablet., 81 MG PO for BLOOD THINNER, TAB LAST DOSE THIS AM NEXT DOSE TOMOOROW AM 08/15/13 Discontinued Reported Medications Amlodipine Besylate (AMLODIPINE BESYLATE) 5 Mg Tablet, 1 TAB PO DAILY for BLOOD PRESSURE, #30 TAB 5 Refills LAST DOSE THIS AM NEXT DOSE TOMORROW AM 02/28/14 Levothyroxine Sodium (LEVOTHYROXINE SODIUM) 25 Mcg Tablet, 25 MCG PO DAILY for thyroid LAST DOSE THIS AM NEXT TOMORROW 08/15/13 Discontinued Scripts Nitrofurantoin Monohyd/M-Cryst (MACROBID 100 MG CAPSULE) 100 Mg Capsule, 1 CAP PO BID, #14 CAP Prov:CODY CORADO BUTTON BREAKER OPERATOR 06/23/18 Metronidazole (FLAGYL) 500 Mg Tablet, 1 TAB PO BID, #14 TAB Prov:ALIZA CARDENAS BUTTON BREAKER OPERATOR 01/10/18 Ciprofloxacin Hcl (CIPRO) 500 Mg Tablet, 1 TAB PO BID, #20 TAB Prov:ALIZA CARDENAS BUTTON BREAKER OPERATOR 01/10/18 Deirdre QUINTEROS MD Aug 01, 2018 13:36
[2018-08-01 15:00] VITALS: BP 150/91
--- NOTE | 2018-08-01 15:07 | NUR ---
SW following pt. [facility] СВЕТЛАНА ph[facility] and [email or web address] Discussed with RN.
--- NOTE | 2018-08-01 17:58 | PDOC3 ---
Discharge Summary [facility] Date of Admission: Jul 30, 2018 Discharge Date: Aug 01, 2018 Admitting Diagnosis dizziness, weakness Final Diagnosis Problems Medical Problems: (1) Dizziness Status: Acute (2) Elevated liver function tests Status: Acute Brief Hospital Course Ms. 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 Pt continued on levothyroxine 50 + 88 mcg at discharge which is her new home regimen 8)HTN- BP uncontrolled. Continued on Diltiazem, added lisinopril 9)PEM-mild - appetite improved during stay with her eating complete breakfast and lunch today 10) constipation - resolved with Miralax, continue bowel program after discharge Patient History: Family history: Cardiovascular disease (situation) G8 BROTHER Disposition home with HH CONDITION AT DISCHARGE: Improved, Stable Scheduled Albuterol Sulfate (Albuterol Sulfate Conc Neb Soln), 1 VIAL NEB BID, (Reported) Cholecalciferol (Vitamin D3) (Vitamin D3), 1 TAB PO DAILY, (Reported) Clonazepam (Clonazepam), 2 MG PO BID, (Reported) Diclofenac Sodium (Diclofenac Sodium), 1 TAB PO BID Diltiazem Hcl (Diltiazem 24HR Cd), 180 MG PO DAILY Duloxetine Hcl (Cymbalta), 1 CAP PO DAILY, (Reported) Hydroxychloroquine Sulfate (Hydroxychloroquine Sulfate), 400 MG PO DAILY Ipratropium/Albuterol Sulfate (Combivent Respimat Inhal), 1 INH IH QID, ( Reported) Levothyroxine Sodium (Synthroid), 50 MCG PO DAILY06 Levothyroxine Sodium (Levothyroxine Sodium), 88 MCG PO DAILYAC Lisinopril (Lisinopril), 20 MG PO DAILY Multivits-Min/Fa/Lycopene/Lut (Centrum Silver Tablet), 1 EACH PO DAILY, ( Reported) [place]-3 Fatty Acids/Fish Oil (Fish Oil 1,000 Mg Softgel), 1 EACH PO DAILY, ( Reported) Pantoprazole Sodium (Pantoprazole Sodium), 1 TAB PO DAILY, (Reported) Polyethylene Glycol 3350 (Polyethylene Glycol 3350), 17 GM PO DAILY Miscellaneous Medications Aspirin (Aspir 81), 81 MG PO, (Reported) Discontinued Medications Amlodipine Besylate (Amlodipine Besylate), 1 TAB PO DAILY, (Reported) Ciprofloxacin Hcl (Cipro), 1 TAB PO BID Levothyroxine Sodium (Levothyroxine Sodium), 25 MCG PO DAILY, (Reported) Metronidazole (Flagyl), 1 TAB PO BID Nitrofurantoin Monohyd/M-Cryst (Macrobid 100 Mg Capsule), 1 CAP PO BID Follow Up 1-2 weeks Patient Instructions she will obtain a lifeline Deirdre QUINTEROS MD Aug 01, 2018 17:58
--- NOTE | 2018-08-01 18:40 | NUR ---
Discharge Note: [place]AY [place] Discharge instructions and discharge home medications reviewed with Patient and a copy given. All questions have been answered and understanding verbalized. The following instructions and handouts were given: dizziness Discontinued lines and drains: Peripheral IV intact. Patient discharged to Home w/services with Self via Wheelchair
[2018-08-02 10:24] LABS: ALKPHOS BONE 37 % (14-68); ALKPHOS INTES% 3 % (0-18); ALKPHOS LIV 60 % (18-85); ALPHOS TOT 366 IU/L (39-117)
== END 2018-08-01 18:42 | disposition home health service (06) | DRG 149 ==
LOC: ER 11:00 → 5 NORTH 13:40
PROVIDERS: ADMIT Family Medicine; ATTEND Family Medicine
DX: R42 Dizziness and giddiness (principal); J98.11 Atelectasis; E46 Unspecified protein-calorie malnutrition; J44.9 Chronic obstructive pulmonary disease, unspecified; F32.9 Major depressive disorder, single episode, unspecified; F41.9 Anxiety disorder, unspecified; E03.9 Hypothyroidism, unspecified; G47.33 Obstructive sleep apnea (adult) (pediatric); I10 Essential (primary) hypertension; K21.9 Gastro-esophageal reflux disease without esophagitis; K44.9 Diaphragmatic hernia without obstruction or gangrene; M06.9 Rheumatoid arthritis, unspecified; M79.7 Fibromyalgia; K83.8 Other specified diseases of biliary tract; K57.30 Diverticulosis of large intestine without perforation or abscess without bleeding; M19.90 Unspecified osteoarthritis, unspecified site; K59.00 Constipation, unspecified; Z96.659 Presence of unspecified artificial knee joint; Z90.49 Acquired absence of other specified parts of digestive tract; Z79.899 Other long term (current) drug therapy; Z88.2 Allergy status to sulfonamides; Z88.8 Allergy status to other drugs, medicaments and biological substances; Z80.9 Family history of malignant neoplasm, unspecified; Z82.49 Family history of ischemic heart disease and other diseases of the circulatory system; Z68.28 Body mass index [BMI] 28.0-28.9, adult; Z91.81 History of falling
CPT/HCPCS: 36415; 71045; 74177; 80053; 81001; 82977; 83880; 84075; 84439; 84443; 84484; 85025; 87086; 93005; 94640; 96360; 96361; J7030; J7620; J7626; Q9967; 97535; 99285-25

== ENCOUNTER → 2020-05-07 | Outpatient (CLI) | payer MEDICARE, MEDICAID ==
[2020-04-10 15:08] VITALS: BP 165/72
[~2020-05-07] MED LIST changes: +AMLO-186 PO; -AMLO5TAB10 PO; +DILT180C29 PO; +LEVO50TA PO; +LEVO50TA5 PO; +LEVO88TA4 PO; +LISI-130 PO; +LISI10TA2 PO; +MELA3TAB4 PO; +METO-239 PO; +METO50CA PO; -PANT40TA5 PO; +PANT40TA77 PO; +POLY17PO28 PO; +TRAZ-123 PO; -TRAZ-86 PO
--- NOTE | 2020-05-09 08:39 | SLEEP ---
DATE OF STUDY: 05/07/2020 HOME SLEEP STUDY The patient is 74 years old who weighs 183 pounds with a BMI of 32.4. The patient's [place] score was 12. The patient underwent home sleep study performed at [facility]. Total recording time was 520 minutes. During the night study, the patient had 97 obstructive apneas, no mixed or central apnea and 15 hypopneas. The patient's AHI was 13 per hour. Nocturnal oximetry study revealed that 412 minutes were spent with oxygen saturation of less than 90%. Lowest saturation was 73%. ASSESSMENT: 1. Mild obstructive sleep apnea at an AHI of 13 per hour. 2. Nocturnal hypoxia secondary to obstructive sleep apnea and suspected hypoventilation. RECOMMENDATIONS: 1. The patient is clinically symptomatic with an [place] score of 12. The patient has nocturnal hypoxia as well. The patient would benefit from treatment of sleep apnea with CPAP. Alternatively, oral appliance can be considered. 2. Once the patient is optimally treated, then follow up in 4-6 weeks to assess compliance and to document clinical improvement. 3. Weight loss is advised. 4. Avoid [employer] depressants. 5. Cautioned regarding driving until symptoms of sleep apnea resolve with above recommendations. OSMAN FIGUEROA MD DR: DANIEL/irais JOB#: [id number] / [id number] Deirdre Fowler MD
== END ==
LOC: RT 11:09
PROVIDERS: ATTEND Family Medicine
DX: G47.33 Obstructive sleep apnea (adult) (pediatric) (principal); G47.36 Sleep related hypoventilation in conditions classified elsewhere
CPT/HCPCS: G0399

== ENCOUNTER 2020-05-08 10:28 | Inpatient (IN) | payer MEDICARE, MEDICAID ==
[~2020-05-08] VITALS: Ht 160 cm; Wt 84.5 kg
[~2020-05-08 10:28] MED LIST changes: -LEVO50TA5 PO; -LISI10TA2 PO; -MELA3TAB4 PO; -METO50CA PO; -POLY17PO28 PO; +POLY17PO52 PO
--- NOTE | 2020-05-08 11:03 | ED.ADGEN ---
Past Medical History Past Medical History: Anxiety, Asthma, COPD, Depression, GERD, Hypertension, Other Additional Past Medical Histor: thyroid issue, SLEEP APNEA Past Surgical History: Appendectomy, Cholecystectomy, Knee Replacement Additional Past Surgical Histo: left rotator cuff X 3,hernia,OVARIAN CYSTS REMOVED, L ANKLE HARDWARE, CATAR Smoking Status: Never Smoker Alcohol Use: Sober Drug Use: None General Adult EDM: Chief Complaint: TRAUMA ALERT HPI: HPI: Patient is a 74-year-old female who arrives by private vehicle after falling outside of the emergency department. Patient reports she was returning some equipment related to a sleep study. Patient reports the wind caught her passenger door and knocked her over. The patient reports that she already has weak lower extremities which is chronic for her. She states she was knocked backwards and struck her head. Patient states she has mild headache however the worst pain she is experienced is of her right hip. She has considerable pain with any movement/manipulation of the hip. She denies any prodromal symptoms prior to falling. She further denies any change in her level of consciousness, chest pain or shortness of air since falling. She is awake, alert and uncomfortable appearing. Review of Systems: Review of Systems: Constitutional: Denies fever or chills. [] Eyes: Denies change in visual acuity. [] HENT: Denies nasal congestion or sore throat. [] Respiratory: Denies cough or shortness of breath. [] Cardiovascular: Denies chest pain or edema. [] GI: Denies abdominal pain, nausea, vomiting, bloody stools or diarrhea. [] : Denies dysuria. [] Musculoskeletal: Reports right hip pain. Denies back pain. [] Integument: Denies rash. [] Neurologic: Reports headache, focal weakness or sensory changes. [] Endocrine: Denies polyuria or polydipsia. [] Lymphatic: Denies swollen glands. [] Psychiatric: Denies depression or anxiety. [] Family History: Family History: Noncontributory Current Medications: Current Medications Medications (Trade) Dose Ordered Sig/James Start Time Stop Time Status Last Admin Dose Admin Morphine Sulfate (Morphine Sulfate) 4 mg 1X ONCE 05/08/20 11:15 05/08/20 11:16 DC 05/08/20 11:39 4 MG Ondansetron HCl (Zofran) 4 mg 1X ONCE 05/08/20 11:15 05/08/20 11:16 DC 05/08/20 11:39 4 MG Allergies: Allergies: Allergies Coded Allergies Type Severity Reaction Last Updated Verified Sulfa (Sulfonamide Antibiotics) Allergy Intermediate 03/10/15 Yes hydrochlorothiazide Allergy Intermediate 09/08/17 Yes Physical Exam: PE: Constitutional: Well developed, well nourished, no acute distress, non-toxic appearance. [] HENT: Normocephalic, atraumatic, bilateral external ears normal, oropharynx moist, no oral exudates, nose normal. [] Eyes: PERRLA, EOMI, conjunctiva normal, no discharge. [] Neck: Normal range of motion, no tenderness, supple, no stridor. [] Cardiovascular:Heart rate regular rhythm, no murmur [] Lungs & Thorax: Bilateral breath sounds clear to auscultation [] Abdomen: Bowel sounds normal, soft, no tenderness, no masses, no pulsatile masses. [] Skin: Warm, dry, no erythema, no rash. [] Back: No tenderness, no CVA tenderness. [] Extremities: Patient has considerable pain with palpation of the right hip. This is exacerbated with any range of motion testing. There is external rotation but I do not appreciate any significant shortening. No cyanosis, no clubbing, no edema. [] Neurologic: Alert and oriented X 3, normal motor function, normal sensory function, no focal deficits noted. [] Psychologic: Affect normal, judgement normal, mood normal. [] Current Patient Data: Labs: Laboratory Tests Test 05/08/20 10:45 White Blood Count 9.7 x10^3/uL (4.0-11.0) Red Blood Count 4.61 x10^6/uL (3.50-5.40) Hemoglobin 12.9 g/dL (12.0-15.5) Hematocrit 39.4 % (36.0-47.0) Mean Corpuscular Volume 85 fL (79-100) Mean Corpuscular Hemoglobin 28 pg (25-35) Mean Corpuscular Hemoglobin Concent 33 g/dL (31-37) Red Cell Distribution Width 14.0 % (11.5-14.5) Platelet Count 221 x10^3/uL (140-400) Sodium Level 130 mmol/L (136-145) L Potassium Level 5.3 mmol/L (3.5-5.1) H Chloride Level 95 mmol/L (98-107) L Carbon Dioxide Level 28 mmol/L (21-32) Anion Gap 7 (6-14) Blood Urea Nitrogen 11 mg/dL (7-20) Creatinine 0.6 mg/dL (0.6-1.0) Estimated GFR (Cockcroft-Gault) 97.7 BUN/Creatinine Ratio 18 (6-20) Glucose Level 77 mg/dL (70-99) Calcium Level 8.8 mg/dL (8.5-10.1) Total Bilirubin 0.6 mg/dL (0.2-1.0) Aspartate Amino Transferase (AST) 39 U/L (15-37) H Alanine Aminotransferase (ALT) 43 U/L (14-59) Alkaline Phosphatase 227 U/L (46-116) H Total Protein 6.2 g/dL (6.4-8.2) L Albumin 3.3 g/dL (3.4-5.0) L Albumin/Globulin Ratio 1.1 (1.0-1.7) Laboratory Tests 05/08/20 10:45 Laboratory Tests 05/08/20 10:45 Vital Signs: Vital Signs Date Time Temp Pulse Resp B/P (MAP) Pulse Ox O2 Delivery O2 Flow Rate FiO2 05/08/20 11:39 16 96 Room Air 05/08/20 11:37 57 152/89 (110) 05/08/20 10:30 97.7 97.7 EKG: EKG: [] EKG was obtained at 1035 hrs. which revealed a normal sinus rhythm with a ventricular rate of 62 bpm. There is left axis deviation with a left anterior fascicular block. There are no acute ST/T wave changes denoting ischemia. Heart Score: Risk Factors: Risk Factors: DM, Current or recent (<one month) smoker, HTN, HLP, family history of CAD, obesity. Risk Scores: Score 0 - 3: 2.5% MACE over next 6 weeks - Discharge Home Score 4 - 6: 20.3% MACE over next 6 weeks - Admit for Clinical Observation Score 7 - 10: 72.7% MACE over next 6 weeks - Early Invasive Strategies Radiology/Procedures: Radiology/Procedures: [] Impression: [facility] [address] [place], [place] [id number] IMAGING REPORT Signed PATIENT: ALEX RODARTE: [id number] : 1945 LOCATION: ER AGE: 74 SEX: F EXAM STATUS: REG ER ORD. PHYSICIAN: SONALI VASQUEZ DO REASON: Trauma PROCEDURE: CHEST AP ONLY EXAM: Chest, single view. HISTORY: Trauma. COMPARISON: 04/09/2020 FINDINGS: A frontal view of the chest is obtained. There is no infiltrate, pleural effusion or pneumothorax. The heart is normal in size. There is a tortuous thoracic aorta. There is a right shoulder arthroplasty in expected position. There are calcified granulomas. IMPRESSION: No acute pulmonary finding. Electronically signed by: Xochitl Johnson MD (05/08/2020 11:56 AM) [id number] DICTATED and SIGNED BY: XOCHITL JOHNSON MD DATE: 05/08/20 [id number] [place] [id number] IMAGING REPORT Signed PATIENT: ALEX RODARTE: [id number] : 1945 LOCATION: ER AGE: 74 SEX: F EXAM STATUS: REG ER ORD. PHYSICIAN: SONALI VASQUEZ DO REASON: Trauma PROCEDURE: HIP RIGHT 2V WITH PELVIS EXAM: Pelvis and right hip, 3 views. HISTORY: Trauma. COMPARISON: None. FINDINGS: A frontal view the pelvis and 2 views of the right hip are obtained. There is a displaced and comminuted right femoral neck fracture. There is no hip dislocation. There is degenerative change at the visualized lower lumbar levels. There are pelvic fluid was. There are bone islands. IMPRESSION: Displaced right femoral neck fracture. Electronically signed by: Xochitl Johnson MD (05/08/2020 12:04 PM) [id number] DICTATED and SIGNED BY: XOCHITL JOHNSON MD [address] [id number] IMAGING REPORT Signed PATIENT: ALEX RODARTE: [id number] : 1945 LOCATION: ER AGE: 74 SEX: F EXAM STATUS: REG ER ORD. PHYSICIAN: SONALI VASQUEZ DO REASON: Trauma PROCEDURE: CT HEAD AND CERVICAL SPINE WO EXAM: Head and cervical spine CT without contrast. HISTORY: Trauma. TECHNIQUE: Computed tomographic images of the head and cervical spine were obtained without contrast. *One or more of the following individualized dose reduction techniques were utilized for this examination: 1. Automated exposure control. 2. Adjustment of the mA and/or kV according to patient size. 3. Use of iterative reconstruction technique. COMPARISON: 09/08/2017. FINDINGS: Head: There is no hemorrhage. There is no mass effect or midline shift. There is no hydrocephalus. There is cerebral volume loss. There are scattered areas of hypodensity within the cerebral white matter, likely due to chronic small vessel disease. There is evidence of lens surgery. The there is focal mucosal thickening or a small air-fluid level within the posterior sphenoid sinus. The mastoid air cells are clear. There is no suspicious calvarial lesion. Cervical spine: There is mild multilevel listhesis, primarily at T2-T3. There is degenerative endplate remodeling with disc space narrowing, osteophytosis and Schmorl's node formation primarily at C4-C5, C5-C6, C6-C7 and T2-T3. There is multilevel facet arthropathy. There is calcified atherosclerotic plaque within the distal left vertebral artery. The lung apices are unremarkable. The combination of degenerative changes results in mild left foraminal stenosis at C3-C4, mild left foraminal stenosis at C4-C5, is mild central canal stenosis at C5-C6. IMPRESSION: 1. No acute intracranial finding or evidence of acute cervical spine trauma. 2. Bilateral cerebral white matter changes, likely due to chronic small vessel disease. 3. Multilevel degenerative change at the cervical and upper thoracic spine, described above. Electronically signed by: Xochitl Johnson MD (05/08/2020 12:11 PM) [id number] DICTATED and SIGNED BY: XOCHITL JOHNSON MD DATE: 05/08/20 [id number] Course & Med Decision Making: Course & Med Decision Making Pertinent Labs and Imaging studies reviewed. (See chart for details) [] Dragon Disclaimer: Dragon Disclaimer: This electronic medical record was generated, in whole or in part, using a voice recognition dictation system. Departure Departure Impression: Primary Impression: Closed right hip fracture Additional Impressions: Closed head injury Hyponatremia Hyperkalemia Disposition: 09 ADMITTED INPT THIS HOSP Admitting Physician: STU Condition: STABLE Referrals: Deirdre QUINTEROS MD (PCP) Problem Qualifiers SONALI VASQUEZ DO May 08, 2020 11:03
[2020-05-08] MEDS ORDERED: MORPHINE SULFATE 4 MG/ML VIAL. IV ONE (11:15)
[2020-05-08] MEDS ORDERED: ONDANSETRON PF 4 MG/2 ML VIAL. IVP ONE (11:15)
[2020-05-08 11:18] LABS: HEMATOCRIT 39.4 % (36.0-47.0); HEMOGLOBIN 12.9 g/dL (12.0-15.5); RED BLOOD COUNT 4.61 x10^6/uL (3.50-5.40); WHITE BLOOD COUNT 9.7 x10^3/uL (4.0-11.0)
[2020-05-08 11:24] LABS: CALCIUM 8.8 mg/dL (8.5-10.1); CREATININE 0.6 mg/dL (0.6-1.0); GFR 97.7; POTASSIUM 5.3 mmol/L (3.5-5.1)
[2020-05-08 11:34] LABS: ALBUMIN 3.3 g/dL (3.4-5.0); ALBUMIN/GLOBULIN RATIO 1.1 (1.0-1.7); TOTAL BILIRUBIN 0.6 mg/dL (0.2-1.0); TOTAL PROTEIN 6.2 g/dL (6.4-8.2)
--- NOTE | 2020-05-08 11:58 | RAD ---
EXAM: Chest, single view. HISTORY: Trauma. COMPARISON: 04/09/2020 FINDINGS: A frontal view of the chest is obtained. There is no infiltrate, pleural effusion or pneumo thorax. The heart is normal in size. There is a tortuous thoracic aorta. There is a right shoulder ar throplasty in expected position. There are calcified granulomas. IMPRESSION: No acute pulmonary finding. Electronically signed by: Xochitl Perdomo MD (05/08/2020 11:56 AM) [id number]
--- NOTE | 2020-05-08 12:06 | RAD ---
EXAM: Pelvis and right hip, 3 views. HISTORY: Trauma. COMPARISON: None. FINDINGS: A frontal view the pelvis and 2 views of the right hip are obtained. There is a displaced a nd comminuted right femoral neck fracture. There is no hip dislocation. There is degenerative change at the visualized lower lumbar levels. There are pelvic fluid was. There are bone islands. IMPRESSION: Displaced right femoral neck fracture. Electronically signed by: Xochitl Perdomo MD (05/08/2020 12:04 PM) [id number]
--- NOTE | 2020-05-08 12:13 | RAD ---
EXAM: Head and cervical spine CT without contrast. HISTORY: Trauma. TECHNIQUE: Computed tomographic images of the head and cervical spine were obtained without contrast. *One or more of the following individualized dose reduction techniques were utilized for this examina tion: 1. Automated exposure control. 2. Adjustment of the mA and/or kV according to patient size. 3. Use of iterative reconstruction technique. COMPARISON: 09/08/2017. FINDINGS: Head: There is no hemorrhage. There is no mass effect or midline shift. There is no hydrocephalus. Th ere is cerebral volume loss. There are scattered areas of hypodensity within the cerebral white matte r, likely due to chronic small vessel disease. There is evidence of lens surgery. The there is focal mucosal thickening or a small air-fluid level within the posterior sphenoid sinus. The mastoid air ce lls are clear. There is no suspicious calvarial lesion. Cervical spine: There is mild multilevel listhesis, primarily at T2-T3. There is degenerative endplat e remodeling with disc space narrowing, osteophytosis and Schmorl's node formation primarily at C4-C5 , C5-C6, C6-C7 and T2-T3. There is multilevel facet arthropathy. There is calcified atherosclerotic p laque within the distal left vertebral artery. The lung apices are unremarkable. The combination of d egenerative changes results in mild left foraminal stenosis at C3-C4, mild left foraminal stenosis at C4-C5, is mild central canal stenosis at C5-C6. IMPRESSION: 1. No acute intracranial finding or evidence of acute cervical spine trauma. 2. Bilateral cerebral white matter changes, likely due to chronic small vessel disease. 3. Multilevel degenerative change at the cervical and upper thoracic spine, described above. Electronically signed by: Xochitl Perdomo MD (05/08/2020 12:11 PM) [id number]
[2020-05-08] MEDS ORDERED: MORPHINE SULFATE 4 MG/ML VIAL. IV PRN (12:30)
[2020-05-08] MEDS ORDERED: ONDANSETRON PF 4 MG/2 ML VIAL. IV PRN (12:30)
[2020-05-08 12:54] LABS: BILIRUBIN,URINE NEGATIVE (NEG); CLARITY,URINE CLEAR; COLOR,URINE YELLOW; NITRITE,URINE NEGATIVE (NEG); PH,URINE 7.5 (<5.0-8.0); PROTEIN,URINE NEGATIVE (NEG-TRACE); UROBILINOGEN,URINE 0.2 mg/dL (0.2 mg/dL)
--- NOTE | 2020-05-08 13:05 | PDOC1 ---
History and Physical Date of Admission Date of Admission DATE: 05/08/20 TIME: 12:54 Identification/Chief Complaint Chief Complaint Fall Source Source: Chart review, Patient History of Present Illness History of Present Illness Patient is a 70-year-old female who presents to the ER after after mechanical fall today. She was reportedly returning equipment from sleep study today, when she had a ground-level fall landing on her right side. She began planing of right hip pain at that time, 02/08. She states she is chronically weak in her lower extremities, and normally ambulates with a walker. She does admit to associated head injury, and is not on blood thinners. Upon arrival in the ER there is obvious deformity and externally rotated right leg. X-ray shows displaced right femoral neck fracture. Will admit patient for further medical management with orthopedic consultation. Past Medical History Cardiovascular: HTN Pulmonary: COPD, Other GI: Diverticulosis, GERD Psych: Anxiety, Depression Musculoskeletal: Osteoarthritis Rheumatologic: Rheumatoid arthritis Endocrine: Hypothyroidism Past Surgical History Past Surgical History: Appendectomy, Cholecystectomy, Cataract Removal, Hernia Repair, Other Family History Family History: Heart Disease, Hypertension Social History Smoke: No ALCOHOL: none Drugs: None Current Problem List Problem List Problems Medical Problems: (1) Closed head injury Status: Acute (2) Closed right hip fracture Status: Acute (3) Hyperkalemia Status: Acute (4) Hyponatremia Status: Acute Current Medications Current Medications Current Medications Morphine Sulfate (Morphine Sulfate) 4 mg 1X ONCE IV Last administered on 05/08/20at 11:39; Start 05/08/20 at 11:15; Stop 05/08/20 at 11:16; Status DC Ondansetron HCl (Zofran) 4 mg 1X ONCE IVP Last administered on 05/08/20at 11:39; Start 05/08/20 at 11:15; Stop 05/08/20 at 11:16; Status DC Ondansetron HCl (Zofran) 4 mg PRN Q8HRS PRN IV NAUSEA/VOMITING; Start 05/08/20 at 12:30; Stop 05/09/20 at 12:29 Morphine Sulfate (Morphine Sulfate) 4 mg PRN Q2HR PRN IV PAIN; Start 05/08/20 at 12:30; Stop 05/09/20 at 12:29 Active Scripts Active Hydroxychloroquine Sulfate 200 Mg Tablet 400 Mg PO DAILY 30 Days Lisinopril 40 Mg Tablet 20 Mg PO DAILY 30 Days Polyethylene Glycol 3350 17 Gm Powd.pack 17 Gm PO DAILY 30 Days Levothyroxine Sodium 88 Mcg Tablet 88 Mcg PO DAILYAC Diclofenac Sodium 50 Mg Tablet. 1 Tab PO BID Reported Cymbalta (Duloxetine Hcl) 60 Mg Capsule. 1 Cap PO DAILY Clonazepam 2 Mg Tablet 2 Mg PO BID Vitamin D3 (Cholecalciferol (Vitamin D3)) 1,000 Unit Tablet 1 Tab PO DAILY Centrum Silver Tablet (Multivits-Min/Fa/Lycopene/Lut) 1 Each Tablet 1 Each PO DAILY LAST DOSE THIS AM NEXT DOSE TOMORROW AM Fish Oil 1,000 Mg Softgel (Elbert-3 Fatty Acids/Fish Oil) 1 Each Capsule 1 Each PO DAILY LAST DOSE THIS AM NEXT DOSE TOMORROW AM Combivent Respimat Inhal (Ipratropium/Albuterol Sulfate) 4 Gm Aer.w.adap 1 Inh IH QID MAY RESUME WHEN AT HOME Pantoprazole Sodium (Pantoprazole Sodium) 40 Mg Tablet. 1 Tab PO DAILY LAST DOSE THIS AM NEXT DOSE TOMORROW AM Albuterol Sulfate Conc Neb Soln (Albuterol Sulfate) 2.5 Mg/0.5 Ml Vial.neb 1 Vial NEB BID LAST DOSE THIS AM NEXT DOSE TONMARIVEL Aspir 81 (Aspirin) 81 Mg Tablet. 81 Mg PO LAST DOSE THIS AM NEXT DOSE TOMOOROW AM Allergies Allergies: Coded Allergies: Sulfa (Sulfonamide Antibiotics) (Verified Allergy, Intermediate, 03/10/15) hydrochlorothiazide (Verified Allergy, Intermediate, 09/08/17) ROS Review of System GENERAL: No history of weight change, weakness or fevers. SKIN: No bruising, hair changes or rashes. EYES: No blurred, double or loss of vision. NOSE AND THROAT: No history of nosebleeds, hoarseness or sore throat. HEART: Denies chest pain, denies palpitations. LUNGS: Denies cough, hemoptysis, wheezing or shortness of breath. GASTROINTESTINAL: Denies nausea, vomiting, abdominal pain. GENITOURINARY: Denies dysuria, frequency, urgency, hematuria. NEUROLOGIC: Denies history of numbness, tingling, tremor or weakness. PSYCHIATRIC: Denies anxiety, denies depression. ENDOCRINE: No history of heat or cold intolerance, polyuria or polydipsia. EXTREMITIES: Right hip pain. Physical Exam Physical Exam General: Alert, Oriented X3, Cooperative, moderate distress HEENT: PERRLA, EOMI Lungs: Clear to auscultation, Normal air movement Heart: RRR, no murmurs Cardiovascular: S1, S2 Abdomen: Normal bowel sounds, Soft, No tenderness Extremities: Shortened and externally rotated right leg. No clubbing, No cyanosis. Skin: No rashes, No significant lesion Neuro: Normal speech, Normal tone, Sensation intact Psych/Mental Status: Mental status NL, Mood NL Vitals Vitals Vital Signs Date Time Temp Pulse Resp B/P (MAP) Pulse Ox O2 Delivery O2 Flow Rate FiO2 05/08/20 11:39 16 96 Room Air 05/08/20 11:37 57 152/89 (110) 05/08/20 10:30 97.7 97.7 Labs Labs Laboratory Tests Test 05/08/20 10:45 White Blood Count 9.7 x10^3/uL (4.0-11.0) Red Blood Count 4.61 x10^6/uL (3.50-5.40) Hemoglobin 12.9 g/dL (12.0-15.5) Hematocrit 39.4 % (36.0-47.0) Mean Corpuscular Volume 85 fL (79-100) Mean Corpuscular Hemoglobin 28 pg (25-35) Mean Corpuscular Hemoglobin Concent 33 g/dL (31-37) Red Cell Distribution Width 14.0 % (11.5-14.5) Platelet Count 221 x10^3/uL (140-400) Sodium Level 130 mmol/L (136-145) Potassium Level 5.3 mmol/L (3.5-5.1) Chloride Level 95 mmol/L (98-107) Carbon Dioxide Level 28 mmol/L (21-32) Anion Gap 7 (6-14) Blood Urea Nitrogen 11 mg/dL (7-20) Creatinine 0.6 mg/dL (0.6-1.0) Estimated GFR (Cockcroft-Gault) 97.7 BUN/Creatinine Ratio 18 (6-20) Glucose Level 77 mg/dL (70-99) Calcium Level 8.8 mg/dL (8.5-10.1) Total Bilirubin 0.6 mg/dL (0.2-1.0) Aspartate Amino Transf (AST/SGOT) 39 U/L (15-37) Alanine Aminotransferase (ALT/SGPT) 43 U/L (14-59) Alkaline Phosphatase 227 U/L (46-116) Total Protein 6.2 g/dL (6.4-8.2) Albumin 3.3 g/dL (3.4-5.0) Albumin/Globulin Ratio 1.1 (1.0-1.7) Laboratory Tests Test 05/08/20 10:45 White Blood Count 9.7 x10^3/uL (4.0-11.0) Red Blood Count 4.61 x10^6/uL (3.50-5.40) Hemoglobin 12.9 g/dL (12.0-15.5) Hematocrit 39.4 % (36.0-47.0) Mean Corpuscular Volume 85 fL (79-100) Mean Corpuscular Hemoglobin 28 pg (25-35) Mean Corpuscular Hemoglobin Concent 33 g/dL (31-37) Red Cell Distribution Width 14.0 % (11.5-14.5) Platelet Count 221 x10^3/uL (140-400) Sodium Level 130 mmol/L (136-145) Potassium Level 5.3 mmol/L (3.5-5.1) Chloride Level 95 mmol/L (98-107) Carbon Dioxide Level 28 mmol/L (21-32) Anion Gap 7 (6-14) Blood Urea Nitrogen 11 mg/dL (7-20) Creatinine 0.6 mg/dL (0.6-1.0) Estimated GFR (Cockcroft-Gault) 97.7 BUN/Creatinine Ratio 18 (6-20) Glucose Level 77 mg/dL (70-99) Calcium Level 8.8 mg/dL (8.5-10.1) Total Bilirubin 0.6 mg/dL (0.2-1.0) Aspartate Amino Transf (AST/SGOT) 39 U/L (15-37) Alanine Aminotransferase (ALT/SGPT) 43 U/L (14-59) Alkaline Phosphatase 227 U/L (46-116) Total Protein 6.2 g/dL (6.4-8.2) Albumin 3.3 g/dL (3.4-5.0) Albumin/Globulin Ratio 1.1 (1.0-1.7) Images Images EXAM: Pelvis and right hip, 3 views. HISTORY: Trauma. COMPARISON: None. FINDINGS: A frontal view the pelvis and 2 views of the right hip are obtained. There is a displaced and comminuted right femoral neck fracture. There is no hip dislocation. There is degenerative change at the visualized lower lumbar levels. There are pelvic fluid was. There are bone islands. IMPRESSION: Displaced right femoral neck fracture. EXAM: Head and cervical spine CT without contrast. HISTORY: Trauma. TECHNIQUE: Computed tomographic images of the head and cervical spine were obtained without contrast. *One or more of the following individualized dose reduction techniques were utilized for this examination: 1. Automated exposure control. 2. Adjustment of the mA and/or kV according to patient size. 3. Use of iterative reconstruction technique. COMPARISON: 09/08/2017. FINDINGS: Head: There is no hemorrhage. There is no mass effect or midline shift. There is no hydrocephalus. There is cerebral volume loss. There are scattered areas of hypodensity within the cerebral white matter, likely due to chronic small vessel disease. There is evidence of lens surgery. The there is focal mucosal thickening or a small air-fluid level within the posterior sphenoid sinus. The mastoid air cells are clear. There is no suspicious calvarial lesion. Cervical spine: There is mild multilevel listhesis, primarily at T2-T3. There is degenerative endplate remodeling with disc space narrowing, osteophytosis and Schmorl's node formation primarily at C4-C5, C5-C6, C6-C7 and T2-T3. There is multilevel facet arthropathy. There is calcified atherosclerotic plaque within the distal left vertebral artery. The lung apices are unremarkable. The combination of degenerative changes results in mild left foraminal stenosis at C3-C4, mild left foraminal stenosis at C4-C5, is mild central canal stenosis at C5-C6. IMPRESSION: 1. No acute intracranial finding or evidence of acute cervical spine trauma. 2. Bilateral cerebral white matter changes, likely due to chronic small vessel disease. 3. Multilevel degenerative change at the cervical and upper thoracic spine, de scribed above. VTE Prophylaxis Ordered VTE Prophylaxis Devices: No VTE Pharmacological Prophylaxi: Yes Assessment/Plan Assessment/Plan Right femoral neck fracture Closed head injury Hyponatremia Hyperkalemia Plan: Consultations been placed orthopedic surgery Anticipate she would likely have surgery tomorrow Pain management Zofran as needed Resume home medications PT/OT FEN - Cardiac diet PPX - Heparin FULL CODE Dispo - inpatient for above Justifications for Admission Other Justification ELIZABETH MOORE MD May 08, 2020 13:05
[2020-05-08 13:09] LABS: AMORPHOUS SEDIMENT,UR PRESENT /HPF; BACTERIA,URINE 0 /HPF (0-FEW); WBC,URINE 0 /HPF (0-4)
[2020-05-08] MEDS ORDERED: MAG HYDROX/ALUMINUM HYD/SIMETH 30 ML ORAL.SUSP PO PRN (13:15)
[2020-05-08] MEDS ORDERED: MORPHINE SULFATE 2 MG/ML VIAL. IV PRN (13:15)
[2020-05-08] MEDS ORDERED: ACETAMINOPHEN 325 MG TABLET. PO PRN (13:15)
[2020-05-08] MEDS ORDERED: CALCIUM CARBONATE 500 MG TAB.CHEW PO PRN (13:15)
[2020-05-08] MEDS ORDERED: fentaNYL PF VIAL 100 MCG/2 ML VIAL IVP PRN (13:15)
[2020-05-08] MEDS ORDERED: ONDANSETRON PF 4 MG/2 ML VIAL. IVP PRN (13:15)
[2020-05-08] MEDS ORDERED: BISACODYL 10 MG SUPP.RECT. PR PRN (13:15)
[2020-05-08] MEDS ORDERED: MAGNESIUM HYDROXIDE 2,400 MG/30 ML ORAL.SUSP. PO PRN (13:15)
[2020-05-08] MEDS ORDERED: ZOLPIDEM 5 MG TABLET. PO PRN (13:15)
[2020-05-08] MEDS ORDERED: HEPARIN for SUB-Q USE 5,000 UNIT/ML VIAL. SQ SCH (14:00)
[2020-05-08 15:00] VITALS: BP 162/61
[2020-05-08] MEDS ORDERED: MELA3TAB4 PO (15:05)
[2020-05-08] MEDS ORDERED: LEVO50TA5 PO (15:05)
[2020-05-08] MEDS ORDERED: MELO7.5T29 PO (15:05)
[2020-05-08] MEDS ORDERED: LISI10TA16 PO (15:05)
[2020-05-08] MEDS ORDERED: METO50CA PO (15:05)
[2020-05-08] MEDS: MORPHINE SULFATE 4 MG/ML VIAL. IV PRN ×2 (15:09→20:40)
--- NOTE | 2020-05-08 16:01 | PDOC2 ---
CONSULT Date of Consult Date of Consult DATE: 05/08/20 TIME: 15:58 Reason for Consult Reason for Consult: Right hip fracture Identification/Chief Complaint Chief Complaint Right hip pain after a fall Source Source: Chart review, Patient History of Present Illness Reason for Visit: Patient is a 70-year-old female who was admitted via the ER after a mechanical fall the day of admission. She was reportedly returning equipment from sleep study, when she had a ground-level fall landing on her right side. She began complaining of right hip pain at that time, 02/08. She states she is chr onically weak in her lower extremities, and normally ambulates with a walker. She does admit to associated head injury, and is not on blood thinners. Upon arrival in the ER there was obvious deformity and externally rotated right leg. X-ray shows displaced right femoral neck fracture. The patient was admitted to the hospitalist, and orthopedics was consulted. Past Medical History Cardiovascular: HTN Pulmonary: COPD, Other GI: Diverticulosis, GERD Psych: Anxiety, Depression Musculoskeletal: Osteoarthritis Rheumatologic: Rheumatoid arthritis Endocrine: Hypothyroidism Past Surgical History Past Surgical History: Appendectomy, Cholecystectomy, Cataract Removal, Hernia Repair, Other Family History Family History: Heart Disease, Hypertension Social History No ALCOHOL: none Drugs: None Lives: Long-Term Current Problem List Problem List Problems Medical Problems: (1) Closed head injury Status: Acute (2) Closed right hip fracture Status: Acute (3) Hyperkalemia Status: Acute (4) Hyponatremia Status: Acute Current Medications Current Medications Current Medications Morphine Sulfate (Morphine Sulfate) 4 mg 1X ONCE IV Last administered on 05/08/20at 11:39; Start 05/08/20 at 11:15; Stop 05/08/20 at 11:16; Status DC Ondansetron HCl (Zofran) 4 mg 1X ONCE IVP Last administered on 05/08/20at 11:39; Start 05/08/20 at 11:15; Stop 05/08/20 at 11:16; Status DC Ondansetron HCl (Zofran) 4 mg PRN Q8HRS PRN IV NAUSEA/VOMITING; Start 05/08/20 at 12:30; Stop 05/09/20 at 12:29; Status Cancel Morphine Sulfate (Morphine Sulfate) 4 mg PRN Q2HR PRN IV PAIN; Start 05/08/20 at 12:30; Stop 05/09/20 at 12:29; Status Cancel Morphine Sulfate (Morphine Sulfate) 4 mg PRN Q2HR PRN IV PAIN Last administered on 05/08/20at 15:09; Start 05/08/20 at 13:15 Fentanyl Citrate (Fentanyl 2ml Vial) 50 mcg PRN Q2HR PRN IVP PAIN; Start at 13:15 Ondansetron HCl (Zofran) 4 mg PRN Q6HRS PRN IVP NAUSEA/VOMITING; Start 05/08/20 at 13:15 Al Hydroxide/Mg Hydroxide (Mylanta Plus Xs) 30 ml PRN Q3HRS PRN PO HEARTBURN / GAS; Start 05/08/20 at 13:15 Calcium Carbonate/ Glycine (Tums) 500 mg PRN Q3HRS PRN PO UPSET STOMACH; Start 05/08/20 at 13:15 Zolpidem Tartrate (Ambien) 5 mg PRN QHS PRN PO INSOMNIA, MAY REPEAT IN 1HR; Start 05/08/20 at 13:15 Morphine Sulfate (Morphine Sulfate) 2 mg PRN Q1HR PRN IV PAIN; Start 05/08/20 at 13:15 Acetaminophen (Tylenol) 650 mg PRN Q6HRS PRN PO Headaches, Temp > 101.5F; Start 05/08/20 at 13:15 Magnesium Hydroxide (Milk Of Magnesia) 2,400 mg PRN Q12HR PRN PO CONSTIPATION; Start 05/08/20 at 13:15 Bisacodyl (Dulcolax Supp) 10 mg PRN DAILY PRN [place] CONSTIPATION; Start 05/08/20 at 13:15 Heparin Sodium (Porcine) (Heparin Sodium) 5,000 unit Q8HRS SQ Last administered on 05/08/20at 15:17; Start 05/08/20 at 14:00 Aspirin (Ecotrin) 81 mg DAILY PO ; Start 05/09/20 at 09:00 Levothyroxine Sodium (Synthroid) 50 mcg DAILY07 PO ; Start 05/09/20 at 07:00 Lisinopril (Prinivil) 10 mg DAILY PO ; Start 05/09/20 at 09:00 Polyethylene Glycol (miraLAX PACKET) 17 gm DAILY PO ; Start 05/09/20 at 09:00 Albuterol Sulfate (Ventolin Neb Soln) 2.5 mg RTBID NEB ; Start 05/08/20 at 20:00 Clonazepam (KlonoPIN) 2 mg BID PO ; Start 05/08/20 at 21:00 Duloxetine HCl (Cymbalta) 60 mg DAILY PO ; Start 05/09/20 at 09:00 Metoprolol Succinate (Toprol Xl) 50 mg DAILY PO ; Start 05/09/20 at 09:00 Active Scripts Active Hydroxychloroquine Sulfate 200 Mg Tablet 400 Mg PO DAILY 30 Days Polyethylene Glycol 3350 17 Gm Powd.pack 17 Gm PO DAILY 30 Days Diclofenac Sodium 50 Mg Tablet. 1 Tab PO BID Reported Melatonin 3 Mg Tablet 1 Tab PO QHS Kapspargo Sprinkle (Metoprolol Succinate) 50 Mg Cap.spr.24 50 Mg PO DAILY Meloxicam 7.5 Mg Tablet 1 Tab PO DAILY Lisinopril 10 Mg Tablet 1 Tab PO DAILY Levothyroxine Sodium 50 Mcg Tablet 1 Tab PO DAILY Cymbalta (Duloxetine Hcl) 60 Mg Capsule. 1 Cap PO DAILY Clonazepam 2 Mg Tablet 2 Mg PO BID Vitamin D3 (Cholecalciferol (Vitamin D3)) 1,000 Unit Tablet 1 Tab PO DAILY Centrum Silver Tablet (Multivits-Min/Fa/Lycopene/Lut) 1 Each Tablet 1 Each PO DAILY LAST DOSE THIS AM NEXT DOSE TOMORROW AM Fish Oil 1,000 Mg Softgel ([place]-3 Fatty Acids/Fish Oil) 1 Each Capsule 1 Each PO DAILY LAST DOSE THIS AM NEXT DOSE TOMORROW AM Combivent Respimat Inhal (Ipratropium/Albuterol Sulfate) 4 Gm Aer.w.adap 1 Inh IH QID MAY RESUME WHEN AT HOME Pantoprazole Sodium (Pantoprazole Sodium) 40 Mg Tablet. 1 Tab PO DAILY LAST DOSE THIS AM NEXT DOSE TOMORROW AM Albuterol Sulfate Conc Neb Soln (Albuterol Sulfate) 2.5 Mg/0.5 Ml Vial.julius 1 Vial NEB BID LAST DOSE THIS AM NEXT DOSE PILI Aspir 81 (Aspirin) 81 Mg Tablet. 81 Mg PO LAST DOSE THIS AM NEXT DOSE TOMOOROW AM Allergies Allergies: Coded Allergies: Sulfa (Sulfonamide Antibiotics) (Verified Allergy, Intermediate, 03/10/15) hydrochlorothiazide (Verified Allergy, Intermediate, 09/08/17) ROS Review of System GENERAL: No history of weight change, weakness or fevers. SKIN: No bruising, hair changes or rashes. EYES: No blurred, double or loss of vision. NOSE AND THROAT: No history of nosebleeds, hoarseness or sore throat. HEART: Denies chest pain, denies palpitations. LUNGS: Denies cough, hemoptysis, wheezing or shortness of breath. GASTROINTESTINAL: Denies nausea, vomiting, abdominal pain. GENITOURINARY: Denies dysuria, frequency, urgency, hematuria. NEUROLOGIC: Denies history of numbness, tingling, tremor or weakness. PSYCHIATRIC: Denies anxiety, denies depression. ENDOCRINE: No history of heat or cold intolerance, polyuria or polydipsia. EXTREMITIES: Right hip pain. Vitals VITALS Vital Signs Date Time Temp Pulse Resp B/P (MAP) Pulse Ox O2 Delivery O2 Flow Rate FiO2 05/08/20 15:09 Room Air 05/08/20 14:28 95 05/08/20 13:22 54 148/69 (95) 05/08/20 11:39 16 05/08/20 10:30 97.7 97.7 Labs Labs Laboratory Tests Test 05/08/20 10:45 05/08/20 12:45 White Blood Count 9.7 x10^3/uL (4.0-11.0) Red Blood Count 4.61 x10^6/uL (3.50-5.40) Hemoglobin 12.9 g/dL (12.0-15.5) Hematocrit 39.4 % (36.0-47.0) Mean Corpuscular Volume 85 fL (79-100) Mean Corpuscular Hemoglobin 28 pg (25-35) Mean Corpuscular Hemoglobin Concent 33 g/dL (31-37) Red Cell Distribution Width 14.0 % (11.5-14.5) Platelet Count 221 x10^3/uL (140-400) Sodium Level 130 mmol/L (136-145) Potassium Level 5.3 mmol/L (3.5-5.1) Chloride Level 95 mmol/L (98-107) Carbon Dioxide Level 28 mmol/L (21-32) Anion Gap 7 (6-14) Blood Urea Nitrogen 11 mg/dL (7-20) Creatinine 0.6 mg/dL (0.6-1.0) Estimated GFR (Cockcroft-Gault) 97.7 BUN/Creatinine Ratio 18 (6-20) Glucose Level 77 mg/dL (70-99) Calcium Level 8.8 mg/dL (8.5-10.1) Total Bilirubin 0.6 mg/dL (0.2-1.0) Aspartate Amino Transf (AST/SGOT) 39 U/L (15-37) Alanine Aminotransferase (ALT/SGPT) 43 U/L (14-59) Alkaline Phosphatase 227 U/L (46-116) Total Protein 6.2 g/dL (6.4-8.2) Albumin 3.3 g/dL (3.4-5.0) Albumin/Globulin Ratio 1.1 (1.0-1.7) Urine Collection Type Unknown Urine Color Yellow Urine Clarity Clear Urine pH 7.5 (<5.0-8.0) Urine Specific [place] 1.010 (1.000-1.030) Urine Protein Negative mg/dL (NEG-TRACE) Urine Glucose (UA) Negative mg/dL (NEG) Urine Ketones (Stick) Negative mg/dL (NEG) Urine Blood Negative (NEG) Urine Nitrite Negative (NEG) Urine Bilirubin Negative (NEG) Urine Urobilinogen Dipstick 0.2 mg/dL (0.2 mg/dL) Urine Leukocyte Esterase Negative (NEG) Urine RBC 6-10 /HPF (0-2) Urine WBC 0 /HPF (0-4) Urine Amorphous Sediment Present /HPF Urine Bacteria 0 /HPF (0-FEW) SARS-CoV-2 Antigen (Rapid) Negative (NEGATIVE) Laboratory Tests Test 05/08/20 10:45 05/08/20 12:45 White Blood Count 9.7 x10^3/uL (4.0-11.0) Red Blood Count 4.61 x10^6/uL (3.50-5.40) Hemoglobin 12.9 g/dL (12.0-15.5) Hematocrit 39.4 % (36.0-47.0) Mean Corpuscular Volume 85 fL (79-100) Mean Corpuscular Hemoglobin 28 pg (25-35) Mean Corpuscular Hemoglobin Concent 33 g/dL (31-37) Red Cell Distribution Width 14.0 % (11.5-14.5) Platelet Count 221 x10^3/uL (140-400) Sodium Level 130 mmol/L (136-145) Potassium Level 5.3 mmol/L (3.5-5.1) Chloride Level 95 mmol/L (98-107) Carbon Dioxide Level 28 mmol/L (21-32) Anion Gap 7 (6-14) Blood Urea Nitrogen 11 mg/dL (7-20) Creatinine 0.6 mg/dL (0.6-1.0) Estimated GFR (Cockcroft-Gault) 97.7 BUN/Creatinine Ratio 18 (6-20) Glucose Level 77 mg/dL (70-99) Calcium Level 8.8 mg/dL (8.5-10.1) Total Bilirubin 0.6 mg/dL (0.2-1.0) Aspartate Amino Transf (AST/SGOT) 39 U/L (15-37) Alanine Aminotransferase (ALT/SGPT) 43 U/L (14-59) Alkaline Phosphatase 227 U/L (46-116) Total Protein 6.2 g/dL (6.4-8.2) Albumin 3.3 g/dL (3.4-5.0) Albumin/Globulin Ratio 1.1 (1.0-1.7) Urine Collection Type Unknown Urine Color Yellow Urine Clarity Clear Urine pH 7.5 (<5.0-8.0) Urine Specific [place] 1.010 (1.000-1.030) Urine Protein Negative mg/dL (NEG-TRACE) Urine Glucose (UA) Negative mg/dL (NEG) Urine Ketones (Stick) Negative mg/dL (NEG) Urine Blood Negative (NEG) Urine Nitrite Negative (NEG) Urine Bilirubin Negative (NEG) Urine Urobilinogen Dipstick 0.2 mg/dL (0.2 mg/dL) Urine Leukocyte Esterase Negative (NEG) Urine RBC 6-10 /HPF (0-2) Urine WBC 0 /HPF (0-4) Urine Amorphous Sediment Present /HPF Urine Bacteria 0 /HPF (0-FEW) SARS-CoV-2 Antigen (Rapid) Negative (NEGATIVE) Images Images Report reviewed, images independently reviewed. Basicervical femoral neck fracture, extracapsular, so treatment is similar to intertrochanteric fracture. There is intertrochanteric extension of the fracture. [facility] [address] [place], [place] [id number] IMAGING REPORT Signed PATIENT: SHYANNE RODARTE ACCOUNT: [id number] : 1945 LOCATION: ER AGE: 74 SEX: F EXAM STATUS: REG ER ORD. PHYSICIAN: SONALI VASQUEZ DO REASON: Trauma PROCEDURE: HIP RIGHT 2V WITH PELVIS EXAM: Pelvis and right hip, 3 views. HISTORY: Trauma. COMPARISON: None. FINDINGS: A frontal view the pelvis and 2 views of the right hip are obtained. There is a displaced and comminuted right femoral neck fracture. There is no hip dislocation. There is degenerative change at the visualized lower lumbar levels. There are pelvic fluid was. There are bone islands. IMPRESSION: Displaced right femoral neck fracture. Electronically signed by: Xochitl Johnson MD (05/08/2020 12:04 PM) [id number] DICTATED and SIGNED BY: XOCHITL JOHNSON MD DATE: 05/08/20 1203 Assessment/Plan Assessment/Plan Plan for surgery on 05/09/2020. I will plan intramedullary nail for this fracture due to the fracture configuration. We discussed operative versus nonoperative management. I recommend surgery. The alternative to surgery is bedrest which is generally not well tolerated and has high risks of continued pain, bedsores, pneumonia, and blood clots. Surgery is likely safer than nonoperative treatment. Risks of intramedullary nailing would include malunion, nonunion or hardware failure requiring additional surgery, bleeding, blood clots, neurovascular injury, or other potential surgical or anesthetic complications. All of her questions about surgery were answered and she desires to proceed. JORGE LUIS PLATA MD May 08, 2020 16:00
[2020-05-08] MEDS: IV NORMAL SALINE 1000ML BAG 1,000 ML IV SCH (17:19)
[2020-05-08 19:00] VITALS: BP 127/58
[2020-05-08] MEDS: ALBUTEROL SULFATE 2.5 MG/3 ML NEBU. NEB SCH (20:00)
[2020-05-08] MEDS: clonazePAM 0.5 MG TABLET PO SCH (20:39)
[2020-05-08 23:00] VITALS: BP 101/59
[2020-05-09] VITALS (9 sets, daily range): BP systolic 84–123; BP diastolic 42–62
[2020-05-09] MEDS: IV NORMAL SALINE 1000ML BAG 1,000 ML IV SCH ×2 (04:36→12:15)
[2020-05-09] MEDS: LEVOTHYROXINE 50 MCG TABLET PO SCH (05:51)
[2020-05-09] MEDS ORDERED: ROPIVacaine 0.75% PF 53.3 ML, EPINEPHrine 0.6 MG, MORPHINE PF 5 MG in IV NORMAL SALINE ... INT ART ONE (06:00)
[2020-05-09 07:55] LABS: PROTHROMBIN TIME PATIENT 14.1 SEC (11.7-14.0)
[2020-05-09] MEDS: ALBUTEROL SULFATE 2.5 MG/3 ML NEBU. NEB SCH ×2 (08:00→20:00)
[2020-05-09 08:02] LABS: CREATININE 0.5 mg/dL (0.6-1.0); GFR 120.6; POTASSIUM 4.2 mmol/L (3.5-5.1)
[2020-05-09] MEDS: METOPROLOL SUCC 24HR ER 50 MG TAB.ER.24H. PO SCH (09:00)
[2020-05-09] MEDS ORDERED: ASPIRIN ENTERIC COATED 81 MG TABLET.DR. PO SCH (09:00)
[2020-05-09] MEDS: LISINOPRIL 10 MG TABLET PO SCH (09:00)
[2020-05-09] MEDS: MORPHINE SULFATE 4 MG/ML VIAL. IV PRN (10:11)
[2020-05-09] MEDS ORDERED: SEVOFLURANE 61 TO 120 MINUTES. IH ONE (11:37)
[2020-05-09] MEDS ORDERED: DEXAMETHASONE SOD PHOS 4 MG/ML VIAL ONE (11:38)
[2020-05-09] MEDS ORDERED: PROPOFOL 10 MG/ML (20ML) VIAL. IV ONE (11:38)
[2020-05-09] MEDS ORDERED: LIDOCAINE 2% PF 5 ML VIAL. ONE (11:38)
[2020-05-09] MEDS ORDERED: PHENYLEPHRINE 10 MG/ML VIAL. ONE (11:38)
[2020-05-09] MEDS ORDERED: ONDANSETRON PF 4 MG/2 ML VIAL. ONE (11:38)
[2020-05-09] MEDS ORDERED: TRANEXAMIC ACID 1,000 MG in IV NORMAL SALINE 50ML 50 ML INJ ONE ×2 (12:30→14:30)
--- NOTE | 2020-05-09 12:42 | NUR ---
SW following for discharge planning. Spoke with RN and reviewed chart. SW met with pt. Pt stated she resides in [facility] alone. Pt stated her children help as needed and that her spouse is . Pt stated she is current with [facility] and would like resumption of on discharge. СВЕТЛАНА spoke with Beata from [facility] to coordinate care. Pt stated no home . Pt currently on 2l . Pt on a regular diet and PT/OT will evaluate. SW following. Addendum: 05/12/20 at 1137 by CANDACE SOTOMAYOR Pt transferred to . No further needs from this СВЕТЛАНА.
--- NOTE | 2020-05-09 13:14 | PDOC4 ---
Operative Note Operative Note Date of Procedure: May 09, 2020 Pre-Op Diagnosis: Displaced fracture of base of neck of right femur, initial encounter for closed fracture ICD-10 S72.041A Post-Op Diagnosis: same Procedure: right hip treatment of base of femoral neck fracture (variant of intertrochanteric fracture) with intramedullary implant, with interlocking screws, CPT 92654 Surgeon: Jorge Luis Plata MD Desktop Engineer: JUSTUS Magallanes Anesthesia Type: General EBL: 500 mL Specimens Obtained: none Complications: None Implant Company: [employer] Implants: Gamma 3 Locking Nail 11 mm x 180 mm x 125; Gamma 3 system Lag Screw Titanium 10.5 mm x 85 mm; locking screw fully threaded 5 mm x 37.5 mm Findings: Extensive deep hematoma, there was probably 300 cc of old hematoma around the fracture site which immediately was drained at the time of the deep incision, but there was also active bleeding, more than usual. Bleeding from the skin edges and incisions was much more than usual, and hemostasis was achieved as well as possible using a combination of tranexamic acid and Bovie electrocautery. INDICATION FOR PROCEDURE: This patient is 74 years old, and fell, sustaining a right hip fracture. X-rays show an unstable intertrochanteric hip fracture. The patient and I discussed the risks, benefits and alternatives of treatment. The alternative for treatment is bedrest, which I generally do not recommend. I recommended intramedullary nailing, and I talked to her about the potential risks of this, including bleeding, infection, blood clots, malunion, nonunion or other potential surgical or anesthetic complications. All of the questions about surgery were answered, and she desired to proceed. A written consent was obtained. PROCEDURE IN DETAIL: The patient was identified in the preoperative holding area. The correct right hip was marked by me. The patient was taken to the operating room, where the patient was anesthetized by the Department of Anesthesia. Preoperative antibiotics were given intravenously. The HANA table was used and the well leg was placed in a padded lithotomy leg garcia while the foot of the left leg was placed in a traction foot boot. A time-out procedure was performed. The image intensifier was used, and a preliminary reduction performed. All of the images were interpreted intraoperatively by me, and the image intensifier was used throughout the case. The right hip area was prepared in sterile fashion with ChloraPrep solution and a sterile barrier I[place]an hip drape was used. An incision was made over the superior aspect of the greater trochanter. Large hematoma was noted with the fascia and was divided and this was irrigated with saline and laparotomy sponges and suction were used to remove the hematoma. A 3.2 mm guide pin was placed at the tip of the greater trochanter, and advanced into the intramedullary canal. The one step conical reamer was used over the guidewire, and a reamer sleeve was used to protect the soft tissues. No intramedullary reaming was required.The chosen nail was attached to the targeting device with the Nail Holding Screw. The nail was placed down the canal on the targeting device and the position confirmed on the image intensifier. A second incision was now used over the lower part of the greater trochanter, again with extensive bleeding which was controlled with electrocautery. This incision was used to place a guide pin through the guide, near the center-center position of the femoral head, and measured. The tunnel for the lag screw was reamed using the cannulated Lag Screw Step Drill. The chosen lag screw was inserted using the guide and advanced until there was a low tip-apex distance, by using sequential checks on the image intensifier. Traction on the HANA table was released. A Set Screw was now placed to lock the Lag Screw. Finally, a 5.0 mm diameter Distal Cross Lock Screw was, using the targeting guide after predrilling, and measuring. Satisfactory fracture reduction and hardware position was obtained using image intensifier views in multiple planes. Copious irrigation was used and the fascia was closed with #2 Vicryl. I used a multidrug injection for hemostasis and pain relief which includes ropivacaine, epinephrine, and morphine. Bovie electrocautery was used for hemostasis. My assistant department manager completed the closure with 2-0 Vicryl and carlton. A bulky sterile dressing was applied. The patient was gently transferred from the fracture table back to a hospital bed. There were no apparent complications. JORGE LUIS PLATA MD May 09, 2020 13:14
[2020-05-09] MEDS ORDERED: MORPHINE SULFATE 2 MG/ML VIAL. IVP PRN (13:15)
[2020-05-09] MEDS ORDERED: POLYETHYLENE GLYCOL 3350 17 GM PACKET. PO PRN (13:15)
[2020-05-09] MEDS ORDERED: oxyCODONE/APAP 5/325 1 TAB TABLET PO PRN (13:15)
[2020-05-09] MEDS ORDERED: ONDANSETRON PF 4 MG/2 ML VIAL. IVP PRN (13:15)
[2020-05-09] MEDS ORDERED: fentaNYL PF VIAL 100 MCG/2 ML VIAL IVP PRN (13:15)
[2020-05-09] MEDS ORDERED: DEXTROSE 50% 25 GM / 50ML DISP.SYRIN. IV PRN (13:15)
[2020-05-09 13:30] LABS: HEMATOCRIT 30.4 % (36.0-47.0); HEMOGLOBIN 9.9 g/dL (12.0-15.5); RED BLOOD COUNT 3.51 x10^6/uL (3.50-5.40); RED CELL DISTRIBUTION WIDTH 14.5 % (11.5-14.5); WHITE BLOOD COUNT 12.4 x10^3/uL (4.0-11.0)
--- NOTE | 2020-05-09 14:42 | PDOC ---
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 secondary to pain Hyperkalemia corrected Consultations been placed orthopedic surgery Surgery scheduled for today Pain management Zofran as needed Resume home medications PT/OT FEN - Cardiac diet PPX - Heparin FULL CODE Dispo - inpatient for above Vitals Vitals Vital Signs Date Time Temp Pulse Resp B/P (MAP) Pulse Ox O2 Delivery O2 Flow Rate FiO2 05/09/20 14:09 Nasal Cannula 4 05/09/20 14:00 63 15 102/48 100 05/09/20 13:02 97.1 97.1 Physical Exam Physical Exam General: Alert, Oriented X3, Cooperative, moderate distress HEENT: PERRLA, EOMI Lungs: Clear to auscultation, Normal air movement Heart: RRR, no murmurs Cardiovascular: S1, S2 Abdomen: Normal bowel sounds, Soft, No tenderness Extremities: Shortened and externally rotated right leg. No clubbing, No cyanosis. Skin: No rashes, No significant lesion Neuro: Normal speech, Normal tone, Sensation intact Psych/Mental Status: Mental status NL, Mood NL Labs LABS Laboratory Tests Test 05/09/20 06:45 05/09/20 13:20 Prothrombin Time 14.1 SEC (11.7-14.0) Prothromb Time International Ratio 1.1 (0.8-1.1) Sodium Level 137 mmol/L (136-145) Potassium Level 4.2 mmol/L (3.5-5.1) Chloride Level 102 mmol/L (98-107) Carbon Dioxide Level 28 mmol/L (21-32) Anion Gap 7 (6-14) Blood Urea Nitrogen 7 mg/dL (7-20) Creatinine 0.5 mg/dL (0.6-1.0) Estimated GFR (Cockcroft-Gault) 120.6 Glucose Level 98 mg/dL (70-99) Calcium Level 8.0 mg/dL (8.5-10.1) 25-Hydroxy Vitamin D Total 31.7 ng/mL (30-100) White Blood Count 12.4 x10^3/uL (4.0-11.0) Red Blood Count 3.51 x10^6/uL (3.50-5.40) Hemoglobin 9.9 g/dL (12.0-15.5) Hematocrit 30.4 % (36.0-47.0) Mean Corpuscular Volume 86 fL (79-100) Mean Corpuscular Hemoglobin 28 pg (25-35) Mean Corpuscular Hemoglobin Concent 33 g/dL (31-37) Red Cell Distribution Width 14.5 % (11.5-14.5) Platelet Count 228 x10^3/uL (140-400) Review of Systems Review of Systems Review of systems pertinent as per HPI otherwise 14 point review of system is negative Assessment and Plan Assessmemt and Plan Problems Medical Problems: (1) Closed head injury Status: Acute (2) Closed right hip fracture Status: Acute (3) Hyperkalemia Status: Acute (4) Hyponatremia Status: Acute Comment Review of Relevant I have reviewed the following items malik (where applicable) has been applied. Labs Laboratory Tests Test 05/08/20 10:45 05/08/20 12:45 05/09/20 06:45 05/09/20 13:20 White Blood Count 9.7 x10^3/uL (4.0-11.0) 12.4 x10^3/uL (4.0-11.0) Red Blood Count 4.61 x10^6/uL (3.50-5.40) 3.51 x10^6/uL (3.50-5.40) Hemoglobin 12.9 g/dL (12.0-15.5) 9.9 g/dL (12.0-15.5) Hematocrit 39.4 % (36.0-47.0) 30.4 % (36.0-47.0) Mean Corpuscular Volume 85 fL (79-100) 86 fL (79-100) Mean Corpuscular Hemoglobin 28 pg (25-35) 28 pg (25-35) Mean Corpuscular Hemoglobin Concent 33 g/dL (31-37) 33 g/dL (31-37) Red Cell Distribution Width 14.0 % (11.5-14.5) 14.5 % (11.5-14.5) Platelet Count 221 x10^3/uL (140-400) 228 x10^3/uL (140-400) Sodium Level 130 mmol/L (136-145) 137 mmol/L (136-145) Potassium Level 5.3 mmol/L (3.5-5.1) 4.2 mmol/L (3.5-5.1) Chloride Level 95 mmol/L (98-107) 102 mmol/L (98-107) Carbon Dioxide Level 28 mmol/L (21-32) 28 mmol/L (21-32) Anion Gap 7 (6-14) 7 (6-14) Blood Urea Nitrogen 11 mg/dL (7-20) 7 mg/dL (7-20) Creatinine 0.6 mg/dL (0.6-1.0) 0.5 mg/dL (0.6-1.0) Estimated GFR (Cockcroft-Gault) 97.7 120.6 BUN/Creatinine Ratio 18 (6-20) Glucose Level 77 mg/dL (70-99) 98 mg/dL (70-99) Calcium Level 8.8 mg/dL (8.5-10.1) 8.0 mg/dL (8.5-10.1) Total Bilirubin 0.6 mg/dL (0.2-1.0) Aspartate Amino Transf (AST/SGOT) 39 U/L (15-37) Alanine Aminotransferase (ALT/SGPT) 43 U/L (14-59) Alkaline Phosphatase 227 U/L (46-116) Total Protein 6.2 g/dL (6.4-8.2) Albumin 3.3 g/dL (3.4-5.0) Albumin/Globulin Ratio 1.1 (1.0-1.7) Urine Collection Type Unknown Urine Color Yellow Urine Clarity Clear Urine pH 7.5 (<5.0-8.0) Urine Specific [place] 1.010 (1.000-1.030) Urine Protein Negative mg/dL (NEG-TRACE) Urine Glucose (UA) Negative mg/dL (NEG) Urine Ketones (Stick) Negative mg/dL (NEG) Urine Blood Negative (NEG) Urine Nitrite Negative (NEG) Urine Bilirubin Negative (NEG) Urine Urobilinogen Dipstick 0.2 mg/dL (0.2 mg/dL) Urine Leukocyte Esterase Negative (NEG) Urine RBC 6-10 /HPF (0-2) Urine WBC 0 /HPF (0-4) Urine Amorphous Sediment Present /HPF Urine Bacteria 0 /HPF (0-FEW) Coronavirus (PCR) Not detected (Not Detected) SARS-CoV-2 Antigen (Rapid) Negative (NEGATIVE) Prothrombin Time 14.1 SEC (11.7-14.0) Prothromb Time International Ratio 1.1 (0.8-1.1) 25-Hydroxy Vitamin D Total 31.7 ng/mL (30-100) Laboratory Tests Test 05/09/20 06:45 05/09/20 13:20 Prothrombin Time 14.1 SEC (11.7-14.0) Prothromb Time International Ratio 1.1 (0.8-1.1) Sodium Level 137 mmol/L (136-145) Potassium Level 4.2 mmol/L (3.5-5.1) Chloride Level 102 mmol/L (98-107) Carbon Dioxide Level 28 mmol/L (21-32) Anion Gap 7 (6-14) Blood Urea Nitrogen 7 mg/dL (7-20) Creatinine 0.5 mg/dL (0.6-1.0) Estimated GFR (Cockcroft-Gault) 120.6 Glucose Level 98 mg/dL (70-99) Calcium Level 8.0 mg/dL (8.5-10.1) 25-Hydroxy Vitamin D Total 31.7 ng/mL (30-100) White Blood Count 12.4 x10^3/uL (4.0-11.0) Red Blood Count 3.51 x10^6/uL (3.50-5.40) Hemoglobin 9.9 g/dL (12.0-15.5) Hematocrit 30.4 % (36.0-47.0) Mean Corpuscular Volume 86 fL (79-100) Mean Corpuscular Hemoglobin 28 pg (25-35) Mean Corpuscular Hemoglobin Concent 33 g/dL (31-37) Red Cell Distribution Width 14.5 % (11.5-14.5) Platelet Count 228 x10^3/uL (140-400) Medications Current Medications Morphine Sulfate (Morphine Sulfate) 4 mg 1X ONCE IV Last administered on 05/08/20at 11:39; Start 05/08/20 at 11:15; Stop 05/08/20 at 11:16; Status DC Ondansetron HCl (Zofran) 4 mg 1X ONCE IVP Last administered on 05/08/20at 11:39; Start 05/08/20 at 11:15; Stop 05/08/20 at 11:16; Status DC Ondansetron HCl (Zofran) 4 mg PRN Q8HRS PRN IV NAUSEA/VOMITING; Start 05/08/20 at 12:30; Stop 05/09/20 at 12:29; Status Cancel Morphine Sulfate (Morphine Sulfate) 4 mg PRN Q2HR PRN IV PAIN; Start 05/08/20 at 12:30; Stop 05/09/20 at 12:29; Status Cancel Morphine Sulfate (Morphine Sulfate) 4 mg PRN Q2HR PRN IV SEVERE PAIN Last administered on 05/09/20at 10:11; Start 05/08/20 at 13:15; Stop 05/09/20 at 13:23; Status DC Fentanyl Citrate (Fentanyl 2ml Vial) 50 mcg PRN Q2HR PRN IVP BREAKTHROUGH PAIN; Start 05/08/20 at 13:15; Stop 05/09/20 at 13:22; Status DC Ondansetron HCl (Zofran) 4 mg PRN Q6HRS PRN IVP NAUSEA/VOMITING; Start 05/08/20 at 13:15; Stop 05/09/20 at 13:25; Status DC Al Hydroxide/Mg Hydroxide (Mylanta Plus Xs) 30 ml PRN Q3HRS PRN PO HEARTBURN / GAS; Start 05/08/20 at 13:15 Calcium Carbonate/ Glycine (Tums) 500 mg PRN Q3HRS PRN PO UPSET STOMACH; Start 05/08/20 at 13:15 Zolpidem Tartrate (Ambien) 5 mg PRN QHS PRN PO INSOMNIA, MAY REPEAT IN 1HR; Start 05/08/20 at 13:15 Morphine Sulfate (Morphine Sulfate) 2 mg PRN Q1HR PRN IV MODERATE PAIN Last administered on 05/09/20at 04:46; Start 05/08/20 at 13:15; Stop 05/09/20 at 13:23; Status DC Acetaminophen (Tylenol) 650 mg PRN Q6HRS PRN PO Headaches, Temp > 101.5F; Start 05/08/20 at 13:15 Magnesium Hydroxide (Milk Of Magnesia) 2,400 mg PRN Q12HR PRN PO CONSTIPATION; Start 05/08/20 at 13:15 Bisacodyl (Dulcolax Supp) 10 mg PRN DAILY PRN ME CONSTIPATION; Start 05/08/20 at 13:15 Heparin Sodium (Porcine) (Heparin Sodium) 5,000 unit Q8HRS SQ Last administered on 05/08/20at 15:17; Start 05/08/20 at 14:00; Stop 05/08/20 at 16:09; Status DC Aspirin (Ecotrin) 81 mg DAILY PO ; Start 05/09/20 at 09:00; Stop 05/09/20 at 13:21; Status DC Levothyroxine Sodium (Synthroid) 50 mcg DAILY07 PO Last administered on 05/09/20at 05:51; Start 05/09/20 at 07:00 Lisinopril (Prinivil) 10 mg DAILY PO ; Start 05/09/20 at 09:00 Polyethylene Glycol (miraLAX PACKET) 17 gm DAILY PO ; Start 05/09/20 at 09:00 Albuterol Sulfate (Ventolin Neb Soln) 2.5 mg RTBID NEB ; Start 05/08/20 at 20:00 Clonazepam (KlonoPIN) 2 mg BID PO Last administered on 05/08/20at 20:39; Start 05/08/20 at 21:00 Duloxetine HCl (Cymbalta) 60 mg DAILY PO ; Start 05/09/20 at 09:00 Metoprolol Succinate (Toprol Xl) 50 mg DAILY PO ; Start 05/09/20 at 09:00 Ropivacaine 53.3 ml/Epinephrine HCl 0.6 mg/ Morphine Sulfate 5 mg/Sodium Chloride 100 ml @ 100 mls/hr 1X ONCE INT ART Last administered on 05/09/20at 12:17; Start 05/09/20 at 06:00; Stop 05/09/20 at 06:59; Status DC Cefazolin Sodium/ Dextrose 50 ml @ 100 mls/hr 1X PREOP PRN IV SEE COMMENTS Last administered on 05/09/20at 12:10; Start 05/09/20 at 06:00 Sodium Chloride 1,000 ml @ 100 mls/hr Q10H IV Last administered on 05/09/20at 04:36; Start 05/08/20 at 16:15 Ondansetron HCl (Zofran) 4 mg PRN Q6HRS PRN IV NAUSEA/VOMITING Last administered on 05/09/20at 13:32; Start 05/10/20 at 07:00; Stop 05/11/20 at 06:59 Fentanyl Citrate (Fentanyl 2ml Vial) 25 mcg PRN Q5MIN PRN IV MILD PAIN 1-3; Start 05/10/20 at 07:00; Stop 05/11/20 at 06:59 Fentanyl Citrate (Fentanyl 2ml Vial) 50 mcg PRN Q5MIN PRN IV MODERATE TO SEVERE PAIN; Start 05/10/20 at 07:00; Stop 05/11/20 at 06:59 Morphine Sulfate (Morphine Sulfate) 1 mg PRN Q10MIN PRN IV SEVERE PAIN 7-10; Start 05/10/20 at 07:00; Stop 05/11/20 at 06:59 Ringer's Solution 1,000 ml @ 30 mls/hr Q24H IV ; Start 05/10/20 at 07:00; Stop 05/10/20 at 18:59 Lidocaine HCl (Xylocaine-Mpf 1% 2ml Vial) 2 ml PRN 1X PRN ID PRIOR TO IV START; Start 05/10/20 at 07:00; Stop 05/11/20 at 06:59 Hydromorphone HCl (Dilaudid) 0.5 mg PRN Q10MIN PRN IV SEV PAIN, Second choice; Start 05/10/20 at 07:00; Stop 05/11/20 at 06:59 Prochlorperazine Edisylate (Compazine) 5 mg PACU PRN PRN IV NAUSEA, MRX1; Start 05/10/20 at 07:00; Stop 05/11/20 at 06:59 Sevoflurane (Ultane) 60 ml STK-MED ONCE IH ; Start 05/09/20 at 11:37; Stop 05/09/20 at 11:38; Status DC Propofol (Diprivan) 200 mg STK-MED ONCE IV ; Start 05/09/20 at 11:38; Stop 05/09/20 at 11:38; Status DC Lidocaine HCl (Lidocaine Pf 2% Vial) 5 ml STK-MED ONCE .ROUTE ; Start 05/09/20 at 11:38; Stop 05/09/20 at 11:38; Status DC Dexamethasone Sodium Phosphate (Decadron) 4 mg STK-MED ONCE .ROUTE ; Start 05/09/20 at 11:38; Stop 05/09/20 at 11:38; Status DC Ondansetron HCl (Zofran) 4 mg STK-MED ONCE .ROUTE ; Start 05/09/20 at 11:38; Stop 05/09/20 at 11:38; Status DC Phenylephrine HCl (Jay-Synephrine Inj) 10 mg STK-MED ONCE .ROUTE ; Start 05/09/20 at 11:38; Stop 05/09/20 at 11:38; Status DC Tranexamic Acid 1000 mg/Sodium Chloride 60 ml @ 60 mls/hr 1X PERIOP ONCE INJ ; Start 05/09/20 at 12:30; Stop 05/09/20 at 13:29; Status DC Tranexamic Acid 1000 mg/Sodium Chloride 60 ml @ 60 mls/hr 1X PERIOP ONCE INJ ; Start 05/09/20 at 14:30; Stop 05/09/20 at 15:29 Ephedrine Sulfate (Akovaz) 50 mg STK-MED ONCE .ROUTE ; Start 05/09/20 at 13:10; Stop 05/09/20 at 13:10; Status DC Morphine Sulfate (Morphine Sulfate) 2 mg PRN Q1HR PRN IVP SEVERE PAIN 7-10; Start 05/09/20 at 13:15 Fentanyl Citrate (Fentanyl 2ml Vial) 25 mcg PRN Q1HR PRN IVP SEVERE PAIN 7-10; Start 05/09/20 at 13:15 Multivitamins (Thera M Plus) 1 tab DAILY PO ; Start 05/10/20 at 09:00 Senna/Docusate Sodium (Senna Plus) 1 tab DAILY PO ; Start 05/10/20 at 09:00 Polyethylene Glycol (miraLAX PACKET) 17 gm PRN DAILY PRN PO CONSTIPATION; Start 05/09/20 at 13:15 Ferrous Sulfate (Feosol) 325 mg BIDWMEALS PO ; Start 05/09/20 at 17:00 Vitamin D (Vitamin D3) 1,000 unit DAILY PO ; Start 05/10/20 at 09:00 Sodium Chloride 1,000 ml @ 75 mls/hr [id number] IV ; Start 05/09/20 at 13:15 Ondansetron HCl (Zofran) 4 mg PRN Q4HRS PRN IVP NAUSEA/VOMITING; Start 05/09/20 at 13:15 Aspirin (Surendra Aspirin) 325 mg BID PO ; Start 05/09/20 at 21:00; Stop 06/08/20 at 20:59 Magnesium Hydroxide (Milk Of Magnesia) 2,400 mg 1X PRN PRN PO CONSTIPATION; Start 05/10/20 at 06:00; Stop 05/11/20 at 05:59 Bisacodyl (Dulcolax Supp) 10 mg 1X PRN PRN ME CONSTIPATION; Start 05/10/20 at 16:00; Stop 05/11/20 at 15:59 Dextrose (Dextrose 50%-Water Syringe) 12.5 gm PRN Q15MIN PRN IV SEE COMMENTS; Start 05/09/20 at 13:15 Cefazolin Sodium/ Dextrose 50 ml @ 100 mls/hr Q6H IV ; Start 05/09/20 at 18:00; Stop 05/10/20 at 06:29 Oxycodone/ Acetaminophen (Percocet 5/325) 1 tab PRN Q4HRS PRN PO MODERATE PAIN; Start 05/09/20 at 13:15 Oxycodone/ Acetaminophen (Percocet 5/325) 2 tab PRN Q4HRS PRN PO SEVERE PAIN; Start 05/09/20 at 13:30 Active Scripts Active Hydroxychloroquine Sulfate 200 Mg Tablet 400 Mg PO DAILY 30 Days Polyethylene Glycol 3350 17 Gm Powd.pack 17 Gm PO DAILY 30 Days Diclofenac Sodium 50 Mg Tablet. 1 Tab PO BID Reported Melatonin 3 Mg Tablet 1 Tab PO QHS Kapspargo Sprinkle (Metoprolol Succinate) 50 Mg Cap.spr.24 50 Mg PO DAILY Meloxicam 7.5 Mg Tablet 1 Tab PO DAILY Lisinopril 10 Mg Tablet 1 Tab PO DAILY Levothyroxine Sodium 50 Mcg Tablet 1 Tab PO DAILY Cymbalta (Duloxetine Hcl) 60 Mg Capsule. 1 Cap PO DAILY Clonazepam 2 Mg Tablet 2 Mg PO BID Vitamin D3 (Cholecalciferol (Vitamin D3)) 1,000 Unit Tablet 1 Tab PO DAILY Centrum Silver Tablet (Multivits-Min/Fa/Lycopene/Lut) 1 Each Tablet 1 Each PO DAILY LAST DOSE THIS AM NEXT DOSE TOMORROW AM Fish Oil 1,000 Mg Softgel ([place]-3 Fatty Acids/Fish Oil) 1 Each Capsule 1 Each PO DAILY LAST DOSE THIS AM NEXT DOSE TOMORROW AM Combivent Respimat Inhal (Ipratropium/Albuterol Sulfate) 4 Gm Aer.w.adap 1 Inh I H QID MAY RESUME WHEN AT HOME Pantoprazole Sodium (Pantoprazole Sodium) 40 Mg Tablet. 1 Tab PO DAILY LAST DOSE THIS AM NEXT DOSE TOMORROW AM Albuterol Sulfate Conc Neb Soln (Albuterol Sulfate) 2.5 Mg/0.5 Ml Vial.neb 1 Vial NEB BID LAST DOSE THIS AM NEXT DOSE TONIGHT Aspir 81 (Aspirin) 81 Mg Tablet. 81 Mg PO LAST DOSE THIS AM NEXT DOSE TOMOOROW AM Vitals/I & O Vital Sign - Last 24 Hours 05/08/20 05/08/20 05/08/20 05/08/20 15:00 15:09 16:22 19:00 Temp 97.8 98.3 97.8 98.3 Pulse 60 53 Resp 20 16 B/P (MAP) 162/61 (94) 127/58 (81) Pulse Ox 98 95 90 O2 Delivery Room Air Room Air Room Air 05/08/20 05/08/20 05/08/20 05/08/20 20:00 20:40 21:10 23:00 Temp 97.7 97.7 Pulse 57 Resp 18 18 16 B/P (MAP) 101/59 (73) Pulse Ox 90 O2 Delivery Room Air Room Air Room Air 05/09/20 05/09/20 05/09/20 05/09/20 03:00 04:46 05:16 07:00 Temp 98.7 99.0 98.7 99.0 Pulse 63 66 Resp 16 18 20 18 B/P (MAP) 123/48 (73) 108/53 (71) Pulse Ox 92 98 O2 Delivery Nasal Cannula Nasal Cannula O2 Flow Rate 2.0 05/09/20 05/09/20 05/09/20 05/09/20 08:00 11:00 11:07 13:02 Temp 98.5 99.0 98.5 99.0 Pulse 61 60 Resp 18 15 B/P (MAP) 119/59 (79) 130/60 Pulse Ox 93 100 O2 Delivery Nasal Cannula Nasal Cannula Room Air Mask O2 Flow Rate 2.0 2.0 2.0 10 05/09/20 05/09/20 05/09/20 05/09/20 13:02 13:15 13:30 13:45 Temp 97.1 97.1 Pulse 55 62 66 63 Resp 15 15 15 15 B/P (MAP) 104/79 94/48 93/46 93/44 Pulse Ox 100 97 97 95 O2 Delivery Simple Mask Simple Mask Simple Mask Simple Mask O2 Flow Rate 10 10 10 10 05/09/20 05/09/20 14:00 14:09 Pulse 63 Resp 15 B/P (MAP) 102/48 Pulse Ox 100 O2 Delivery Simple Mask Nasal Cannula O2 Flow Rate 10 4 Intake and Output 05/08/20 05/08/20 05/09/20 15:00 23:00 07:00 Intake Total 250 ml 120 ml Output Total 1000 ml 850 ml Balance -750 ml -730 ml Nutrition Consultation Dietary Evaluation: Recommendations by RD: Dietary education by RD, Increase Calorie Intake, Protein supplementation Comments: REC mech soft, cardiac diet with mixed curry flavor magic cup bid REC mvi and vit c for wound healing Expected Outcomes/Goals: to meet >75% est nutr needs via po intake Malnutrition Findings: Body Fat Depletion (Non Severe: Mild Depletion Weight Status: Obese Justicifation of Admission Dx: Justifications for Admission: Justification of Admission Dx: Yes NELI ROBLES MD May 09, 2020 14:42
[2020-05-09] MEDS: POLYETHYLENE GLYCOL 3350 17 GM PACKET. PO SCH (15:09)
[2020-05-09] MEDS: DULoxetine HCL 30 MG CAPSULE.DR PO SCH (15:09)
[2020-05-09] MEDS: clonazePAM 0.5 MG TABLET PO SCH ×2 (15:09→21:39)
[2020-05-09] MEDS: IV 1/2 NORMAL SALINE 1,000 ML IV SCH (15:10)
[2020-05-09] MEDS: oxyCODONE/APAP 5/325 1 TAB TABLET PO PRN (16:45)
[2020-05-09] MEDS: FERROUS SULFATE 325 MG TABLET. PO SCH (17:54)
[2020-05-09] MEDS: ASPIRIN 325 MG TABLET PO SCH (21:39)
[2020-05-10] MEDS: IV 1/2 NORMAL SALINE 1,000 ML IV SCH (02:35)
[2020-05-10 03:00] VITALS: BP 100/33
[2020-05-10] MEDS: LEVOTHYROXINE 50 MCG TABLET PO SCH (05:14)
[2020-05-10] MEDS: oxyCODONE/APAP 5/325 1 TAB TABLET PO PRN ×2 (05:14→09:18)
[2020-05-10] MEDS ORDERED: MAGNESIUM HYDROXIDE 2,400 MG/30 ML ORAL.SUSP. PO PRN (06:00)
[2020-05-10 07:00] VITALS: BP 109/44
[2020-05-10] MEDS ORDERED: MORPHINE SULFATE 2 MG/ML VIAL. IV PRN (07:00)
[2020-05-10] MEDS ORDERED: ONDANSETRON PF 4 MG/2 ML VIAL. IV PRN (07:00)
[2020-05-10] MEDS ORDERED: PROCHLORPERAZINE 10 MG/2 ML VIAL. IV PRN (07:00)
[2020-05-10] MEDS ORDERED: HYDROmorphone 2 MG/ML VIAL IV PRN (07:00)
[2020-05-10] MEDS ORDERED: LIDOCAINE 1% PF 2 ML VIAL. ID PRN (07:00)
[2020-05-10] MEDS ORDERED: fentaNYL PF VIAL 100 MCG/2 ML VIAL IV PRN ×2 (07:00)
[2020-05-10] MEDS ORDERED: IV RINGERS,LACTATED 1000ML 1,000 ML IV SCH (07:00)
[2020-05-10] MEDS: ALBUTEROL SULFATE 2.5 MG/3 ML NEBU. NEB SCH ×2 (08:00→20:43)
[2020-05-10] MEDS: METOPROLOL SUCC 24HR ER 50 MG TAB.ER.24H. PO SCH (08:43)
[2020-05-10] MEDS: FERROUS SULFATE 325 MG TABLET. PO SCH ×2 (08:43→16:56)
[2020-05-10] MEDS: MULTIVITAMIN with MINERAL TABLET. PO SCH (08:43)
[2020-05-10] MEDS: CHOLECALCIFEROL (VITAMIN D3) 1,000 UNIT TABLET PO SCH (08:43)
[2020-05-10] MEDS: SENNOSIDES/DOCUSATE 8.6/50MG TABLET. PO SCH (08:43)
[2020-05-10] MEDS: clonazePAM 0.5 MG TABLET PO SCH ×2 (08:43→20:30)
[2020-05-10] MEDS: DULoxetine HCL 30 MG CAPSULE.DR PO SCH (08:43)
[2020-05-10] MEDS: ASPIRIN 325 MG TABLET PO SCH ×2 (08:44→20:30)
[2020-05-10] MEDS: LISINOPRIL 10 MG TABLET PO SCH (08:44)
[2020-05-10] MEDS: POLYETHYLENE GLYCOL 3350 17 GM PACKET. PO SCH (08:44)
[2020-05-10 10:07] LABS: HEMATOCRIT 23.1 % (36.0-47.0); HEMOGLOBIN 7.7 g/dL (12.0-15.5)
[2020-05-10 11:00] VITALS: BP_SYST 102; BP_SYST 92; BP_DIAS 45; BP_DIAS 47
[2020-05-10 15:00] VITALS: BP 105/39
[2020-05-10] MEDS ORDERED: BISACODYL 10 MG SUPP.RECT. PR PRN (16:00)
[2020-05-10 19:00] VITALS: BP 133/52
--- NOTE | 2020-05-10 19:32 | PDOC ---
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 She was reportedly returning equipment from sleep study today, when she had a ground-level fall landing on her right side. She began planing of right hip pain at that time, 02/08. She states she is chronically weak in her lower extremities, and normally ambulates with a walker. She does admit to associated head injury, and is not on blood thinners. Upon arrival in the ER there is obvious deformity and externally rotated right leg. X-ray shows displaced right femoral neck fracture. Will admit patient for further medical management with orthopedic consultation. 05/10: No acute events reported overnight, case discussed with nursing staff patient in no acute distress no complaints during my visit Vitals Vitals Vital Signs Date Time Temp Pulse Resp B/P (MAP) Pulse Ox O2 Delivery O2 Flow Rate FiO2 05/10/20 18:06 Nasal Cannula 05/10/20 15:00 98.2 62 16 105/39 (61) 90 2.0 98.2 Physical Exam Physical Exam General: Alert, Oriented X3, Cooperative, moderate distress HEENT: PERRLA, EOMI Lungs: Clear to auscultation, Normal air movement Heart: RRR, no murmurs Cardiovascular: S1, S2 Abdomen: Normal bowel sounds, Soft, No tenderness Extremities: Shortened and externally rotated right leg. No clubbing, No cyan osis. Skin: No rashes, No significant lesion Neuro: Normal speech, Normal tone, Sensation intact Psych/Mental Status: Mental status NL, Mood NL Labs LABS Laboratory Tests Test 05/10/20 08:34 Hemoglobin 7.7 g/dL (12.0-15.5) Hematocrit 23.1 % (36.0-47.0) Mean Corpuscular Hemoglobin Concent 33 g/dL (31-37) Review of Systems Review of Systems Review of systems pertinent as per HPI otherwise 14 point review of system is negative Assessment and Plan Assessmemt and Plan Problems Medical Problems: (1) Closed head injury Status: Acute (2) Closed right hip fracture Status: Acute (3) Hyperkalemia Status: Acute (4) Hyponatremia Status: Acute Comment Review of Relevant I have reviewed the following items malik (where applicable) has been applied. Labs Laboratory Tests Test 05/09/20 06:45 05/09/20 13:20 05/10/20 08:34 Prothrombin Time 14.1 SEC (11.7-14.0) Prothromb Time International Ratio 1.1 (0.8-1.1) Sodium Level 137 mmol/L (136-145) Potassium Level 4.2 mmol/L (3.5-5.1) Chloride Level 102 mmol/L (98-107) Carbon Dioxide Level 28 mmol/L (21-32) Anion Gap 7 (6-14) Blood Urea Nitrogen 7 mg/dL (7-20) Creatinine 0.5 mg/dL (0.6-1.0) Estimated GFR (Cockcroft-Gault) 120.6 Glucose Level 98 mg/dL (70-99) Calcium Level 8.0 mg/dL (8.5-10.1) 25-Hydroxy Vitamin D Total 31.7 ng/mL (30-100) White Blood Count 12.4 x10^3/uL (4.0-11.0) Red Blood Count 3.51 x10^6/uL (3.50-5.40) Hemoglobin 9.9 g/dL (12.0-15.5) 7.7 g/dL (12.0-15.5) Hematocrit 30.4 % (36.0-47.0) 23.1 % (36.0-47.0) Mean Corpuscular Volume 86 fL (79-100) Mean Corpuscular Hemoglobin 28 pg (25-35) Mean Corpuscular Hemoglobin Concent 33 g/dL (31-37) 33 g/dL (31-37) Red Cell Distribution Width 14.5 % (11.5-14.5) Platelet Count 228 x10^3/uL (140-400) Laboratory Tests Test 05/10/20 08:34 Hemoglobin 7.7 g/dL (12.0-15.5) Hematocrit 23.1 % (36.0-47.0) Mean Corpuscular Hemoglobin Concent 33 g/dL (31-37) Medications Current Medications Morphine Sulfate (Morphine Sulfate) 4 mg 1X ONCE IV Last administered on 05/08/20at 11:39; Start 05/08/20 at 11:15; Stop 05/08/20 at 11:16; Status DC Ondansetron HCl (Zofran) 4 mg 1X ONCE IVP Last administered on 05/08/20at 11:39; Start 05/08/20 at 11:15; Stop 05/08/20 at 11:16; Status DC Ondansetron HCl (Zofran) 4 mg PRN Q8HRS PRN IV NAUSEA/VOMITING; Start 05/08/20 at 12:30; Stop 05/09/20 at 12:29; Status Cancel Morphine Sulfate (Morphine Sulfate) 4 mg PRN Q2HR PRN IV PAIN; Start 05/08/20 at 12:30; Stop 05/09/20 at 12:29; Status Cancel Morphine Sulfate (Morphine Sulfate) 4 mg PRN Q2HR PRN IV SEVERE PAIN Last ad ministered on 05/09/20at 10:11; Start 05/08/20 at 13:15; Stop 05/09/20 at 13:23; Status DC Fentanyl Citrate (Fentanyl 2ml Vial) 50 mcg PRN Q2HR PRN IVP BREAKTHROUGH PAIN; Start 05/08/20 at 13:15; Stop 05/09/20 at 13:22; Status DC Ondansetron HCl (Zofran) 4 mg PRN Q6HRS PRN IVP NAUSEA/VOMITING; Start 05/08/20 at 13:15; Stop 05/09/20 at 13:25; Status DC Al Hydroxide/Mg Hydroxide (Mylanta Plus Xs) 30 ml PRN Q3HRS PRN PO HEARTBURN / GAS; Start 05/08/20 at 13:15 Calcium Carbonate/ Glycine (Tums) 500 mg PRN Q3HRS PRN PO UPSET STOMACH; Start 05/08/20 at 13:15 Zolpidem Tartrate (Ambien) 5 mg PRN QHS PRN PO INSOMNIA, MAY REPEAT IN 1HR; Start 05/08/20 at 13:15 Morphine Sulfate (Morphine Sulfate) 2 mg PRN Q1HR PRN IV MODERATE PAIN Last administered on 05/09/20at 04:46; Start 05/08/20 at 13:15; Stop 05/09/20 at 13:23; Status DC Acetaminophen (Tylenol) 650 mg PRN Q6HRS PRN PO Headaches, Temp > 101.5F; Start 05/08/20 at 13:15 Magnesium Hydroxide (Milk Of Magnesia) 2,400 mg PRN Q12HR PRN PO CONSTIPATION; Start 05/08/20 at 13:15 Bisacodyl (Dulcolax Supp) 10 mg PRN DAILY PRN [place] CONSTIPATION; Start 05/08/20 at 13:15 Heparin Sodium (Porcine) (Heparin Sodium) 5,000 unit Q8HRS SQ Last administered on 05/08/20at 15:17; Start 05/08/20 at 14:00; Stop 05/08/20 at 16:09; Status DC Aspirin (Ecotrin) 81 mg DAILY PO ; Start 05/09/20 at 09:00; Stop 05/09/20 at 13:21; Status DC Levothyroxine Sodium (Synthroid) 50 mcg DAILY07 PO Last administered on 05/10/20at 05:14; Start 05/09/20 at 07:00 Lisinopril (Prinivil) 10 mg DAILY PO Last administered on 05/10/20at 08:44; Start 05/09/20 at 09:00 Polyethylene Glycol (miraLAX PACKET) 17 gm DAILY PO Last administered on 05/10/20at 08:44; Start 05/09/20 at 09:00 Albuterol Sulfate (Ventolin Neb Soln) 2.5 mg RTBID NEB ; Start 05/08/20 at 20:00 Clonazepam (KlonoPIN) 2 mg BID PO Last administered on 05/10/20at 08:43; Start 05/08/20 at 21:00 Duloxetine HCl (Cymbalta) 60 mg DAILY PO Last administered on 05/10/20at 08:43; Start 05/09/20 at 09:00 Metoprolol Succinate (Toprol Xl) 50 mg DAILY PO Last administered on 05/10/20at 08:43; Start 05/09/20 at 09:00 Ropivacaine 53.3 ml/Epinephrine HCl 0.6 mg/ Morphine Sulfate 5 mg/Sodium Chloride 100 ml @ 100 mls/hr 1X ONCE INT ART Last administered on 05/09/20at 12:17; Start 05/09/20 at 06:00; Stop 05/09/20 at 06:59; Status DC Cefazolin Sodium/ Dextrose 50 ml @ 100 mls/hr 1X PREOP PRN IV SEE COMMENTS Last administered on 05/09/20at 12:10; Start 05/09/20 at 06:00; Stop 05/10/20 at 07:25; Status DC Sodium Chloride 1,000 ml @ 100 mls/hr Q10H IV Last administered on 05/09/20at 04:36; Start 05/08/20 at 16:15; Stop 05/09/20 at 15:53; Status DC Ondansetron HCl (Zofran) 4 mg PRN Q6HRS PRN IV NAUSEA/VOMITING Last administered on 05/09/20at 13:32; Start 05/10/20 at 07:00; Stop 05/10/20 at 07:31; Status DC Fentanyl Citrate (Fentanyl 2ml Vial) 25 mcg PRN Q5MIN PRN IV MILD PAIN 1-3; Start 05/10/20 at 07:00; Stop 05/10/20 at 07:31; Status DC Fentanyl Citrate (Fentanyl 2ml Vial) 50 mcg PRN Q5MIN PRN IV MODERATE TO SEVERE PAIN; Start 05/10/20 at 07:00; Stop 05/10/20 at 07:31; Status DC Morphine Sulfate (Morphine Sulfate) 1 mg PRN Q10MIN PRN IV SEVERE PAIN 7-10; Start 05/10/20 at 07:00; Stop 05/10/20 at 07:32; Status DC Ringer's Solution 1,000 ml @ 30 mls/hr Q24H IV ; Start 05/10/20 at 07:00; Stop 05/09/20 at 15:53; Status DC Lidocaine HCl (Xylocaine-Mpf 1% 2ml Vial) 2 ml PRN 1X PRN ID PRIOR TO IV START; Start 05/10/20 at 07:00; Stop 05/10/20 at 07:31; Status DC Hydromorphone HCl (Dilaudid) 0.5 mg PRN Q10MIN PRN IV SEV PAIN, Second choice; Start 05/10/20 at 07:00; Stop 05/10/20 at 07:31; Status DC Prochlorperazine Edisylate (Compazine) 5 mg PACU PRN PRN IV NAUSEA, MRX1; Start 05/10/20 at 07:00; Stop 05/10/20 at 07:31; Status DC Sevoflurane (Ultane) 60 ml STK-MED ONCE IH ; Start 05/09/20 at 11:37; Stop 05/09/20 at 11:38; Status DC Propofol (Diprivan) 200 mg STK-MED ONCE IV ; Start 05/09/20 at 11:38; Stop 05/09/20 at 11:38; Status DC Lidocaine HCl (Lidocaine Pf 2% Vial) 5 ml STK-MED ONCE .ROUTE ; Start 05/09/20 at 11:38; Stop 05/09/20 at 11:38; Status DC Dexamethasone Sodium Phosphate (Decadron) 4 mg STK-MED ONCE .ROUTE ; Start 05/09/20 at 11:38; Stop 05/09/20 at 11:38; Status DC Ondansetron HCl (Zofran) 4 mg STK-MED ONCE .ROUTE ; Start 05/09/20 at 11:38; Stop 05/09/20 at 11:38; Status DC Phenylephrine HCl (Jay-Synephrine Inj) 10 mg STK-MED ONCE .ROUTE ; Start 05/09/20 at 11:38; Stop 05/09/20 at 11:38; Status DC Tranexamic Acid 1000 mg/Sodium Chloride 60 ml @ 60 mls/hr 1X PERIOP ONCE INJ ; Start 05/09/20 at 12:30; Stop 05/09/20 at 13:29; Status DC Tranexamic Acid 1000 mg/Sodium Chloride 60 ml @ 60 mls/hr 1X PERIOP ONCE INJ ; Start 05/09/20 at 14:30; Stop 05/09/20 at 15:29; Status DC Ephedrine Sulfate (Akovaz) 50 mg STK-MED ONCE .ROUTE ; Start 05/09/20 at 13:10; Stop 05/09/20 at 13:10; Status DC Morphine Sulfate (Morphine Sulfate) 2 mg PRN Q1HR PRN IVP SEVERE PAIN 7-10; Start 05/09/20 at 13:15 Fentanyl Citrate (Fentanyl 2ml Vial) 25 mcg PRN Q1HR PRN IVP SEVERE PAIN 7-10; Start 05/09/20 at 13:15 Multivitamins (Thera M Plus) 1 tab DAILY PO Last administered on 05/10/20at 08:43; Start 05/10/20 at 09:00 Senna/Docusate Sodium (Senna Plus) 1 tab DAILY PO Last administered on 05/10/20at 08:43; Start 05/10/20 at 09:00 Polyethylene Glycol (miraLAX PACKET) 17 gm PRN DAILY PRN PO CONSTIPATION; Start 05/09/20 at 13:15 Ferrous Sulfate (Feosol) 325 mg BIDWMEALS PO Last administered on 05/10/20at 16:56; Start 05/09/20 at 17:00 Vitamin D (Vitamin D3) 1,000 unit DAILY PO Last administered on 05/10/20at 08:43; Start 05/10/20 at 09:00 Sodium Chloride 1,000 ml @ 75 mls/hr [id number] IV Last administered on 05/09/20at 15:10; Start 05/09/20 at 13:15; Stop 05/10/20 at 09:03; Status DC Ondansetron HCl (Zofran) 4 mg PRN Q4HRS PRN IVP NAUSEA/VOMITING; Start 05/09/20 at 13:15 Aspirin (Surendra Aspirin) 325 mg BID PO Last administered on 05/10/20at 08:44; Start 05/09/20 at 21:00; Stop 06/08/20 at 20:59 Magnesium Hydroxide (Milk Of Magnesia) 2,400 mg 1X PRN PRN PO CONSTIPATION; Start 05/10/20 at 06:00; Stop 05/11/20 at 05:59 Bisacodyl (Dulcolax Supp) 10 mg 1X PRN PRN [place] CONSTIPATION; Start 05/10/20 at 16:00; Stop 05/11/20 at 15:59 Dextrose (Dextrose 50%-Water Syringe) 12.5 gm PRN Q15MIN PRN IV SEE COMMENTS; Start 05/09/20 at 13:15 Cefazolin Sodium/ Dextrose 50 ml @ 100 mls/hr Q6H IV Last administered on 05/10/20at 05:15; Start 05/09/20 at 18:00; Stop 05/10/20 at 06:29; Status DC Oxycodone/ Acetaminophen (Percocet 5/325) 1 tab PRN Q4HRS PRN PO MODERATE PAIN Last administered on 05/10/20at 16:56; Start 05/09/20 at 13:15 Oxycodone/ Acetaminophen (Percocet 5/325) 2 tab PRN Q4HRS PRN PO SEVERE PAIN Last administered on 05/10/20at 09:18; Start 05/09/20 at 13:30 Active Scripts Active Hydroxychloroquine Sulfate 200 Mg Tablet 400 Mg PO DAILY 30 Days Polyethylene Glycol 3350 17 Gm Powd.pack 17 Gm PO DAILY 30 Days Diclofenac Sodium 50 Mg Tablet. 1 Tab PO BID Reported Melatonin 3 Mg Tablet 1 Tab PO QHS Kapspargo Sprinkle (Metoprolol Succinate) 50 Mg Cap.spr.24 50 Mg PO DAILY Meloxicam 7.5 Mg Tablet 1 Tab PO DAILY Lisinopril 10 Mg Tablet 1 Tab PO DAILY Levothyroxine Sodium 50 Mcg Tablet 1 Tab PO DAILY Cymbalta (Duloxetine Hcl) 60 Mg Capsule. 1 Cap PO DAILY Clonazepam 2 Mg Tablet 2 Mg PO BID Vitamin D3 (Cholecalciferol (Vitamin D3)) 1,000 Unit Tablet 1 Tab PO DAILY Centrum Silver Tablet (Multivits-Min/Fa/Lycopene/Lut) 1 Each Tablet 1 Each PO DAILY LAST DOSE THIS AM NEXT DOSE TOMORROW AM Fish Oil 1,000 Mg Softgel ([place]-3 Fatty Acids/Fish Oil) 1 Each Capsule 1 Each PO DAILY LAST DOSE THIS AM NEXT DOSE TOMORROW AM Combivent Respimat Inhal (Ipratropium/Albuterol Sulfate) 4 Gm Aer.w.adap 1 Inh IH QID MAY RESUME WHEN AT HOME Pantoprazole Sodium (Pantoprazole Sodium) 40 Mg Tablet. 1 Tab PO DAILY LAST DOSE THIS AM NEXT DOSE TOMORROW AM Albuterol Sulfate Conc Neb Soln (Albuterol Sulfate) 2.5 Mg/0.5 Ml Vial.neb 1 Vial NEB BID LAST DOSE THIS AM NEXT DOSE TONIGHT Aspir 81 (Aspirin) 81 Mg Tablet. 81 Mg PO LAST DOSE THIS AM NEXT DOSE TOMOOROW AM Vitals/I & O Vital Sign - Last 24 Hours 05/09/20 05/09/20 05/10/20 05/10/20 20:00 23:00 03:00 05:14 Temp 98.4 98.6 98.4 98.6 Pulse 64 65 Resp 19 19 20 B/P (MAP) 92/42 (59) 100/33 (55) Pulse Ox 92 90 O2 Delivery Nasal Cannula Nasal Cannula Nasal Cannula Nasal Cannula O2 Flow Rate 2.0 2.0 2.0 2.0 05/10/20 05/10/20 05/10/20 05/10/20 07:00 08:00 08:43 08:44 Temp 97.8 97.8 Pulse 71 71 71 Resp 16 B/P (MAP) 109/44 (65) 109/44 109/44 Pulse Ox 96 O2 Delivery Nasal Cannula Nasal Cannula O2 Flow Rate 2.0 2.0 05/10/20 05/10/20 05/10/20 05/10/20 09:18 10:18 11:00 11:00 Temp 97.8 97.8 Pulse 76 Resp 18 B/P (MAP) 92/47 (62) 102/45 (64) Pulse Ox 96 O2 Delivery Nasal Cannula Nasal Cannula Nasal Cannula O2 Flow Rate 2.0 05/10/20 05/10/20 05/10/20 15:00 16:56 18:06 Temp 98.2 98.2 Pulse 62 Resp 16 B/P (MAP) 105/39 (61) Pulse Ox 90 O2 Delivery Nasal Cannula Nasal Cannula Nasal Cannula O2 Flow Rate 2.0 Intake and Output 05/09/20 05/09/20 05/10/20 15:00 23:00 07:00 Intake Total 500 ml 250 ml 1350 ml Output Total 750 ml 425 ml Balance -250 ml 250 ml 925 ml Nutrition Consultation Dietary Evaluation: Recommendations by RD: Dietary education by RD, Increase Calorie Intake, Protein supplementation Comments: REC mech soft, cardiac diet with mixed curry flavor magic cup bid REC mvi and vit c for wound healing Expected Outcomes/Goals: to meet >75% est nutr needs via po intake Malnutrition Findings: Body Fat Depletion (Non Severe: Mild Depletion Weight Status: Obese Justicifation of Admission Dx: Justifications for Admission: Justification of Admission Dx: Yes NELI ROBLES MD May 10, 2020 19:32
[2020-05-10 23:00] VITALS: BP 99/49
[2020-05-11 03:06] VITALS: BP 108/51
[2020-05-11] MEDS: oxyCODONE/APAP 5/325 1 TAB TABLET PO PRN ×4 (03:06→21:21)
[2020-05-11] MEDS: LEVOTHYROXINE 50 MCG TABLET PO SCH (06:11)
[2020-05-11] MEDS: ALBUTEROL SULFATE 2.5 MG/3 ML NEBU. NEB SCH ×2 (06:59→20:00)
[2020-05-11 07:00] VITALS: BP 108/55
--- NOTE | 2020-05-11 07:55 | PDOC ---
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 She was reportedly returning equipment from sleep study today, when she had a ground-level fall landing on her right side. She began planing of right hip pain at that time, 02/08. She states she is chronically weak in her lower extremities, and normally ambulates with a walker. She does admit to associated head injury, and is not on blood thinners. Upon arrival in the ER there is obvious deformity and externally rotated right leg. X-ray shows displaced right femoral neck fracture. Will admit patient for further medical management with orthopedic consultation. 05/10: No acute events reported overnight, case discussed with nursing staff patient in no acute distress no complaints during my visit 05/11: Patient resting peacefully in bed in no acute distress. No pain during my encounter, patient will require [facility] facility as per notes from physical therapy. No acute events reported overnight Vitals Vitals Vital Signs Date Time Temp Pulse Resp B/P (MAP) Pulse Ox O2 Delivery O2 Flow Rate FiO2 05/11/20 06:59 97 Nasal Cannula 2.0 05/11/20 03:06 98.3 66 17 108/51 (70) 98.3 Physical Exam Physical Exam General: Alert, Oriented X3, Cooperative, moderate distress HEENT: PERRLA, EOMI Lungs: Clear to auscultation, Normal air movement Heart: RRR, no murmurs Cardiovascular: S1, S2 Abdomen: Normal bowel sounds, Soft, No tenderness Extremities: Shortened and externally rotated right leg. No clubbing, No cyanosis. Skin: No rashes, No significant lesion Neuro: Normal speech, Normal tone, Sensation intact Psych/Mental Status: Mental status NL, Mood NL Labs LABS Laboratory Tests Test 05/10/20 08:34 Hemoglobin 7.7 g/dL (12.0-15.5) Hematocrit 23.1 % (36.0-47.0) Mean Corpuscular Hemoglobin Concent 33 g/dL (31-37) Assessment and Plan Assessmemt and Plan Problems Medical Problems: (1) Closed head injury Status: Acute (2) Closed right hip fracture Status: Acute (3) Hyperkalemia Status: Acute (4) Hyponatremia Status: Acute Comment Review of Relevant I have reviewed the following items malik (where applicable) has been applied. Labs Laboratory Tests Test 05/09/20 13:20 05/10/20 08:34 White Blood Count 12.4 x10^3/uL (4.0-11.0) Red Blood Count 3.51 x10^6/uL (3.50-5.40) Hemoglobin 9.9 g/dL (12.0-15.5) 7.7 g/dL (12.0-15.5) Hematocrit 30.4 % (36.0-47.0) 23.1 % (36.0-47.0) Mean Corpuscular Volume 86 fL (79-100) Mean Corpuscular Hemoglobin 28 pg (25-35) Mean Corpuscular Hemoglobin Concent 33 g/dL (31-37) 33 g/dL (31-37) Red Cell Distribution Width 14.5 % (11.5-14.5) Platelet Count 228 x10^3/uL (140-400) Laboratory Tests Test 05/10/20 08:34 Hemoglobin 7.7 g/dL (12.0-15.5) Hematocrit 23.1 % (36.0-47.0) Mean Corpuscular Hemoglobin Concent 33 g/dL (31-37) Medications Current Medications Morphine Sulfate (Morphine Sulfate) 4 mg 1X ONCE IV Last administered on 05/08/20at 11:39; Start 05/08/20 at 11:15; Stop 05/08/20 at 11:16; Status DC Ondansetron HCl (Zofran) 4 mg 1X ONCE IVP Last administered on 05/08/20at 11:39; Start 05/08/20 at 11:15; Stop 05/08/20 at 11:16; Status DC Ondansetron HCl (Zofran) 4 mg PRN Q8HRS PRN IV NAUSEA/VOMITING; Start 05/08/20 at 12:30; Stop 05/09/20 at 12:29; Status Cancel Morphine Sulfate (Morphine Sulfate) 4 mg PRN Q2HR PRN IV PAIN; Start 05/08/20 at 12:30; Stop 05/09/20 at 12:29; Status Cancel Morphine Sulfate (Morphine Sulfate) 4 mg PRN Q2HR PRN IV SEVERE PAIN Last administered on 05/09/20at 10:11; Start 05/08/20 at 13:15; Stop 05/09/20 at 13:23; Status DC Fentanyl Citrate (Fentanyl 2ml Vial) 50 mcg PRN Q2HR PRN IVP BREAKTHROUGH PAIN; Start 05/08/20 at 13:15; Stop 05/09/20 at 13:22; Status DC Ondansetron HCl (Zofran) 4 mg PRN Q6HRS PRN IVP NAUSEA/VOMITING; Start 05/08/20 at 13:15; Stop 05/09/20 at 13:25; Status DC Al Hydroxide/Mg Hydroxide (Mylanta Plus Xs) 30 ml PRN Q3HRS PRN PO HEARTBURN / GAS; Start 05/08/20 at 13:15 Calcium Carbonate/ Glycine (Tums) 500 mg PRN Q3HRS PRN PO UPSET STOMACH; Start 05/08/20 at 13:15 Zolpidem Tartrate (Ambien) 5 mg PRN QHS PRN PO INSOMNIA, MAY REPEAT IN 1HR; Start 05/08/20 at 13:15 Morphine Sulfate (Morphine Sulfate) 2 mg PRN Q1HR PRN IV MODERATE PAIN Last administered on 05/09/20at 04:46; Start 05/08/20 at 13:15; Stop 05/09/20 at 13:23; Status DC Acetaminophen (Tylenol) 650 mg PRN Q6HRS PRN PO Headaches, Temp > 101.5F; Start 05/08/20 at 13:15 Magnesium Hydroxide (Milk Of Magnesia) 2,400 mg PRN Q12HR PRN PO CONSTIPATION; Start 05/08/20 at 13:15 Bisacodyl (Dulcolax Supp) 10 mg PRN DAILY PRN [place] CONSTIPATION; Start 05/08/20 at 13:15 Heparin Sodium (Porcine) (Heparin Sodium) 5,000 unit Q8HRS SQ Last administered on 05/08/20at 15:17; Start 05/08/20 at 14:00; Stop 05/08/20 at 16:09; Status DC Aspirin (Ecotrin) 81 mg DAILY PO ; Start 05/09/20 at 09:00; Stop 05/09/20 at 13:21; Status DC Levothyroxine Sodium (Synthroid) 50 mcg DAILY07 PO Last administered on 05/11/20at 06:11; Start 05/09/20 at 07:00 Lisinopril (Prinivil) 10 mg DAILY PO Last administered on 05/10/20at 08:44; Start 05/09/20 at 09:00 Polyethylene Glycol (miraLAX PACKET) 17 gm DAILY PO Last administered on 05/10/20at 08:44; Start 05/09/20 at 09:00 Albuterol Sulfate (Ventolin Neb Soln) 2.5 mg RTBID NEB Last administered on 05/11/20at 06:59; Start 05/08/20 at 20:00 Clonazepam (KlonoPIN) 2 mg BID PO Last administered on 05/10/20at 20:30; Start 05/08/20 at 21:00 Duloxetine HCl (Cymbalta) 60 mg DAILY PO Last administered on 05/10/20at 08:43; Start 05/09/20 at 09:00 Metoprolol Succinate (Toprol Xl) 50 mg DAILY PO Last administered on 05/10/20at 08:43; Start 05/09/20 at 09:00 Ropivacaine 53.3 ml/Epinephrine HCl 0.6 mg/ Morphine Sulfate 5 mg/Sodium Chlorid e 100 ml @ 100 mls/hr 1X ONCE INT ART Last administered on 05/09/20at 12:17; Start 05/09/20 at 06:00; Stop 05/09/20 at 06:59; Status DC Cefazolin Sodium/ Dextrose 50 ml @ 100 mls/hr 1X PREOP PRN IV SEE COMMENTS Last administered on 05/09/20at 12:10; Start 05/09/20 at 06:00; Stop 05/10/20 at 07:25; Status DC Sodium Chloride 1,000 ml @ 100 mls/hr Q10H IV Last administered on 05/09/20at 04:36; Start 05/08/20 at 16:15; Stop 05/09/20 at 15:53; Status DC Ondansetron HCl (Zofran) 4 mg PRN Q6HRS PRN IV NAUSEA/VOMITING Last administered on 05/09/20at 13:32; Start 05/10/20 at 07:00; Stop 05/10/20 at 07:31; Status DC Fentanyl Citrate (Fentanyl 2ml Vial) 25 mcg PRN Q5MIN PRN IV MILD PAIN 1-3; Start 05/10/20 at 07:00; Stop 05/10/20 at 07:31; Status DC Fentanyl Citrate (Fentanyl 2ml Vial) 50 mcg PRN Q5MIN PRN IV MODERATE TO SEVERE PAIN; Start 05/10/20 at 07:00; Stop 05/10/20 at 07:31; Status DC Morphine Sulfate (Morphine Sulfate) 1 mg PRN Q10MIN PRN IV SEVERE PAIN 7-10; Start 05/10/20 at 07:00; Stop 05/10/20 at 07:32; Status DC Ringer's Solution 1,000 ml @ 30 mls/hr Q24H IV ; Start 05/10/20 at 07:00; Stop 05/09/20 at 15:53; Status DC Lidocaine HCl (Xylocaine-Mpf 1% 2ml Vial) 2 ml PRN 1X PRN ID PRIOR TO IV START; Start 05/10/20 at 07:00; Stop 05/10/20 at 07:31; Status DC Hydromorphone HCl (Dilaudid) 0.5 mg PRN Q10MIN PRN IV SEV PAIN, Second choice; Start 05/10/20 at 07:00; Stop 05/10/20 at 07:31; Status DC Prochlorperazine Edisylate (Compazine) 5 mg PACU PRN PRN IV NAUSEA, MRX1; Start 05/10/20 at 07:00; Stop 05/10/20 at 07:31; Status DC Sevoflurane (Ultane) 60 ml STK-MED ONCE IH ; Start 05/09/20 at 11:37; Stop 05/09/20 at 11:38; Status DC Propofol (Diprivan) 200 mg STK-MED ONCE IV ; Start 05/09/20 at 11:38; Stop 05/09/20 at 11:38; Status DC Lidocaine HCl (Lidocaine Pf 2% Vial) 5 ml STK-MED ONCE .ROUTE ; Start 05/09/20 at 11:38; Stop 05/09/20 at 11:38; Status DC Dexamethasone Sodium Phosphate (Decadron) 4 mg STK-MED ONCE .ROUTE ; Start 05/09/20 at 11:38; Stop 05/09/20 at 11:38; Status DC Ondansetron HCl (Zofran) 4 mg STK-MED ONCE .ROUTE ; Start 05/09/20 at 11:38; Stop 05/09/20 at 11:38; Status DC Phenylephrine HCl (Jya-Synephrine Inj) 10 mg STK-MED ONCE .ROUTE ; Start 05/09/20 at 11:38; Stop 05/09/20 at 11:38; Status DC Tranexamic Acid 1000 mg/Sodium Chloride 60 ml @ 60 mls/hr 1X PERIOP ONCE INJ ; Start 05/09/20 at 12:30; Stop 05/09/20 at 13:29; Status DC Tranexamic Acid 1000 mg/Sodium Chloride 60 ml @ 60 mls/hr 1X PERIOP ONCE INJ ; Start 05/09/20 at 14:30; Stop 05/09/20 at 15:29; Status DC Ephedrine Sulfate (Akovaz) 50 mg STK-MED ONCE .ROUTE ; Start 05/09/20 at 13:10; Stop 05/09/20 at 13:10; Status DC Morphine Sulfate (Morphine Sulfate) 2 mg PRN Q1HR PRN IVP SEVERE PAIN 7-10; Start 05/09/20 at 13:15 Fentanyl Citrate (Fentanyl 2ml Vial) 25 mcg PRN Q1HR PRN IVP SEVERE PAIN 7-10; Start 05/09/20 at 13:15 Multivitamins (Thera M Plus) 1 tab DAILY PO Last administered on 05/10/20at 08:43; Start 05/10/20 at 09:00 Senna/Docusate Sodium (Senna Plus) 1 tab DAILY PO Last administered on 05/10/20at 08:43; Start 05/10/20 at 09:00 Polyethylene Glycol (miraLAX PACKET) 17 gm PRN DAILY PRN PO CONSTIPATION; Start 05/09/20 at 13:15 Ferrous Sulfate (Feosol) 325 mg BIDWMEALS PO Last administered on 05/10/20at 16:56; Start 05/09/20 at 17:00 Vitamin D (Vitamin D3) 1,000 unit DAILY PO Last administered on 05/10/20at 08:43; Start 05/10/20 at 09:00 Sodium Chloride 1,000 ml @ 75 mls/hr [id number] IV Last administered on 05/09/20at 15:10; Start 05/09/20 at 13:15; Stop 05/10/20 at 09:03; Status DC Ondansetron HCl (Zofran) 4 mg PRN Q4HRS PRN IVP NAUSEA/VOMITING; Start 05/09/20 at 13:15 Aspirin (Surendra Aspirin) 325 mg BID PO Last administered on 05/10/20at 20:30; Start 05/09/20 at 21:00; Stop 06/08/20 at 20:59 Magnesium Hydroxide (Milk Of Magnesia) 2,400 mg 1X PRN PRN PO CONSTIPATION; Start 05/10/20 at 06:00; Stop 05/11/20 at 05:59; Status DC Bisacodyl (Dulcolax Supp) 10 mg 1X PRN PRN [place] CONSTIPATION; Start 05/10/20 at 16:00; Stop 05/11/20 at 15:59 Dextrose (Dextrose 50%-Water Syringe) 12.5 gm PRN Q15MIN PRN IV SEE COMMENTS; Start 05/09/20 at 13:15 Cefazolin Sodium/ Dextrose 50 ml @ 100 mls/hr Q6H IV Last administered on 05/10/20at 05:15; Start 05/09/20 at 18:00; Stop 05/10/20 at 06:29; Status DC Oxycodone/ Acetaminophen (Percocet 5/325) 1 tab PRN Q4HRS PRN PO MODERATE PAIN Last administered on 05/10/20at 16:56; Start 05/09/20 at 13:15 Oxycodone/ Acetaminophen (Percocet 5/325) 2 tab PRN Q4HRS PRN PO SEVERE PAIN Last administered on 05/11/20at 03:06; Start 05/09/20 at 13:30 Active Scripts Active Hydroxychloroquine Sulfate 200 Mg Tablet 400 Mg PO DAILY 30 Days Polyethylene Glycol 3350 17 Gm Powd.pack 17 Gm PO DAILY 30 Days Diclofenac Sodium 50 Mg Tablet.dr 1 Tab PO BID Reported Melatonin 3 Mg Tablet 1 Tab PO QHS Kapspargo Sprinkle (Metoprolol Succinate) 50 Mg Cap.spr.24 50 Mg PO DAILY Meloxicam 7.5 Mg Tablet 1 Tab PO DAILY Lisinopril 10 Mg Tablet 1 Tab PO DAILY Levothyroxine Sodium 50 Mcg Tablet 1 Tab PO DAILY Cymbalta (Duloxetine Hcl) 60 Mg Capsule. 1 Cap PO DAILY Clonazepam 2 Mg Tablet 2 Mg PO BID Vitamin D3 (Cholecalciferol (Vitamin D3)) 1,000 Unit Tablet 1 Tab PO DAILY Centrum Silver Tablet (Multivits-Min/Fa/Lycopene/Lut) 1 Each Tablet 1 Each PO DAILY LAST DOSE THIS AM NEXT DOSE TOMORROW AM Fish Oil 1,000 Mg Softgel ([place]-3 Fatty Acids/Fish Oil) 1 Each Capsule 1 Each PO DAILY LAST DOSE THIS AM NEXT DOSE TOMORROW AM Combivent Respimat Inhal (Ipratropium/Albuterol Sulfate) 4 Gm Aer.w.adap 1 Inh IH QID MAY RESUME WHEN AT HOME Pantoprazole Sodium (Pantoprazole Sodium) 40 Mg Tablet. 1 Tab PO DAILY LAST DOSE THIS AM NEXT DOSE TOMORROW AM Albuterol Sulfate Conc Neb Soln (Albuterol Sulfate) 2.5 Mg/0.5 Ml Vial.neb 1 Vial NEB BID LAST DOSE THIS AM NEXT DOSE TONIGHT Aspir 81 (Aspirin) 81 Mg Tablet. 81 Mg PO LAST DOSE THIS AM NEXT DOSE TOMOOROW AM Vitals/I & O Vital Sign - Last 24 Hours 05/10/20 05/10/20 05/10/20 05/10/20 08:00 08:43 08:44 09:18 Pulse 71 71 B/P (MAP) 109/44 109/44 O2 Delivery Nasal Cannula Nasal Cannula O2 Flow Rate 2.0 05/10/20 05/10/20 05/10/20 05/10/20 10:18 11:00 11:00 15:00 Temp 97.8 98.2 97.8 98.2 Pulse 76 62 Resp 18 16 B/P (MAP) 92/47 (62) 102/45 (64) 105/39 (61) Pulse Ox 96 90 O2 Delivery Nasal Cannula Nasal Cannula Nasal Cannula O2 Flow Rate 2.0 2.0 05/10/20 05/10/20 05/10/20 05/10/20 16:56 18:06 19:00 20:00 Temp 98.1 98.1 Pulse 88 Resp 18 B/P (MAP) 133/52 (79) Pulse Ox 93 O2 Delivery Nasal Cannula Nasal Cannula Nasal Cannula Nasal Cannula O2 Flow Rate 2.0 05/10/20 05/10/20 05/11/20 05/11/20 20:42 23:00 03:06 03:06 Temp 98.0 98.3 98.0 98.3 Pulse 60 66 Resp 17 20 17 B/P (MAP) 99/49 (66) 108/51 (70) Pulse Ox 98 97 96 O2 Delivery Nasal Cannula Nasal Cannula Nasal Cannula Nasal Cannula O2 Flow Rate 2.0 05/11/20 06:59 Pulse Ox 97 O2 Delivery Nasal Cannula O2 Flow Rate 2.0 Intake and Output 05/10/20 05/10/20 05/11/20 15:00 23:00 07:00 Intake Total 420 ml 260 ml Output Total 1200 ml Balance 420 ml 260 ml -1200 ml Nutrition Consultation Dietary Evaluation: Recommendations by RD: Dietary education by RD, Increase Calorie Intake, Protein supplementation Comments: REC mech soft, cardiac diet with mixed curry flavor magic cup bid REC mvi and vit c for wound healing Expected Outcomes/Goals: to meet >75% est nutr needs via po intake Malnutrition Findings: Body Fat Depletion (Non Severe: Mild Depletion Weight Status: Obese Justicifation of Admission Dx: Justifications for Admission: Justification of Admission Dx: Yes NELI ROBLES MD May 11, 2020 07:55
[2020-05-11] MEDS: MULTIVITAMIN with MINERAL TABLET. PO SCH (08:36)
[2020-05-11] MEDS: POLYETHYLENE GLYCOL 3350 17 GM PACKET. PO SCH (08:36)
[2020-05-11] MEDS: clonazePAM 0.5 MG TABLET PO SCH ×2 (08:36→21:14)
[2020-05-11] MEDS: SENNOSIDES/DOCUSATE 8.6/50MG TABLET. PO SCH (08:36)
[2020-05-11] MEDS: CHOLECALCIFEROL (VITAMIN D3) 1,000 UNIT TABLET PO SCH (08:37)
[2020-05-11] MEDS: LISINOPRIL 10 MG TABLET PO SCH (08:37)
[2020-05-11] MEDS: METOPROLOL SUCC 24HR ER 50 MG TAB.ER.24H. PO SCH (08:37)
[2020-05-11] MEDS: ASPIRIN 325 MG TABLET PO SCH ×2 (08:37→21:14)
[2020-05-11] MEDS: DULoxetine HCL 30 MG CAPSULE.DR PO SCH (08:37)
[2020-05-11] MEDS: FERROUS SULFATE 325 MG TABLET. PO SCH ×2 (08:37→16:51)
[2020-05-11 11:00] VITALS: BP 111/56
--- NOTE | 2020-05-11 14:42 | PDOC ---
PROGRESS NOTES Date of Service DATE: 05/11/20 TIME: 14:41 Subjective Subjective Doing better regarding hip pain after surgery. Objective Vital Signs Vital Signs Date Time Temp Pulse Resp B/P (MAP) Pulse Ox O2 Delivery O2 Flow Rate FiO2 05/11/20 14:28 Room Air 05/11/20 11:00 97.6 65 16 111/56 (74) 96 2.0 97.6 Physical Exam Hip dressing is dry. She was lying in a chair without difficulty. Calf is soft and nontender. She seems neurovascularly intact, able to dorsiflex and plantarflex the foot with good capillary refill and no evidence of neurovascular injury nor DVT. Labs Laboratory Tests Test 05/10/20 08:34 Hemoglobin 7.7 g/dL (12.0-15.5) Hematocrit 23.1 % (36.0-47.0) Mean Corpuscular Hemoglobin Concent 33 g/dL (31-37) Assessment Assessment POD#2 after hip intramedullary nail Plan Plan of Care Partial weightbearing, 50%. DVT prophylaxis. Office follow-up in 2 weeks. Justicifation of Admission Dx: Justifications for Admission: Justification of Admission Dx: Yes JORGE LUIS PLATA MD May 11, 2020 14:42
[2020-05-11 15:45] VITALS: BP 118/61
--- NOTE | 2020-05-11 15:45 | NUR ---
Patient transferred to room 408. Report given to Tobias Alcocer. All belongings taken with patient.
--- NOTE | 2020-05-11 15:48 | NUR ---
Pt. here from 502 into 408 per bed. Rates pain at 6/10 with a goal of 0.
[2020-05-11 19:16] VITALS: BP 110/68
[2020-05-11 22:24] VITALS: BP 137/58
[2020-05-12] VITALS (7 sets, daily range): BP systolic 92–126; BP diastolic 52–58
[2020-05-12] MEDS: LEVOTHYROXINE 50 MCG TABLET PO SCH (06:28)
[2020-05-12] MEDS: oxyCODONE/APAP 5/325 1 TAB TABLET PO PRN ×3 (06:29→21:54)
[2020-05-12] MEDS: ALBUTEROL SULFATE 2.5 MG/3 ML NEBU. NEB SCH ×2 (08:00→20:00)
[2020-05-12] MEDS: FERROUS SULFATE 325 MG TABLET. PO SCH ×2 (08:21→17:26)
[2020-05-12] MEDS: METOPROLOL SUCC 24HR ER 50 MG TAB.ER.24H. PO SCH (08:22)
[2020-05-12] MEDS: MULTIVITAMIN with MINERAL TABLET. PO SCH (08:22)
[2020-05-12] MEDS: ASPIRIN 325 MG TABLET PO SCH ×2 (08:22→21:55)
[2020-05-12] MEDS: CHOLECALCIFEROL (VITAMIN D3) 1,000 UNIT TABLET PO SCH (08:25)
[2020-05-12] MEDS: SENNOSIDES/DOCUSATE 8.6/50MG TABLET. PO SCH (08:25)
[2020-05-12] MEDS: DULoxetine HCL 30 MG CAPSULE.DR PO SCH (08:25)
[2020-05-12] MEDS: clonazePAM 0.5 MG TABLET PO SCH ×2 (08:25→21:55)
[2020-05-12] MEDS: POLYETHYLENE GLYCOL 3350 17 GM PACKET. PO SCH (08:26)
[2020-05-12] MEDS: LISINOPRIL 10 MG TABLET PO SCH (08:33)
--- NOTE | 2020-05-12 10:40 | NUR ---
SW following. Discussed with RN, pt from home alone, 2L, soft mechanical diet, COVID-19 negative. PT/OT recommending SNU. СВЕТЛАНА met with pt (no isolation precautions at the time), pt does not want referral to [facility], but wants referral to [facility]. СВЕТЛАНА phoned and faxed referral to [facility] (ph: [phone], fax: [phone]). They are currently taking admissions. Awaiting acceptance decision - pt could potentially discharge today. СВЕТЛАНА will continue to follow. Addendum: 05/12/20 at 1441 by SVITLANA SOTOMAYOR Pt accepted at [facility], they will have a bed tomorrow (05/13/20). Tentative molded goods spot picker time scheduled for 10am tomorrow. RN and Dr. Stahl notified.
[2020-05-12 11:43] LABS: BASO # 0.1 x10^3/uL (0.0-0.2); BASO % 1 % (0-3); EOS # 0.5 x10^3/uL (0.0-0.7); EOS % 4 % (0-3); HEMATOCRIT 23.1 % (36.0-47.0); HEMOGLOBIN 7.4 g/dL (12.0-15.5); LYMPH % 17 % (24-48); MEAN CORPUSCULAR HEMOGLOBIN 28 pg (25-35); MEAN CORPUSCULAR HGB CONC 32 g/dL (31-37); MEAN CORPUSCULAR VOLUME 87 fL (79-100); MONO # 1.2 x10^3/uL (0.0-1.1); MONO % 10 % (0-9); NEUT # 8.1 x10^3/uL (1.8-7.7); NEUT % 69 % (31-73); PLATELET COUNT 227 x10^3/uL (140-400); RED BLOOD COUNT 2.66 x10^6/uL (3.50-5.40); RED CELL DISTRIBUTION WIDTH 14.8 % (11.5-14.5); WHITE BLOOD COUNT 11.8 x10^3/uL (4.0-11.0)
[2020-05-12 12:03] LABS: CALCIUM 8.7 mg/dL (8.5-10.1); CREATININE 0.7 mg/dL (0.6-1.0); GFR 81.8; POTASSIUM 5.4 mmol/L (3.5-5.1)
--- NOTE | 2020-05-12 13:51 | PDOC ---
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 She was reportedly returning equipment from sleep study today, when she had a ground-level fall landing on her right side. She began planing of right hip pain at that time, 02/08. She states she is chronically weak in her lower extremities, and normally ambulates with a walker. She does admit to associated head injury, and is not on blood thinners. Upon arrival in the ER there is obvious deformity and externally rotated right leg. X-ray shows displaced right femoral neck fracture. Will admit patient for further medical management with orthopedic consultation. 05/10: No acute events reported overnight, case discussed with nursing staff patient in no acute distress no complaints during my visit 05/11: Patient resting peacefully in bed in no acute distress. No pain during my encounter, patient will require alf facility as per notes from physical therapy. No acute events reported overnight 05/12/2020 No acute events overnight. No complaints voiced at this time. Postop day 3 dressings are clear dry and intact. Patient's chart, labs, images were reviewed and discussed with RN Vitals/I&O Vitals/I&O: Vital Signs Date Time Temp Pulse Resp B/P (MAP) Pulse Ox O2 Delivery O2 Flow Rate FiO2 05/12/20 12:59 Room Air 05/12/20 11:00 97.9 75 16 92/57 (69) 83 2.0 97.9 I & O 05/11/20 05/11/20 05/12/20 15:00 23:00 07:00 Intake Total 240 ml 200 ml 0 ml Output Total 50 ml Balance 240 ml 150 ml 0 ml Physical Exam Physical Exam: General: Alert, Oriented X3, Cooperative, moderate distress HEENT: PERRLA, EOMI Lungs: Clear to auscultation, Normal air movement Heart: RRR, no murmurs Cardiovascular: S1, S2 Abdomen: Normal bowel sounds, Soft, No tenderness Extremities: Shortened and externally rotated right leg. No clubbing, No cyanosis. Skin: No rashes, No significant lesion Neuro: Normal speech, Normal tone, Sensation intact Psych/Mental Status: Mental status NL, Mood NL Labs Labs: Laboratory Tests Test 05/12/20 11:13 White Blood Count 11.8 x10^3/uL (4.0-11.0) Red Blood Count 2.66 x10^6/uL (3.50-5.40) Hemoglobin 7.4 g/dL (12.0-15.5) Hematocrit 23.1 % (36.0-47.0) Mean Corpuscular Volume 87 fL (79-100) Mean Corpuscular Hemoglobin 28 pg (25-35) Mean Corpuscular Hemoglobin Concent 32 g/dL (31-37) Red Cell Distribution Width 14.8 % (11.5-14.5) Platelet Count 227 x10^3/uL (140-400) Neutrophils (%) (Auto) 69 % (31-73) Lymphocytes (%) (Auto) 17 % (24-48) Monocytes (%) (Auto) 10 % (0-9) Eosinophils (%) (Auto) 4 % (0-3) Basophils (%) (Auto) 1 % (0-3) Neutrophils # (Auto) 8.1 x10^3/uL (1.8-7.7) Lymphocytes # (Auto) 2.0 x10^3/uL (1.0-4.8) Monocytes # (Auto) 1.2 x10^3/uL (0.0-1.1) Eosinophils # (Auto) 0.5 x10^3/uL (0.0-0.7) Basophils # (Auto) 0.1 x10^3/uL (0.0-0.2) Sodium Level 135 mmol/L (136-145) Potassium Level 5.4 mmol/L (3.5-5.1) Chloride Level 100 mmol/L (98-107) Carbon Dioxide Level 33 mmol/L (21-32) Anion Gap 2 (6-14) Blood Urea Nitrogen 14 mg/dL (7-20) Creatinine 0.7 mg/dL (0.6-1.0) Estimated GFR (Cockcroft-Gault) 81.8 Glucose Level 110 mg/dL (70-99) Calcium Level 8.7 mg/dL (8.5-10.1) Assessment and Plan Assessmemt and Plan Problems Medical Problems: (1) Closed head injury Status: Acute (2) Closed right hip fracture Status: Acute (3) Hyperkalemia Status: Acute (4) Hyponatremia Status: Acute Comment Review of Relevant I have reviewed the following items malik (where applicable) has been applied. Justifications for Admission Other Justification Right hip fracture ALLIE TOUSSAINT MD May 12, 2020 13:51
--- NOTE | 2020-05-12 14:43 | SNU/HH DC ---
DISCHARGE ORDERS DISCHARGE INFORMATION: DISCHARGE DATE: May 12, 2020 FINAL DIAGNOSIS Problems Medical Problems: (1) Closed head injury Status: Acute (2) Closed right hip fracture Status: Acute (3) Hyperkalemia Status: Acute (4) Hyponatremia Status: Acute CONDITION ON DISCHARGE: Stable CODE STATUS: Code Status: Full FDC: SNF STAY <30 DAYS: Yes POST DISCHARGE ORDERS: ACTIVITY ORDERS: Activity as tolerated WEIGHT BEARING STATUS: As tolerated BATHING ORDERS: Shower-keep dressing dry, No Tub Bath until see DIET AFTER DISCHARGE: Cardiac WOUND/INCISION CARE: No wound care needed FOLLOW-UP: PHYSICIAN FOLLOW-UP: PCP within 2 weeks of discharge ADDITIONAL FOLLOW-UP: Orthopedic surgery for postoperative patient's chart, labs, images were rev LAB ORDERS FOR FOLLOW-UP: CBC, CMP within 1 week at discharge TREATMENT/EQUIPMENT ORDERS: ADAPTIVE EQUIPMENT NEEDED: None Physical Therapy For: Evalulation/Treatment Occupational Therapy For: Evaluation/Treatment DISCHARGE MEDICATIONS: Home Meds Active Scripts Hydroxychloroquine Sulfate (HYDROXYCHLOROQUINE SULFATE) 200 Mg Tablet, 400 MG PO DAILY for RA for 30 Days, #60 TAB Prov:Deirdre QUINTEROS MD 08/01/18 Polyethylene Glycol 3350 (POLYETHYLENE GLYCOL 3350) 17 Gm Powd.pack, 17 GM PO DAILY for constipation for 30 Days, #30 PKT Prov:Deirdre QUINTEROS MD 08/01/18 Reported Medications Melatonin (MELATONIN) 3 Mg Tablet, 1 TAB PO QHS for sleep, #30 TAB 05/08/20 Metoprolol Succinate (Kapspargo Sprinkle) 50 Mg Cap.spr.24, 50 MG PO DAILY for hypertension 05/08/20 Meloxicam (MELOXICAM) 7.5 Mg Tablet, 1 TAB PO DAILY for inflammation 05/08/20 Lisinopril (LISINOPRIL) 10 Mg Tablet, 1 TAB PO DAILY for hypertension 05/08/20 Levothyroxine Sodium (LEVOTHYROXINE SODIUM) 50 Mcg Tablet, 1 TAB PO DAILY for hypothyroidism 05/08/20 Duloxetine Hcl (CYMBALTA) 60 Mg Capsule.dr, 1 CAP PO DAILY, #90 CAP 3 Refills 09/08/17 Clonazepam (CLONAZEPAM) 2 Mg Tablet, 2 MG PO BID, TAB 09/08/17 Cholecalciferol (Vitamin D3) (VITAMIN D3) 1,000 Unit Tablet, 1 TAB PO DAILY, #30 TAB 5 Refills 03/10/15 Multivits-Min/Fa/Lycopene/Lut (CENTRUM SILVER TABLET) 1 Each Tablet, 1 EACH PO DAILY for SUPPLEMENT LAST DOSE THIS AM NEXT DOSE TOMORROW AM 07/10/14 [place]-3 Fatty Acids/Fish Oil (FISH OIL 1,000 MG SOFTGEL) 1 Each Capsule, 1 EACH PO DAILY for SUPPLEMENT LAST DOSE THIS AM NEXT DOSE TOMORROW AM 07/10/14 Ipratropium/Albuterol Sulfate (COMBIVENT RESPIMAT INHAL) 4 Gm Aer.w.adap, 1 INH IH QID for LUNGS, INHALER MAY RESUME WHEN AT HOME 02/28/14 Pantoprazole Sodium (PANTOPRAZOLE SODIUM ) 40 Mg Tablet.dr, 1 TAB PO DAILY for STOMACH, #30 TAB 3 Refills LAST DOSE THIS AM NEXT DOSE TOMORROW AM 02/28/14 Albuterol Sulfate (ALBUTEROL SULFATE CONC NEB SOLN) 2.5 Mg/0.5 Ml Vial.neb, 1 VIAL NEB BID for LUNGS, #120 VIAL 5 Refills LAST DOSE THIS AM NEXT DOSE TONIGHT 02/28/14 Aspirin (ASPIR 81) 81 Mg Tablet.dr, 81 MG PO for BLOOD THINNER, TAB LAST DOSE THIS AM NEXT DOSE TOMOOROW AM 08/15/13 Discontinued Scripts Diclofenac Sodium (DICLOFENAC SODIUM) 50 Mg Tablet., 1 TAB PO BID, #10 TAB 0 Refills Prov:CODY CORADO APRN 06/23/18 ALLIE TOUSSAINT MD May 12, 2020 14:43
[2020-05-13 02:47] VITALS: BP 113/59
[2020-05-13] MEDS: LEVOTHYROXINE 50 MCG TABLET PO SCH (06:42)
[2020-05-13] MEDS: oxyCODONE/APAP 5/325 1 TAB TABLET PO PRN (06:48)
[2020-05-13 07:00] VITALS: BP 93/63
[2020-05-13] MEDS: ALBUTEROL SULFATE 2.5 MG/3 ML NEBU. NEB SCH (07:39)
--- NOTE | 2020-05-13 07:56 | NUR ---
Patient's O2 sat level dropped as low at 77% after rechecking when RT came in to see her. Patient was put on 3L and sat level went up to about 90. RT turned O2 up to 6L and patient's sat level is now about 95%, will continue to monitor.
--- NOTE | 2020-05-13 08:54 | NUR ---
Paged at [phone], Dr Stahl returned page at [phone] and ordered CBC, CMP. ABG was requested then cancelled at Dr Stahl's request.
--- NOTE | 2020-05-13 09:37 | NUR ---
SW following. Discussed with RN, pt accepted at [facility]. Pt very drowsy this morning, Dr. Stahl requested pickle maker time be pushed back. New pickle maker time arranged for between 1430 -1500. RN notified. СВЕТЛАНА faxed discharge orders to [facility]. СВЕТЛАНА will continue to follow.
[2020-05-13 11:00] VITALS: BP 120/64
[2020-05-13] MEDS: FERROUS SULFATE 325 MG TABLET. PO SCH (12:29)
[2020-05-13] MEDS: ASPIRIN 325 MG TABLET PO SCH (12:29)
[2020-05-13] MEDS: POLYETHYLENE GLYCOL 3350 17 GM PACKET. PO SCH (12:29)
[2020-05-13] MEDS: CHOLECALCIFEROL (VITAMIN D3) 1,000 UNIT TABLET PO SCH (12:29)
[2020-05-13] MEDS: SENNOSIDES/DOCUSATE 8.6/50MG TABLET. PO SCH (12:29)
[2020-05-13] MEDS: MULTIVITAMIN with MINERAL TABLET. PO SCH (12:29)
[2020-05-13 15:00] VITALS: BP 123/64
--- NOTE | 2020-05-13 15:36 | NUR ---
Called in report to Pascual Haynes of , report was given to Mehrdad at [phone]
--- NOTE | 2020-05-15 15:36 | PDOC3 ---
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 She was reportedly returning equipment from sleep study today, when she had a ground-level fall landing on her right side. She began planing of right hip pain at that time, 02/08. She states she is chronically weak in her lower extremities, and normally ambulates with a walker. She does admit to associated head injury, and is not on blood thinners. Upon arrival in the ER there is obvious deformity and externally rotated right leg. X-ray shows displaced right femoral neck fracture. Will admit patient for further medical management with orthopedic consultation. 05/10: No acute events reported overnight, case discussed with nursing staff patient in no acute distress no complaints during my visit 05/11: Patient resting peacefully in bed in no acute distress. No pain during my encounter, patient will require [facility] facility as per notes from physical therapy. No acute events reported overnight 05/12/2020 No acute events overnight. No complaints voiced at this time. Postop day 3 dressings are clear dry and intact. Patient's chart, labs, images were reviewed and discussed with RN Patient given oxycodone at 0300 and she had some confusion. She will need to avoid narcotics for pain for her entire post-operative course. Patient's mental status improved by the time of her discharge. The rest of her hospital course was uneventful. Activity: Activity: Resume previous activity Medications: Home Meds Active Scripts Hydroxychloroquine Sulfate (HYDROXYCHLOROQUINE SULFATE) 200 Mg Tablet, 400 MG PO DAILY for RA for 30 Days, #60 TAB Prov:Deirdre QUINTEROS MD 08/01/18 Polyethylene Glycol 3350 (POLYETHYLENE GLYCOL 3350) 17 Gm Powd.pack, 17 GM PO DAILY for constipation for 30 Days, #30 PKT Prov:Deirdre QUINTEROS MD 08/01/18 Reported Medications Melatonin (MELATONIN) 3 Mg Tablet, 1 TAB PO QHS for sleep, #30 TAB 05/08/20 Metoprolol Succinate (Kapspargo Sprinkle) 50 Mg Cap.spr.24, 50 MG PO DAILY for hypertension 05/08/20 Meloxicam (MELOXICAM) 7.5 Mg Tablet, 1 TAB PO DAILY for inflammation 05/08/20 Lisinopril (LISINOPRIL) 10 Mg Tablet, 1 TAB PO DAILY for hypertension 05/08/20 Levothyroxine Sodium (LEVOTHYROXINE SODIUM) 50 Mcg Tablet, 1 TAB PO DAILY for hypothyroidism 05/08/20 Duloxetine Hcl (CYMBALTA) 60 Mg Capsule.dr, 1 CAP PO DAILY, #90 CAP 3 Refills 09/08/17 Clonazepam (CLONAZEPAM) 2 Mg Tablet, 2 MG PO BID, TAB 09/08/17 Cholecalciferol (Vitamin D3) (VITAMIN D3) 1,000 Unit Tablet, 1 TAB PO DAILY, #30 TAB 5 Refills 03/10/15 Multivits-Min/Fa/Lycopene/Lut (CENTRUM SILVER TABLET) 1 Each Tablet, 1 EACH PO DAILY for SUPPLEMENT LAST DOSE THIS AM NEXT DOSE TOMORROW AM 07/10/14 Hardin-3 Fatty Acids/Fish Oil (FISH OIL 1,000 MG SOFTGEL) 1 Each Capsule, 1 EACH PO DAILY for SUPPLEMENT LAST DOSE THIS AM NEXT DOSE TOMORROW AM 07/10/14 Ipratropium/Albuterol Sulfate (COMBIVENT RESPIMAT INHAL) 4 Gm Aer.w.adap, 1 INH IH QID for LUNGS, INHALER MAY RESUME WHEN AT HOME 02/28/14 Pantoprazole Sodium (PANTOPRAZOLE SODIUM ) 40 Mg Tablet., 1 TAB PO DAILY for STOMACH, #30 TAB 3 Refills LAST DOSE THIS AM NEXT DOSE TOMORROW AM 02/28/14 Albuterol Sulfate (ALBUTEROL SULFATE CONC NEB SOLN) 2.5 Mg/0.5 Ml Vial.neb, 1 VIAL NEB BID for LUNGS, #120 VIAL 5 Refills LAST DOSE THIS AM NEXT DOSE TONIGHT 02/28/14 Aspirin (ASPIR 81) 81 Mg Tablet.dr, 81 MG PO for BLOOD THINNER, TAB LAST DOSE THIS AM NEXT DOSE TOMOOROW AM 08/15/13 Discontinued Scripts Diclofenac Sodium (DICLOFENAC SODIUM) 50 Mg Tablet., 1 TAB PO BID, #10 TAB 0 Refills Prov:MARTINUNGCODY Dowling APRN 06/23/18 Scheduled Albuterol Sulfate (Albuterol Sulfate Conc Neb Soln), 1 VIAL NEB BID, (Reported) Cholecalciferol (Vitamin D3) (Vitamin D3), 1 TAB PO DAILY, (Reported) Clonazepam (Clonazepam), 2 MG PO BID, (Reported) Duloxetine Hcl (Cymbalta), 1 CAP PO DAILY, (Reported) Hydroxychloroquine Sulfate (Hydroxychloroquine Sulfate), 400 MG PO DAILY Ipratropium/Albuterol Sulfate (Combivent Respimat Inhal), 1 INH IH QID, (Reported) Levothyroxine Sodium (Levothyroxine Sodium), 1 TAB PO DAILY, (Reported) Lisinopril (Lisinopril), 1 TAB PO DAILY, (Reported) Melatonin (Melatonin), 1 TAB PO QHS, (Reported) Meloxicam (Meloxicam), 1 TAB PO DAILY, (Reported) Metoprolol Succinate (Kapspargo Sprinkle), 50 MG PO DAILY, (Reported) Multivits-Min/Fa/Lycopene/Lut (Centrum Silver Tablet), 1 EACH PO DAILY, (Reported) Hardin-3 Fatty Acids/Fish Oil (Fish Oil 1,000 Mg Softgel), 1 EACH PO DAILY, (Reported) Pantoprazole Sodium (Pantoprazole Sodium ), 1 TAB PO DAILY, (Reported) Polyethylene Glycol 3350 (Polyethylene Glycol 3350), 17 GM PO DAILY Miscellaneous Medications Aspirin (Aspir 81), 81 MG PO, (Reported) Discontinued Medications Diclofenac Sodium (Diclofenac Sodium), 1 TAB PO BID Total Time: Total Time: Total time spent was 50 minutes in preparing scripts, discharge planning with SW and RN, and preparing this discharge summary. Patient seen and examined on day of discharge. Justicifation of Admission Dx: Justifications for Admission: Justification of Admission Dx: Yes ALLIE TOUSSAINT MD May 15, 2020 15:36
== END 2020-05-13 15:25 | DRG 481 ==
LOC: ER 10:28 → 5 NORTH 11:45 → 4 NORTH 05-11 15:47
PROVIDERS: ADMIT Internal Medicine; ATTEND Internal Medicine
PROC: 0QS606Z Reposition Right Upper Femur with Intramedullary Internal Fixation Device, Open Approach (ICD-10-PCS; principal; 2020-05-09 12:00)
DX: S72.041A Displaced fracture of base of neck of right femur, initial encounter for closed fracture (principal); E22.2 Syndrome of inappropriate secretion of antidiuretic hormone; S72.143A Displaced intertrochanteric fracture of unspecified femur, initial encounter for closed fracture; E87.5 Hyperkalemia; E03.9 Hypothyroidism, unspecified; I10 Essential (primary) hypertension; I73.9 Peripheral vascular disease, unspecified; J44.9 Chronic obstructive pulmonary disease, unspecified; M06.9 Rheumatoid arthritis, unspecified; M47.9 Spondylosis, unspecified; M48.02 Spinal stenosis, cervical region; S09.90XA Unspecified injury of head, initial encounter; Z82.49 Family history of ischemic heart disease and other diseases of the circulatory system; Z90.49 Acquired absence of other specified parts of digestive tract; Z96.659 Presence of unspecified artificial knee joint; F32.9 Major depressive disorder, single episode, unspecified; F41.9 Anxiety disorder, unspecified; K21.9 Gastro-esophageal reflux disease without esophagitis; K57.90 Diverticulosis of intestine, part unspecified, without perforation or abscess without bleeding; M19.90 Unspecified osteoarthritis, unspecified site; W18.39XA Other fall on same level, initial encounter; Y93.89 Activity, other specified; Y92.89 Other specified places as the place of occurrence of the external cause; Y99.8 Other external cause status; Z20.822 Contact with and (suspected) exposure to COVID-19
CPT/HCPCS: 36415; 70450; 71045; 72125; 73502; 76000; 80048; 80053; 81001; 82306; 85014; 85018; 85025; 85027; 85610; 86850; 86900; 86901; 87426; 93005; 94640; 94760; 96374; 96375; C1713; C1887; G0399; J0171; J0690; J1100; J1644; J2270; J2274; J2370; J2405; J2704; J2795; J3010; J3490; J7030; J7120; U0003; 97110-GP; 97530-GO; 97530-GP; 97535-GO; 99285-25; G0378; J7613

== ENCOUNTER 2020-08-23 12:09 | Emergency (ER) | payer MEDICARE, MEDICAID ==
[~2020-08-23] VITALS: Ht 160 cm; Wt 86.0 kg
[~2020-08-23 12:09] MED LIST changes: +LEVO50TA5 PO; +LISI10TA16 PO; +MELA3TAB4 PO; +METO50CA PO
--- NOTE | 2020-08-23 12:33 | PHYS DOC ---
Past Medical History Past Medical History: Anxiety, Asthma, COPD, Depression, GERD, Hypertension, Other Additional Past Medical Histor: thyroid issue, SLEEP APNEA Past Surgical History: Appendectomy, Cholecystectomy, Knee Replacement Additional Past Surgical Histo: left rotator cuff X 3,hernia, RIGHT FEMUR, L ANKLE HARDWARE, CATAR Smoking Status: Never Smoker Alcohol Use: None Drug Use: None Adult General Chief Complaint Chief Complaint: MECHANICAL FALL HPI HPI Patient is a 74 year old female with a past medical history of asthma, COPD, depression, hypertension now presenting emergency department complaining after fall. Patient states she was ambulating to the kitchen to get another couple coffee when she thinks that she slipped on the floor because she was not wearing her shoes. Patient states that she fell onto her right side and right hip. Patient is denying any pain at this time but states that she took a pain pill this morning and is concerned that is masking her symptoms. Denies any head injury, loss of conscious, nausea, vomiting, chest pain, shortness of breath or dizziness. Denies any preceding symptoms. Review of Systems Review of Systems Constitutional: Denies fever or chills [] Eyes: Denies change in visual acuity, redness, or eye pain [] HENT: Denies nasal congestion or sore throat [] Respiratory: Denies cough or shortness of breath [] Cardiovascular: No additional information not addressed in HPI [] GI: Denies abdominal pain, nausea, vomiting, bloody stools or diarrhea [] : Denies dysuria or hematuria [] Musculoskeletal: Denies back pain or joint pain [] Integument: Denies rash or skin lesions [] Neurologic: Denies headache, focal weakness or sensory changes [] Endocrine: Denies polyuria or polydipsia [] All other systems were reviewed and found to be within normal limits, except as documented in this note. Allergies Allergies Allergies Coded Allergies Type Severity Reaction Last Updated Verified Sulfa (Sulfonamide Antibiotics) Allergy Intermediate 03/10/15 Yes hydrochlorothiazide Allergy Intermediate 09/08/17 Yes Physical Exam Physical Exam Constitutional: Well developed, well nourished, no acute distress, non-toxic appearance. [] HENT: Normocephalic, atraumatic, bilateral external ears normal, oropharynx moist, no oral exudates, nose normal. [] Eyes: PERRLA, EOMI, conjunctiva normal, no discharge. [] Neck: Normal range of motion, no tenderness, supple, no stridor. [] Cardiovascular:Heart rate regular rhythm, no murmur [] Lungs & Thorax: Bilateral breath sounds clear to auscultation [] Abdomen: Bowel sounds normal, soft, no tenderness, no masses, no pulsatile masses. [] Skin: Warm, dry, no erythema, no rash. [] Back: No tenderness, no CVA tenderness. [] Extremities: No tenderness, no cyanosis, no clubbing, ROM intact, no edema. [] Neurologic: Alert and oriented X 3, normal motor function, normal sensory function, no focal deficits noted. [] Psychologic: Affect normal, judgement normal, mood normal. [] Current Patient Data Vital Signs Vital Signs Date Time Temp Pulse Resp B/P (MAP) Pulse Ox O2 Delivery O2 Flow Rate FiO2 08/23/20 12:22 99.3 69 18 197/92 (127) 93 Room Air 99.3 EKG EKG [] Radiology/Procedures Radiology/Procedures EXAM: Right hip and pelvis, 3 views. HISTORY: Fall. COMPARISON: 08/05/2020 FINDINGS: A frontal view of the pelvis and frontal and lateral views of the right hip are obtained. There is internal fixation of a right femoral intertrochanteric fracture. There has been no significant interval healing along the main fracture lines. There is no evidence of new fracture. There is degenerative change involving the lower lumbar spine and there is lumbar scoliosis. There are pelvic phleboliths. IMPRESSION: Internal fixation of a right femoral intertrochanteric fracture. There has been no significant interval healing compared to the prior exam. Electronically signed by: Xochitl Perdomo MD (08/23/2020 1:14 PM) [id number] Course & Med Decision Making Course & Med Decision Making Pertinent Labs and Imaging studies reviewed. (See chart for details) 74-year-old female presented to emergency department after a fall. Because of the history recent surgery will obtain x-ray to make sure there is no underlying etiology. If this negative feel the patient be safely discharged Dragon Disclaimer Dragon Disclaimer This electronic medical record was generated, in whole or in part, using a voice recognition dictation system. Departure Departure Impression: Primary Impression: Chronic hip pain Additional Impression: Accident due to mechanical fall without injury Disposition: 01 HOME / SELF CARE / HOMELESS Condition: GOOD Referrals: Deirdre QUINTEROS MD (PCP) Patient Instructions: Fall Prevention and Home Safety Additional Instructions: EMERGENCY DEPARTMENT GENERAL DISCHARGE INSTRUCTIONS Thank you for coming to [facility] Emergency Department (ED) today and trusting us with you care. We trust that you had a positive experience in our Emergency Department. If you wish to speak to the department management, you may call the Director at [phone]. YOUR FOLLOW UP INSTRUCTIONS ARE FOLLOWS: 1. Do you have a private Doctor? If you do not have a private doctor, please ask for a resource list of physicians or clinics that may be able to assist you with follow up care. 2. The Emergency Physicain has interpreted your x-rays. The X-Ray specialist will also review them. If there is a change in the findings, you will be notified in 48 hours when at all possible. 3. A lab test or culture has been done, your results will be reviewed and you will be notified if you need a change in treatment. ADDITIONAL INSTRUCTIONS AND INFORMATION: 1. Your care today has been supervised by a physician who is specially trained in emergency care. Many problems require more than one evaluation for a complete diagnosis and treatment. We recommend that you schedule your follow up appointment as recommended to ensure complete treatment of you illness or injury. If you are unable to obtain follow up care and continue to have a problem, or if your condition worsens, we recommend that you return to the ED. 2. We are not able to safely determine your condition over the phone nor are we able to give sound medical advice over the phone. For these safety reasons, if you call for medical advice we will ask you to come to the ED for further evaluation. 3. If you have any questions regarding these discharge instructions please call the ED at [phone]. SAFETY INFORMATION: In the interest of safety, wellness, and injury prevention; we encourage you to wear your sealbelt, if you smoke; quite smoking, and we encourage family to use a protective helmet for bicycling and other sporting events that present an increased risk for head injury. IF YOUR SYMPTOMS WORSEN OR NEW SYMPTOMS DEVELOP, OR YOU HAVE CONCERNS ABOUT YOUR CONDITION; OR IF YOUR CONDITION WORSENS WHILE YOU ARE WAITING FOR YOUR FOLLOW UP APPOINTMENT; EITHER CONTACT YOUR PRIMARY CARE DOCTOR, THE PHYSICIAN WHOSE NAME AND NUMBER YOU WERE GIVEN, OR RETURN TO THE ED IMMEDIATELY. Problem Qualifiers TAHIRA DIXON MD Aug 23, 2020 12:33
--- NOTE | 2020-08-23 13:17 | RAD ---
EXAM: Right hip and pelvis, 3 views. HISTORY: Fall. COMPARISON: 08/05/2020 FINDINGS: A frontal view of the pelvis and frontal and lateral views of the right hip are obtained. T here is internal fixation of a right femoral intertrochanteric fracture. There has been no significan t interval healing along the main fracture lines. There is no evidence of new fracture. There is dege nerative change involving the lower lumbar spine and there is lumbar scoliosis. There are pelvic phle boliths. IMPRESSION: Internal fixation of a right femoral intertrochanteric fracture. There has been no signif icant interval healing compared to the prior exam. Electronically signed by: Xochitl Perdomo MD (08/23/2020 1:14 PM) [id number]
[2020-08-23 14:16] VITALS: BP 184/77
--- NOTE | 2020-08-23 17:34 | EKG ---
[facility] [address] [place] [address] Test Date: 2020-08-23 Test Time: 12:19:50 Pat Name: SHYANNE RODARTE Department: Room: Gender: F Records Tech: : 1945 Requested By: TAHIRA DIXON Order Number: [id number] Reading MD: Measurements Intervals Grady Rate: 59 P: -62 MN: 172 QRS: -46 QRSD: 102 T: -25 QT: 468 QTc: 468 Interpretive Statements SINUS RHYTHM ABNORMAL LEFT AXIS DEVIATION LEFT ANTERIOR FASCICULAR BLOCK INCOMPLETE RIGHT BUNDLE BRANCH BLOCK T ABNORMALITY IN INFERIOR LEADS ABNORMAL ECG RI6.02 No previous ECG available for comparison
== END 2020-08-23 15:00 | disposition home or self-care (01) ==
LOC: ER 12:09
DX: G89.29 Other chronic pain (principal); M25.551 Pain in right hip; F41.9 Anxiety disorder, unspecified; J44.9 Chronic obstructive pulmonary disease, unspecified; F32.9 Major depressive disorder, single episode, unspecified; K21.9 Gastro-esophageal reflux disease without esophagitis; I10 Essential (primary) hypertension; Z90.49 Acquired absence of other specified parts of digestive tract; Z98.890 Other specified postprocedural states; Z88.2 Allergy status to sulfonamides; Z88.5 Allergy status to narcotic agent; W18.39XA Other fall on same level, initial encounter; Y93.89 Activity, other specified; Y92.89 Other specified places as the place of occurrence of the external cause; Y99.8 Other external cause status
CPT/HCPCS: 73502; 93005; 99283

== ENCOUNTER 2020-09-29 14:01 | Emergency (ER) | payer MEDICARE, MEDICAID ==
[~2020-09-29] VITALS: Ht 160 cm; Wt 81.8 kg
[2020-09-29 14:51] LABS: BILIRUBIN,URINE NEGATIVE (NEG); CLARITY,URINE CLEAR; NITRITE,URINE NEGATIVE (NEG); PH,URINE 7.5 (<5.0-8.0); PROTEIN,URINE NEGATIVE (NEG-TRACE); UROBILINOGEN,URINE 0.2 mg/dL (0.2 mg/dL)
--- NOTE | 2020-09-29 14:54 | PHYS DOC ---
Past Medical History Past Medical History: Anxiety, Asthma, COPD, Depression, GERD, Hypertension, Other Additional Past Medical Histor: thyroid issue, SLEEP APNEA/RA,REYNAUD'S Past Surgical History: Appendectomy, Cholecystectomy, Knee Replacement Additional Past Surgical Histo: left rotator cuff X 3,hernia, RT/LT FEMUR, L ANKLE HARDWARE, CATAR Smoking Status: Never Smoker Alcohol Use: None Drug Use: None General Adult EDM: Chief Complaint: WEAKNESS/GENERALIZED HPI: HPI: 75-year-old female PMH 90/depression, GERD, Raynaud's, hypertension, hyperlipidemia and thyroid disease presents the ED with complaints of generalized weakness for the past few months, believes she is prescribed too many medications. Review of Systems: Review of Systems: Constitutional: Denies fever or chills. [] Eyes: Denies change in visual acuity. [] HENT: Denies nasal congestion or sore throat. [] Respiratory: Denies cough or shortness of breath. [] Cardiovascular: Denies chest pain or edema. [] GI: Denies abdominal pain, nausea, vomiting, bloody stools or diarrhea. [] : Denies dysuria. [] Musculoskeletal: Denies back pain or joint pain. [] Integument: Denies rash. [] Neurologic: Denies headache, focal weakness or sensory changes. [] Endocrine: Denies polyuria or polydipsia. [] Lymphatic: Denies swollen glands. [] Psychiatric: Denies depression or anxiety. [] Heart Score: C/O Chest Pain: No Risk Factors: Risk Factors: DM, Current or recent (<one month) smoker, HTN, HLP, family history of CAD, obesity. Risk Scores: Score 0 - 3: 2.5% MACE over next 6 weeks - Discharge Home Score 4 - 6: 20.3% MACE over next 6 weeks - Admit for Clinical Observation Score 7 - 10: 72.7% MACE over next 6 weeks - Early Invasive Strategies Allergies: Allergies: Allergies Coded Allergies Type Severity Reaction Last Updated Verified Sulfa (Sulfonamide Antibiotics) Allergy Intermediate 03/10/15 Yes hydrochlorothiazide Allergy Intermediate 09/08/17 Yes Physical Exam: PE: Constitutional: Well developed, well nourished, no acute distress, non-toxic appearance. HENT: Normocephalic, atraumatic, Eyes: EOMI, conjunctiva normal, no discharge. Neck: Normal range of motion, supple, Cardiovascular: S1/2 present, regular rhythm Lungs & Thorax: Speaking in full sentences, bilateral equal chest rise, no tachypnea or increased work of breathing Abdomen: soft, no tenderness, Skin: Warm, dry, no erythema, no rash. [] Back: No tenderness, no CVA tenderness. [] Extremities: No tenderness, no cyanosis, Neurologic: Alert and oriented X 3, normal motor function, normal sensory function, no focal deficits noted. [] Psychologic: Affect normal, judgement normal, mood normal. [] Current Patient Data: Vital Signs: Vital Signs Date Time Temp Pulse Resp B/P (MAP) Pulse Ox O2 Delivery O2 Flow Rate FiO2 09/29/20 14:01 98.0 64 18 132/59 (83) 99 Room Air 98.0 EKG: EKG: Sinus rhythm at 63 bpm, left axis deviation, first-degree AV block with OR 210, T wave inversion lead III, no ST elevations or ST depressions Radiology/Procedures: Radiology/Procedures: IMAGING REPORT Signed PATIENT: ALEX RODARTE: [id number] : 1945 LOCATION: ER AGE: 75 SEX: F EXAM STATUS: REG ER ORD. PHYSICIAN: ERUM PINO DO REASON: weakness PROCEDURE: PORTABLE CHEST 1V XR CHEST 1V CLINICAL INDICATIONS: Reason: weakness / Spl. Instructions: / History: COMPARISON: May 08, 2020. Findings: No acute lung infiltrate or pleural effusion or pulmonary edema or lung mass or pneumothorax is seen. The heart size, pulmonary vasculature, mediastinum and both aida are stable. IMPRESSION: No acute radiographic abnormality is seen. X-ray Electronically signed by: Sonya Palomo MD (09/29/2020 3:30 PM) [id number] DICTATED and SIGNED BY: SONYA PALOMO MD DATE: 09/29/20 [id number] Course & Med Decision Making: Course & Med Decision Making Pertinent Labs and Imaging studies reviewed. (See chart for details) Patient presents the ED with complaints of generalized weakness. On reevaluation patient smiling and states she feels well, "Can I go home now?" Concern for possible UTI and a very well-appearing female, afebrile with no signs of sepsis. Treat with antibiotics. Will discharge home with strict ED return precautions were given for fever, syncope, chest pain, dyspnea, flulike symptoms, intractable nausea or vomiting, myalgias or flank pain. Encouraged urgent outpatient follow-up with PMD in 24 to 48 hours for reevaluation. Life- threatening processes were considered but are low suspicion at this time, given history, physical exam and ED workup. Pt was educated on all prescription medications and adverse effects. All patient's questions were answered and pt was stable at time of discharge. Life/limb-threatening differential includes but is not limited to, surgical abdomen (appendicitis, cholecystitis, diverticulitis, inflammatory bowel disease, abscess, perforation), meningitis, encephalitis, Naga's angina, endocarditis, myocarditis, life-threatening rash (necrotizing fasciitis), gynec ologic and urologic emergencies (endometritis, ovarian/testicular torsion, TOA, obstructive nephropathy, prostatitis), head and neck abscess, infection concerning for sepsis or shock, or respiratory failure. I spoken with the patient and her caregivers. I explained the patient's condition, diagnoses and treatment plan based on the information available to me at this time. I have answered the patient and her caregiver's questions and addressed any concerns. The patient and her caregivers have a good und erstanding of patient's diagnosis, condition and treatment plan as can be expected at this point. Vital signs have been stable. Patient's condition is stable and appropriate for discharge from the emergency department. Patient will pursue further outpatient evaluation with primary care physician or other designated or consulting physician as outlined in the discharge instructions. The patient and/or caregivers are agreeable to this plan of care and follow-up instructions have been explained in detail. The patient and/or caregivers have received these instructions in written form and have expressed an understanding of the discharge instructions. The patient and/or caregivers are aware that any significant change of condition or worsening of symptoms sh ould prompt immediate return to this or the closest emergency department or call to 911. Karyn Disclaimer: Karyn Disclaimer: This electronic medical record was generated, in whole or in part, using a voice recognition dictation system. Departure Departure Impression: Primary Impression: Weakness Additional Impression: UTI (urinary tract infection) Disposition: HOME / SELF CARE / HOMELESS Condition: STABLE Referrals: Deirdre QUINTEROS MD (PCP) Follow-up in 24 to 48 hours for reevaluation Patient Instructions: Urinary Tract Infection, Weakness Additional Instructions: EMERGENCY DEPARTMENT GENERAL DISCHARGE INSTRUCTIONS Thank you for coming to [facility] Emergency Department (ED) today and trusting us with you care. We trust that you had a positive experience in our Emergency Department. If you wish to speak to the department management, you may call the Director at [phone]. YOUR FOLLOW UP INSTRUCTIONS ARE FOLLOWS: 1. Do you have a private Doctor? If you do not have a private doctor, please ask for a resource list of physicians or clinics that may be able to assist you with follow up care. 2. The Emergency Physicain has interpreted your x-rays. The X-Ray specialist will also review them. If there is a change in the findings, you will be notified in 48 hours when at all possible. 3. A lab test or culture has been done, your results will be reviewed and you will be notified if you need a change in treatment. ADDITIONAL INSTRUCTIONS AND INFORMATION: 1. Your care today has been supervised by a physician who is specially trained in emergency care. Many problems require more than one evaluation for a complete diagnosis and treatment. We recommend that you schedule your follow up appointment as recommended to ensure complete treatment of you illness or injury. If you are unable to obtain follow up care and continue to have a problem, or if your condition worsens, we recommend that you return to the ED. 2. We are not able to safely determine your condition over the phone nor are we able to give sound medical advice over the phone. For these safety reasons, if you call for medical advice we will ask you to come to the ED for further evaluation. 3. If you have any questions regarding these discharge instructions please call the ED at [phone]. SAFETY INFORMATION: In the interest of safety, wellness, and injury prevention; we encourage you to wear your sealbelt, if you smoke; quite smoking, and we encourage family to use a protective helmet for bicycling and other sporting events that present an increased risk for head injury. IF YOUR SYMPTOMS WORSEN OR NEW SYMPTOMS DEVELOP, OR YOU HAVE CONCERNS ABOUT YOUR CONDITION; OR IF YOUR CONDITION WORSENS WHILE YOU ARE WAITING FOR YOUR FOLLOW UP APPOINTMENT; EITHER CONTACT YOUR PRIMARY CARE DOCTOR, THE PHYSICIAN WHOSE NAME AND NUMBER YOU WERE GIVEN, OR RETURN TO THE ED IMMEDIATELY. Scripts Cephalexin (CEPHALEXIN) 500 Mg Capsule 1 CAP PO QID for 10 Days, #40 CAP Prov: ERUM PINO DO 09/29/20 ERUM PINO DO September 29, 2020 14:54
[2020-09-29 14:56] LABS: BARBITURATES NEG (NEG); BENZODIAZEPINES NEG (NEG); CANNABINOIDS NEG (NEG); COCAINE NEG (NEG); METHADONE NEG (NEG); OPIATES NEG (NEG); PHENCYCLIDINE NEG (NEG)
[2020-09-29 14:57] LABS: BACTERIA,URINE FEW /HPF (0-FEW); COLOR,URINE STRAW
[2020-09-29 14:58] LABS: RBC,URINE RARE /HPF (0-2)
[2020-09-29 15:05] LABS: BASO # 0.1 x10^3/uL (0.0-0.2); BASO % 1 % (0-3); EOS # 0.1 x10^3/uL (0.0-0.7); EOS % 1 % (0-3); HEMATOCRIT 36.1 % (36.0-47.0); HEMOGLOBIN 11.9 g/dL (12.0-15.5); LYMPH % 20 % (24-48); MEAN CORPUSCULAR HEMOGLOBIN 26 pg (25-35); MEAN CORPUSCULAR HGB CONC 33 g/dL (31-37); MEAN CORPUSCULAR VOLUME 78 fL (79-100); MONO # 0.9 x10^3/uL (0.0-1.1); MONO % 9 % (0-9); NEUT # 6.9 x10^3/uL (1.8-7.7); NEUT % 70 % (31-73); PLATELET COUNT 299 x10^3/uL (140-400); RED BLOOD COUNT 4.66 x10^6/uL (3.50-5.40); RED CELL DISTRIBUTION WIDTH 19.4 % (11.5-14.5); WHITE BLOOD COUNT 9.9 x10^3/uL (4.0-11.0)
[2020-09-29 15:05] LABS: AMPHETAMINE/METHAMPHETAMINE NEG (NEG)
[2020-09-29 15:23] LABS: CALCIUM 9.3 mg/dL (8.5-10.1); CREATININE 0.7 mg/dL (0.6-1.0); GFR 81.6; POTASSIUM 4.7 mmol/L (3.5-5.1)
[2020-09-29 15:25] LABS: SALIC < 2.8 mg/dL (2.8-20.0)
[2020-09-29 15:26] LABS: ACETAMIN < 2 mcg/ml (10-30)
[2020-09-29 15:28] LABS: ALBUMIN 3.6 g/dL (3.4-5.0); ALBUMIN/GLOBULIN RATIO 1.4 (1.0-1.7); MAGNESIUM 1.9 mg/dL (1.8-2.4); TOTAL BILIRUBIN 0.4 mg/dL (0.2-1.0); TOTAL PROTEIN 6.2 g/dL (6.4-8.2)
--- NOTE | 2020-09-29 15:33 | RAD ---
XR CHEST 1V CLINICAL INDICATIONS: Reason: weakness / Spl. Instructions: / History: COMPARISON: May 08, 2020. Findings: No acute lung infiltrate or pleural effusion or pulmonary edema or lung mass or pneumothora x is seen. The heart size, pulmonary vasculature, mediastinum and both aida are stable. IMPRESSION: No acute radiographic abnormality is seen. X-ray Electronically signed by: Wilmer Palomo MD (09/29/2020 3:30 PM) [id number]
[2020-09-29] MEDS ORDERED: cefTRIAXone IV Push 1 GM VIAL. IVP ONE (16:15)
--- NOTE | 2020-09-29 17:26 | EKG ---
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
[2020-09-29] MEDS ORDERED: CEPH500C PO (17:31)
[2020-09-29 17:36] VITALS: BP 140/68
== END 2020-09-29 17:58 | disposition home or self-care (01) ==
LOC: ER 14:01
DX: N39.0 Urinary tract infection, site not specified (principal); R53.1 Weakness; J44.9 Chronic obstructive pulmonary disease, unspecified; K21.9 Gastro-esophageal reflux disease without esophagitis; I10 Essential (primary) hypertension; Z90.89 Acquired absence of other organs; Z90.49 Acquired absence of other specified parts of digestive tract; Z88.2 Allergy status to sulfonamides; Z88.5 Allergy status to narcotic agent; Z79.899 Other long term (current) drug therapy
CPT/HCPCS: 36415; 71045; 80053; 80307; 80329; 81001; 83690; 83735; 83880; 84484; 85025; 87086; 93005; 96374; 99285; J0696; G0480

== ENCOUNTER 2020-10-04 11:00 | Inpatient (IN) | payer MEDICARE, MEDICAID ==
[~2020-10-04] VITALS: Ht 160 cm; Wt 84.5 kg
[~2020-10-04 11:00] MED LIST changes: +CEPH500C PO
--- NOTE | 2020-10-04 11:16 | PHYS DOC ---
Past Medical History Past Medical History: Anxiety, Asthma, COPD, Depression, GERD, Hypertension, Other Additional Past Medical Histor: thyroid issue, SLEEP APNEA/RA,REYNAUD'S Past Surgical History: Appendectomy, Cholecystectomy, Knee Replacement Additional Past Surgical Histo: left rotator cuff X 3,hernia, RT/LT FEMUR, L ANKLE HARDWARE, CATAR Smoking Status: Never Smoker Alcohol Use: None Drug Use: None General Adult EDM: Chief Complaint: GI PROBLEM HPI: HPI: 75 yo F PMH right femoral neck fracture s/p ORIF (05/2020, s/p plavix), HTN, COPD, GERD, anx/dep, RA and hypothyroidism, presents to the ed bibems with c/o "I passed a large blood clot while sitting on the toilet," yesterday, while across the street at her sisters' house. Reports multiple episodes of black and red stool with large clots. Pt uncertain if from rectum, vagina or urethra. Reports her plavix that she took after surgery was discontinued yesterday? EMR was reviewed-pt was seen by me 6 days ago for generalized weakness and prescribed Keflex for UTI. No h/o GIB or blood transfusions. Review of Systems: Review of Systems: Constitutional: Denies fever or chills. [] Eyes: Denies change in visual acuity. [] HENT: Denies nasal congestion or sore throat. [] Respiratory: Denies cough or shortness of breath. [] Cardiovascular: Denies chest pain or edema. [] GI: Denies abdominal pain, nausea, vomiting, or constipation : Denies dysuria or flank pain Musculoskeletal: Denies back pain or joint pain. [] Integument: Denies rash or diaphoresis Neurologic: Denies headache, focal weakness or sensory changes. [] Endocrine: Denies polyuria or polydipsia. [] Lymphatic: Denies swollen glands. [] Psychiatric: Denies depression or anxiety. [] Heart Score: C/O Chest Pain: No Risk Factors: Risk Factors: DM, Current or recent (<one month) smoker, HTN, HLP, family history of CAD, obesity. Risk Scores: Score 0 - 3: 2.5% MACE over next 6 weeks - Discharge Home Score 4 - 6: 20.3% MACE over next 6 weeks - Admit for Clinical Observation Score 7 - 10: 72.7% MACE over next 6 weeks - Early Invasive Strategies Current Medications: Current Medications Medications (Trade) Dose Ordered Sig/James Start Time Stop Time Status Last Admin Dose Admin Pantoprazole Sodium (PROTONIX VIAL for IV PUSH) 80 mg 1X ONCE 10/04/20 11:15 10/04/20 11:16 UNV Pantoprazole Sodium 80 mg/ Sodium Chloride 100 ml @ 10 mls/hr Q10H 10/04/20 11:15 UNV Allergies: Allergies: Allergies Coded Allergies Type Severity Reaction Last Updated Verified Sulfa (Sulfonamide Antibiotics) Allergy Intermediate 03/10/15 Yes hydrochlorothiazide Allergy Intermediate 09/08/17 Yes Physical Exam: PE: Constitutional: Well developed, well nourished, no acute distress, non-toxic appearance. HENT: Normocephalic, atraumatic, Eyes: EOMI, conjunctiva normal, no discharge. Neck: Normal range of motion, supple, Cardiovascular: S1/2 present, regular rhythm Lungs & Thorax: Speaking in full sentences, bilateral equal chest rise, no tachypnea or increased work of breathing Abdomen: soft, no tenderness, obese Skin: Warm, dry, no erythema, no rash. [] Back: No tenderness, no CVA tenderness. [] Extremities: No tenderness, no cyanosis, Neurologic: Alert and oriented X 3, no focal deficits noted. [] Psychologic: Affect normal, judgement normal, mood normal. [] : copious blood clots in diaper with gross BRBPR, mild nonthrombosed external hemorrhoids, ZORAN (performed twice) with hematochezia, vaginal speculum exam with some blood over distal tip of speculum, later witnessed scant vaginal bleeding from vaginal orifice-does not appear to be coming from urethral meatus EKG: EKG: Sinus rhythm at 68 bpm, left axis deviation, first-degree AV block with OK interval 208, T wave inversion lead III, no ST elevations or ST depressions Radiology/Procedures: Radiology/Procedures: IMAGING REPORT Signed PATIENT: ALEX RODARTE: [id number] : 1945 LOCATION: ER AGE: 75 SEX: F EXAM STATUS: REG ER ORD. PHYSICIAN: ERUM PINO DO REASON: gi bleed r/o free air PROCEDURE: CHEST AP ONLY INDICATION: Hematochezia COMPARISON: September 29, 2020 FINDINGS: Single view of chest obtained. Right shoulder arthroplasty changes. Tortuous aortic contour is again seen with calcific atherosclerosis. No definite new region of airspace consolidation or edema. Definite free air is not seen under the diaphragm within the limits of chest x-ray. IMPRESSION: * No focal airspace consolidation Electronically signed by: Coco Christine MD (10/04/2020 12:07 PM) [id number] DICTATED and SIGNED BY: COCO CHRISTINE MD DATE: 10/04/20 [id number] IMAGING REPORT Signed PATIENT: TAWANNA RODARTEOUNT: [id number] : 1945 LOCATION: ER AGE: 75 SEX: F EXAM STATUS: REG ER ORD. PHYSICIAN: ERUM PINO DO REASON: hematochezia PROCEDURE: CT ABD PELV W/ IV CONTRST ONLY CTM pelvis with contrast dated 10/04/2020. Comparison made to 07/30/2018. CLINICAL INDICATION: Hematochezia. TECHNIQUE: Contiguous axial imaging of the abdomen pelvis performed following intravenous and demonstration of 75 cc Omnipaque 300. One or more of the following individualized dose reduction techniques were utilized for this examination: 1. Automated exposure control 2. Adjustment of the mA and/or kV according to patient size 3. Use of iterative reconstruction technique. FINDINGS: Limited images of lung bases show heart size upper limits of normal. Minimal linear scar or atelectasis at both lung bases. No pleural or pericardial effusion. There is dilated fluid-filled thoracic esophagus, unchanged. There is marked dilation of the intrahepatic and extra hepatic biliary tree, similar to prior study. The common hepatic duct measures up to 3.4 cm transversely versus 3.2 cm previously. There is abrupt tapering of the distal CBD at the ampulla, similar to prior study. No definite filling defect or discrete mass. The pancreas is atrophic and there is dilation of the pancreatic duct, unchanged. No inflammatory changes surrounding the gland. The gallbladder is surgically absent. Spleen is normal in size. Adrenal glands and kidneys are unremarkable. No hydronephrosis. There is some cortical scarring at the midpole left kidney. Unopacified GI tract normal in caliber and contour. No bowel wall thickening. No inflammatory stranding in the mesentery. The abdominal aorta is normal in caliber. Appendix is not identified and likely surgically absent. No free fluid or lymphadenopathy. Images of pelvis show nondistended urinary bladder. There is diffuse bladder wall thickening. Uterus and adnexa are unremarkable. Scattered diverticula within the distal colon. No lymphadenopathy or ascites. Bone windows show no acute finding. Multilevel spondylosis. IMPRESSION: 1. Persistent severe dilation of the intrahepatic and extra hepatic biliary tree, similar to prior study. There is no apparent choledocholithiasis or obstructing mass. A distal stricture at the ampulla cannot be excluded. Correlate with laboratory values. 2. Pancreatic atrophy with mild diffuse dilation of the pancreatic duct, unchanged. 3. Diffuse wall thickening of the urinary bladder, nonspecific. Consider acute or chronic cystitis. 4. Dilated fluid-filled thoracic esophagus. Consider achalasia or chronic reflux. Electronically signed by: Christiano Reyez MD (10/04/2020 1:25 PM) [id number] DICTATED and SIGNED BY: CHRISTIANO REYEZ MD DATE: 10/04/20 [id number] 0 Course & Med Decision Making: Course & Med Decision Making Pertinent Labs and Imaging studies reviewed. (See chart for details) Concern for GIB vs VB in a HD stable pt. Labs show likely slightly worsened microcytic anemia. Will admit for further medical management with GI consultation. Patient started on PPI bolus involution, is n.p.o. treatment Rocephin for likely persistent UTI. Patient stable at time of admission and agree with this plan. I have spoken with the patient and/or caregivers. I have explained the patient's condition, diagnosis and treatment plan based on the information available to me at this time. I have answered the patient's and/or caregivers questions and answered any concerns. The patient and/or caregivers have as good an understanding of the patient's diagnosis, condition and treatment plan as can be expected at this point. The patient has been stabilized within the capability of the emergency department. The patient will be transported for further care and management or will be moved to an observation or inpatient service. I have communicated with the staff or medical practitioner taking over this patient's care. Karyn Disclaimer: Karyn Disclaimer: This electronic medical record was generated, in whole or in part, using a voice recognition dictation system. Departure Departure Impression: Primary Impression: GI bleeding Additional Impression: Microcytic anemia Disposition: ADMITTED INPATIENT Admitting Physician: STU (Dr. Stahl) Condition: STABLE Referrals: Deird[facility] QUINTEROS MD (PCP) [facility] Oct 04, 2020 11:16
[2020-10-04 11:26] LABS: BASO # 0.1 x10^3/uL (0.0-0.2); BASO % 1 % (0-3); EOS # 0.1 x10^3/uL (0.0-0.7); EOS % 1 % (0-3); HEMATOCRIT 32.6 % (36.0-47.0); HEMOGLOBIN 10.6 g/dL (12.0-15.5); LYMPH # 1.3 x10^3/uL (1.0-4.8); LYMPH % 18 % (24-48); MEAN CORPUSCULAR HEMOGLOBIN 25 pg (25-35); MEAN CORPUSCULAR HGB CONC 32 g/dL (31-37); MEAN CORPUSCULAR VOLUME 78 fL (79-100); MONO # 0.5 x10^3/uL (0.0-1.1); MONO % 7 % (0-9); NEUT # 5.3 x10^3/uL (1.8-7.7); NEUT % 73 % (31-73); PLATELET COUNT 286 x10^3/uL (140-400); RED BLOOD COUNT 4.17 x10^6/uL (3.50-5.40); RED CELL DISTRIBUTION WIDTH 19.7 % (11.5-14.5); WHITE BLOOD COUNT 7.2 x10^3/uL (4.0-11.0)
[2020-10-04] MEDS ORDERED: PANTOPRAZOLE IV PUSH 40 MG VIAL. IVP ONE (11:30)
[2020-10-04 11:43] LABS: CREATININE 0.7 mg/dL (0.6-1.0); GFR 81.6; POTASSIUM 4.7 mmol/L (3.5-5.1)
[2020-10-04 11:45] LABS: FECAL OB PT NEGATIVE (NEG)
[2020-10-04 11:51] LABS: ALBUMIN 3.4 g/dL (3.4-5.0); TOTAL BILIRUBIN 0.4 mg/dL (0.2-1.0); TOTAL PROTEIN 6.7 g/dL (6.4-8.2)
[2020-10-04] MEDS: PANTOPRAZOLE SODIUM IV DRIP 80 MG in IV NORMAL SALINE 100ML 100 ML IV SCH ×2 (12:02→21:38)
[2020-10-04 12:06] LABS: BILIRUBIN,URINE NEGATIVE (NEG); CLARITY,URINE CLEAR; COLOR,URINE YELLOW; NITRITE,URINE NEGATIVE (NEG); PROTEIN,URINE NEGATIVE (NEG-TRACE); UROBILINOGEN,URINE 0.2 mg/dL (0.2 mg/dL)
--- NOTE | 2020-10-04 12:09 | RAD ---
INDICATION: Hematochezia COMPARISON: September 29, 2020 FINDINGS: Single view of chest obtained. Right shoulder arthroplasty changes. Tortuous aortic contour is again seen with calcific atherosclerosis. No definite new region of airspa ce consolidation or edema. Definite free air is not seen under the diaphragm within the limits of dave st x-ray. IMPRESSION: * No focal airspace consolidation Electronically signed by: Omid Barrera MD (10/04/2020 12:07 PM) [id number]
[2020-10-04] MEDS ORDERED: CONTRAST GIVEN. MC PRN (12:15)
[2020-10-04 12:17] LABS: BACTERIA,URINE FEW /HPF (0-FEW); RBC,URINE OCC /HPF (0-2)
[2020-10-04] MEDS ORDERED: IOHEXOL 300 MG/ML 100ML VIAL. IV ONE (12:30)
--- NOTE | 2020-10-04 12:42 | EKG ---
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
--- NOTE | 2020-10-04 13:27 | RAD ---
CTM pelvis with contrast dated 10/04/2020. Comparison made to 07/30/2018. CLINICAL INDICATION: Hematochezia. TECHNIQUE: Contiguous axial imaging of the abdomen pelvis performed following intravenous and demonstration of 7 5 cc Omnipaque 300. One or more of the following individualized dose reduction techniques were utilized for this examinat ion: 1. Automated exposure control 2. Adjustment of the mA and/or kV according to patient size 3. Use of iterative reconstruction technique. FINDINGS: Limited images of lung bases show heart size upper limits of normal. Minimal linear scar or atelectas is at both lung bases. No pleural or pericardial effusion. There is dilated fluid-filled thoracic eso phagus, unchanged. There is marked dilation of the intrahepatic and extra hepatic biliary tree, similar to prior study. The common hepatic duct measures up to 3.4 cm transversely versus 3.2 cm previously. There is abrupt tapering of the distal CBD at the ampulla, similar to prior study. No definite filling defect or disc rete mass. The pancreas is atrophic and there is dilation of the pancreatic duct, unchanged. No infla mmatory changes surrounding the gland. The gallbladder is surgically absent. Spleen is normal in size. Adrenal glands and kidneys are unrema rkable. No hydronephrosis. There is some cortical scarring at the midpole left kidney. Unopacified GI tract normal in caliber and contour. No bowel wall thickening. No inflammatory strandi ng in the mesentery. The abdominal aorta is normal in caliber. Appendix is not identified and likely surgically absent. No free fluid or lymphadenopathy. Images of pelvis show nondistended urinary bladder. There is diffuse bladder wall thickening. Uterus and adnexa are unremarkable. Scattered diverticula within the distal colon. No lymphadenopathy or asc ites. Bone windows show no acute finding. Multilevel spondylosis. IMPRESSION: 1. Persistent severe dilation of the intrahepatic and extra hepatic biliary tree, similar to prior st udy. There is no apparent choledocholithiasis or obstructing mass. A distal stricture at the ampulla cannot be excluded. Correlate with laboratory values. 2. Pancreatic atrophy with mild diffuse dilation of the pancreatic duct, unchanged. 3. Diffuse wall thickening of the urinary bladder, nonspecific. Consider acute or chronic cystitis. 4. Dilated fluid-filled thoracic esophagus. Consider achalasia or chronic reflux. Electronically signed by: Christiano Dowd MD (10/04/2020 1:25 PM) [id number]
[2020-10-04] MEDS ORDERED: cefTRIAXone IV Push 1 GM VIAL. IVP ONE (14:00)
--- NOTE | 2020-10-04 14:33 | PDOC1 ---
History and Physical Date of Service: DOS: DATE: 10/04/20 TIME: 14:21 Chief Complaint: Chief Complain: Lower rectal bleeding History of Present Illness: HPI: History obtained from ED physician 75 yo F PMH right femoral neck fracture s/p ORIF (05/2020, s/p plavix), HTN, CO PD, GERD, anx/dep, RA and hypothyroidism, presents to the ed bibems with c/o "I passed a large blood clot while sitting on the toilet," yesterday, while across the street at her sisters' house. Reports multiple episodes of black and red stool with large clots. Pt uncertain if from rectum, vagina or urethra. ED course: Hemoccult stool was obtained and was positive for blood. Pending abdominal ultrasound for elevated liver enzymes and possible stenosis of the distal CBD. Past Medical/Surgical History: PMH/PSH: Past Medical History: Anxiety, Asthma, COPD, Depression, GERD, Hypertension, thyroid issue, SLEEP APNEA/RA,REYNAUD'S Past Surgical History: Appendectomy, Cholecystectomy, Knee Replacement, left rotator cuff X 3,hernia, RT/LT FEMUR, L ANKLE [employer]WARE, CATAR Allergies: Allergies: Coded Allergies: Sulfa (Sulfonamide Antibiotics) (Verified Allergy, Intermediate, 03/10/15) hydrochlorothiazide (Verified Allergy, Intermediate, 09/08/17) Family History: Family History: Reviewed with no relevant findings Social History: Social History: Smoking Status: Never Smoker Alcohol Use: None Drug Use: None Current Medications: Current Medications Current Medications Pantoprazole Sodium (PROTONIX VIAL for IV PUSH) 80 mg 1X ONCE IVP Last administered on 10/04/20at 12:02; Start 10/04/20 at 11:30; Stop 10/04/20 at 11:31; Status DC Pantoprazole Sodium 80 mg/ Sodium Chloride 100 ml @ 10 mls/hr Q10H IV Last administered on 10/04/20at 12:02; Start 10/04/20 at 12:00 Iohexol (Omnipaque 300 Mg/ml) 75 ml 1X ONCE IV Last administered on 10/04/20at 01:00; Start 10/04/20 at 12:30; Stop 10/04/20 at 12:31; Status DC Info (CONTRAST GIVEN -- Rx MONITORING) 1 each PRN DAILY PRN MC SEE COMMENTS; Start 10/04/20 at 12:15; Stop 10/06/20 at 12:14 Ceftriaxone Sodium (Rocephin) 1 gm 1X ONCE IVP ; Start 10/04/20 at 14:00; Stop 10/04/20 at 14:01; Status DC Active Scripts Active Cephalexin 500 Mg Capsule 1 Cap PO QID 10 Days Hydroxychloroquine Sulfate 200 Mg Tablet 400 Mg PO DAILY 30 Days Polyethylene Glycol 3350 17 Gm Powd.pack 17 Gm PO DAILY 30 Days Reported Melatonin 3 Mg Tablet 1 Tab PO QHS [place] Sprinkle (Metoprolol Succinate) 50 Mg Cap.spr.24 50 Mg PO DAILY Meloxicam 7.5 Mg Tablet 1 Tab PO DAILY Lisinopril 10 Mg Tablet 1 Tab PO DAILY Levothyroxine Sodium 50 Mcg Tablet 1 Tab PO DAILY Cymbalta (Duloxetine Hcl) 60 Mg Capsule. 1 Cap PO DAILY Clonazepam 2 Mg Tablet 2 Mg PO BID Vitamin D3 (Cholecalciferol (Vitamin D3)) 1,000 Unit Tablet 1 Tab PO DAILY Centrum Silver Tablet (Multivits-Min/Fa/Lycopene/Lut) 1 Each Tablet 1 Each PO DAILY LAST DOSE THIS AM NEXT DOSE TOMORROW AM Fish Oil 1,000 Mg Softgel ([place]-3 Fatty Acids/Fish Oil) 1 Each Capsule 1 Each PO DAILY LAST DOSE THIS AM NEXT DOSE TOMORROW AM Combivent Respimat Inhal (Ipratropium/Albuterol Sulfate) 4 Gm Aer.w.adap 1 Inh IH QID MAY RESUME WHEN AT HOME Pantoprazole Sodium (Pantoprazole Sodium) 40 Mg Tablet. 1 Tab PO DAILY LAST DOSE THIS AM NEXT DOSE TOMORROW AM Albuterol Sulfate Conc Neb Soln (Albuterol Sulfate) 2.5 Mg/0.5 Ml Vial.neb 1 Vial NEB BID LAST DOSE THIS AM NEXT DOSE PILI Aspir 81 (Aspirin) 81 Mg Tablet. 81 Mg PO LAST DOSE THIS AM NEXT DOSE TOMOOROW AM ROS: Review of Systems Review of System REVIEW OF SYSTEMS: GENERAL: Denies weakness SKIN: No bruising, hair changes or rashes. EYES: No blurred, double or loss of vision. NOSE AND THROAT: No history of nosebleeds, hoarseness or sore throat. HEART: No history of palpitations, chest pain or shortness of breath on exertion. LUNGS: Denies cough, hemoptysis, wheezing or shortness of breath. GASTROINTESTINAL: Denies changes in appetite, nausea, vomiting, diarrhea or constipation. GENITOURINARY: No history of frequency, urgency, hesitancy or nocturia. NEUROLOGIC: Denies history of numbness, tingling, or tremor. PSYCHIATRIC: No history of panic, anxiety or depression. ENDOCRINE: No history of heat or cold intolerance, polyuria or polydipsia. EXTREMITIES: Denies joint pain, pain on walking or stiffness. Physical Exam: Vital Signs: Vital Signs Date Time Temp Pulse Resp B/P (MAP) Pulse Ox O2 Delivery O2 Flow Rate FiO2 10/04/20 13:08 64 16 140/63 (88) 96 Nasal Cannula 2.0 10/04/20 11:00 98.3 98.3 Physcial Exam: GEN: No apparent distress. Alert and oriented HEENT: Normal cephalic, atraumatic, external auditory canals are patent EYES: Extraocular muscles are intact, pupil are equally round and reactive to light and accommodation MUSCULOSKELETAL: Well developed , well nourished, good range of motion ENDOCRINE: No thyromegaly was palpated LYMPHATICS: No cervical chain or axillary nodes were noted HEMATOPOIETIC: No bruising NECK: Supple, no JVD, no thyromegaly was noted LUNGS: Clear to auscultation in all lung [place] without rhonchi or wheezing HEART: RRR, S!, S2 present. Peripheral pulses intact, no obvious murmurs noted ABDOMEN: Soft, nontender. Positive bowel sounds, no organomegaly, normal bowel sounds EXTREMITIES: Without clubbing, cyanosis, or edema. Pedal pulses intact. Negative Homans sign NEUROLOGIC: Normal speech and tone. A&O x 3, moves all extremities, no obvious focal deficits PSYCHIATRIC: Normal affect, normal mood. Stable SKIN: No ulcerations or rashes, good skin turgor, no jaundice VASCULAR: Good capillary refill, neurovascular bundle appears to be intact Labs: Labs: Laboratory Tests Test 10/04/20 11:04 10/04/20 11:08 10/04/20 11:47 Stool Occult Blood Negative (NEG) White Blood Count 7.2 x10^3/uL (4.0-11.0) Red Blood Count 4.17 x10^6/uL (3.50-5.40) Hemoglobin 10.6 g/dL (12.0-15.5) Hematocrit 32.6 % (36.0-47.0) Mean Corpuscular Volume 78 fL (79-100) Mean Corpuscular Hemoglobin 25 pg (25-35) Mean Corpuscular Hemoglobin Concent 32 g/dL (31-37) Red Cell Distribution Width 19.7 % (11.5-14.5) Platelet Count 286 x10^3/uL (140-400) Neutrophils (%) (Auto) 73 % (31-73) Lymphocytes (%) (Auto) 18 % (24-48) Monocytes (%) (Auto) 7 % (0-9) Eosinophils (%) (Auto) 1 % (0-3) Basophils (%) (Auto) 1 % (0-3) Neutrophils # (Auto) 5.3 x10^3/uL (1.8-7.7) Lymphocytes # (Auto) 1.3 x10^3/uL (1.0-4.8) Monocytes # (Auto) 0.5 x10^3/uL (0.0-1.1) Eosinophils # (Auto) 0.1 x10^3/uL (0.0-0.7) Basophils # (Auto) 0.1 x10^3/uL (0.0-0.2) Prothrombin Time 14.0 SEC (11.7-14.0) Prothromb Time International Ratio 1.1 (0.8-1.1) Activated Partial Thromboplast Time 29 SEC (24-38) Fibrinogen 542 mg/dL (200-440) D-Dimer (Brook) 1.30 ug/mlFEU (0.00-0.50) Sodium Level 133 mmol/L (136-145) Potassium Level 4.7 mmol/L (3.5-5.1) Chloride Level 98 mmol/L (98-107) Carbon Dioxide Level 27 mmol/L (21-32) Anion Gap 8 (6-14) Blood Urea Nitrogen 13 mg/dL (7-20) Creatinine 0.7 mg/dL (0.6-1.0) Estimated GFR (Cockcroft-Gault) 81.6 BUN/Creatinine Ratio 19 (6-20) Glucose Level 93 mg/dL (70-99) Calcium Level 9.0 mg/dL (8.5-10.1) Magnesium Level 1.7 mg/dL (1.8-2.4) Total Bilirubin 0.4 mg/dL (0.2-1.0) Aspartate Amino Transf (AST/SGOT) 46 U/L (15-37) Alanine Aminotransferase (ALT/SGPT) 61 U/L (14-59) Alkaline Phosphatase 438 U/L (46-116) Troponin I Quantitative < 0.017 ng/mL (0.000-0.055) Total Protein 6.7 g/dL (6.4-8.2) Albumin 3.4 g/dL (3.4-5.0) Albumin/Globulin Ratio 1.0 (1.0-1.7) Ethyl Alcohol Level < 10 mg/dL (0-10) Urine Collection Type U cath Urine Color Yellow Urine Clarity Clear Urine pH 6.0 (<5.0-8.0) Urine Specific [place] 1.010 (1.000-1.030) Urine Protein Negative mg/dL (NEG-TRACE) Urine Glucose (UA) Negative mg/dL (NEG) Urine Ketones (Stick) Negative mg/dL (NEG) Urine Blood Small (NEG) Urine Nitrite Negative (NEG) Urine Bilirubin Negative (NEG) Urine Urobilinogen Dipstick 0.2 mg/dL (0.2 mg/dL) Urine Leukocyte Esterase Negative (NEG) Urine RBC Occ /HPF (0-2) Urine WBC 1-4 /HPF (0-4) Urine Squamous Epithelial Cells Few /LPF Urine Bacteria Few /HPF (0-FEW) Urine Mucus Slight /LPF Laboratory Tests Test 10/04/20 11:04 10/04/20 11:08 10/04/20 11:47 Stool Occult Blood Negative (NEG) White Blood Count 7.2 x10^3/uL (4.0-11.0) Red Blood Count 4.17 x10^6/uL (3.50-5.40) Hemoglobin 10.6 g/dL (12.0-15.5) Hematocrit 32.6 % (36.0-47.0) Mean Corpuscular Volume 78 fL (79-100) Mean Corpuscular Hemoglobin 25 pg (25-35) Mean Corpuscular Hemoglobin Concent 32 g/dL (31-37) Red Cell Distribution Width 19.7 % (11.5-14.5) Platelet Count 286 x10^3/uL (140-400) Neutrophils (%) (Auto) 73 % (31-73) Lymphocytes (%) (Auto) 18 % (24-48) Monocytes (%) (Auto) 7 % (0-9) Eosinophils (%) (Auto) 1 % (0-3) Basophils (%) (Auto) 1 % (0-3) Neutrophils # (Auto) 5.3 x10^3/uL (1.8-7.7) Lymphocytes # (Auto) 1.3 x10^3/uL (1.0-4.8) Monocytes # (Auto) 0.5 x10^3/uL (0.0-1.1) Eosinophils # (Auto) 0.1 x10^3/uL (0.0-0.7) Basophils # (Auto) 0.1 x10^3/uL (0.0-0.2) Prothrombin Time 14.0 SEC (11.7-14.0) Prothromb Time International Ratio 1.1 (0.8-1.1) Activated Partial Thromboplast Time 29 SEC (24-38) Fibrinogen 542 mg/dL (200-440) D-Dimer (Brook) 1.30 ug/mlFEU (0.00-0.50) Sodium Level 133 mmol/L (136-145) Potassium Level 4.7 mmol/L (3.5-5.1) Chloride Level 98 mmol/L (98-107) Carbon Dioxide Level 27 mmol/L (21-32) Anion Gap 8 (6-14) Blood Urea Nitrogen 13 mg/dL (7-20) Creatinine 0.7 mg/dL (0.6-1.0) Estimated GFR (Cockcroft-Gault) 81.6 BUN/Creatinine Ratio 19 (6-20) Glucose Level 93 mg/dL (70-99) Calcium Level 9.0 mg/dL (8.5-10.1) Magnesium Level 1.7 mg/dL (1.8-2.4) Total Bilirubin 0.4 mg/dL (0.2-1.0) Aspartate Amino Transf (AST/SGOT) 46 U/L (15-37) Alanine Aminotransferase (ALT/SGPT) 61 U/L (14-59) Alkaline Phosphatase 438 U/L (46-116) Troponin I Quantitative < 0.017 ng/mL (0.000-0.055) Total Protein 6.7 g/dL (6.4-8.2) Albumin 3.4 g/dL (3.4-5.0) Albumin/Globulin Ratio 1.0 (1.0-1.7) Ethyl Alcohol Level < 10 mg/dL (0-10) Urine Collection Type U cath Urine Color Yellow Urine Clarity Clear Urine pH 6.0 (<5.0-8.0) Urine Specific [place] 1.010 (1.000-1.030) Urine Protein Negative mg/dL (NEG-TRACE) Urine Glucose (UA) Negative mg/dL (NEG) Urine Ketones (Stick) Negative mg/dL (NEG) Urine Blood Small (NEG) Urine Nitrite Negative (NEG) Urine Bilirubin Negative (NEG) Urine Urobilinogen Dipstick 0.2 mg/dL (0.2 mg/dL) Urine Leukocyte Esterase Negative (NEG) Urine RBC Occ /HPF (0-2) Urine WBC 1-4 /HPF (0-4) Urine Squamous Epithelial Cells Few /LPF Urine Bacteria Few /HPF (0-FEW) Urine Mucus Slight /LPF Images: Images PROCEDURE: CT ABD PELV W/ IV CONTRST ONLY IMPRESSION: 1. Persistent severe dilation of the intrahepatic and extra hepatic biliary tree, similar to prior study. There is no apparent choledocholithiasis or obstructing mass. A distal stricture at the ampulla cannot be excluded. Correlate with laboratory values. 2. Pancreatic atrophy with mild diffuse dilation of the pancreatic duct, unchanged. 3. Diffuse wall thickening of the urinary bladder, nonspecific. Consider acute or chronic cystitis. 4. Dilated fluid-filled thoracic esophagus. Consider achalasia or chronic reflux. Assessment/Plan Assessment/Plan Acute lower GI bleed Intra and extrahepatic biliary duct dilatation, possible CBD ampulla stenosis Acute electrolyte derangementhyponatremia, Hypomagnesemia, possible volume depletion Severe alkaline phosphatase elevation Transaminitis History of essential hypertension History of COPD History of GERD History of anxiety and depression History of rheumatoid arthritis History of ORIF in May 2020 for right hip fracture Admit to medicine for further management GI consult Trend hemoglobin Trend LFTs Continue IV fluids Hold anticoagulation Contraindicated at this time for DVT prophylaxis Protonix GI prophylaxis ADA diet Full code Discussed with RN and SW Disposition inpatient management as above Surrogate decision maker is Allie Coy Justifications for Admission Other Justification Right hip fracture ALLIE TOUSSAINT MD Oct 04, 2020 14:33
[2020-10-04 14:51] LABS: FECAL OB PT POSITIVE (NEG)
[2020-10-04] MEDS ORDERED: MORPHINE SULFATE 2 MG/ML VIAL. IV PRN (15:30)
[2020-10-04] MEDS ORDERED: ONDANSETRON PF 4 MG/2 ML VIAL. IVP PRN (15:30)
[2020-10-04] MEDS ORDERED: ACETAMINOPHEN 325 MG TABLET. PO PRN (15:30)
[2020-10-04] MEDS ORDERED: DEXTROSE 50% 25 GM / 50ML DISP.SYRIN. IV PRN (15:30)
[2020-10-04] MEDS ORDERED: MORPHINE SULFATE 2 MG/ML VIAL. IVP PRN (15:30)
[2020-10-04] MEDS ORDERED: DOCUSATE SODIUM 100 MG CAPSULE. PO PRN (15:30)
[2020-10-04] MEDS ORDERED: DICYCLOMINE HCL 10 MG CAPSULE PO PRN (15:30)
[2020-10-04] MEDS ORDERED: oxyCODONE/APAP 5/325 1 TAB TABLET PO PRN (15:30)
[2020-10-04] MEDS ORDERED: SENNOSIDES 8.6 MG TABLET PO PRN (15:30)
[2020-10-04] MEDS: IV NORMAL SALINE 1000ML BAG 1,000 ML IV SCH (16:00)
[2020-10-04 16:10] VITALS: BP 116/56
--- NOTE | 2020-10-04 17:23 | RAD ---
Complete abdominal ultrasound dated 10/04/2020. No comparison available. Clinical data indication: Elevated liver enzymes. FINDINGS: Liver is of mild increased echogenicity suggesting mild fatty infiltration. No apparent mass. There i s moderate intrahepatic and extra hepatic biliary ductal dilatation, similar to recent CT. No definit e filling defect. The common bile duct measures 2.3 cm. The gallbladder is surgically absent. No abnormality at the gallbladder fossa. Right kidney measures 9 cm in length. Left kidney measures 8.7 cm in length. No hydronephrosis. The spleen is homogeneous in echogenicity and measures 9.2 cm longitudinal. Limited visualized portions of pancreas aorta and IVC unremarkable. No significant ascites. IMPRESSION: 1. There is moderate to severe dilation of the hepatic and extra hepatic biliary tree, similar to jv or CTs, possibly chronic. Correlate with laboratory values. 2. Status post cholecystectomy. Electronically signed by: Christiano Dowd MD (10/04/2020 5:21 PM) [id number]
[2020-10-04 19:36] VITALS: BP 125/62
[2020-10-04 23:41] VITALS: BP 116/64
[2020-10-05] MEDS: IV NORMAL SALINE 1000ML BAG 1,000 ML IV SCH ×3 (02:00→17:27)
[2020-10-05 03:20] VITALS: BP 133/57
[2020-10-05 04:23] LABS: BASO # 0.1 x10^3/uL (0.0-0.2); BASO % 1 % (0-3); EOS # 0.2 x10^3/uL (0.0-0.7); EOS % 2 % (0-3); HEMATOCRIT 26.8 % (36.0-47.0); HEMOGLOBIN 8.5 g/dL (12.0-15.5); LYMPH # 2.4 x10^3/uL (1.0-4.8); LYMPH % 29 % (24-48); MEAN CORPUSCULAR HEMOGLOBIN 25 pg (25-35); MEAN CORPUSCULAR HGB CONC 32 g/dL (31-37); MEAN CORPUSCULAR VOLUME 79 fL (79-100); MONO # 0.8 x10^3/uL (0.0-1.1); MONO % 10 % (0-9); NEUT # 4.7 x10^3/uL (1.8-7.7); NEUT % 57 % (31-73); PLATELET COUNT 241 x10^3/uL (140-400); RED BLOOD COUNT 3.38 x10^6/uL (3.50-5.40); RED CELL DISTRIBUTION WIDTH 20.2 % (11.5-14.5); WHITE BLOOD COUNT 8.2 x10^3/uL (4.0-11.0)
[2020-10-05 04:41] LABS: CALCIUM 8.4 mg/dL (8.5-10.1); CREATININE 0.6 mg/dL (0.6-1.0); GFR 97.5; MAGNESIUM 1.9 mg/dL (1.8-2.4); PHOSPHORUS 3.7 mg/dL (2.6-4.7); POTASSIUM 4.1 mmol/L (3.5-5.1)
[2020-10-05 07:00] VITALS: BP 118/76
--- NOTE | 2020-10-05 08:04 | NUR ---
Pt had bloody stools this morning with clots, reddish in color than black. Pt claimed she feels dizzy when she gets up.
[2020-10-05 09:21] LABS: HEMATOCRIT 26.9 % (36.0-47.0); HEMOGLOBIN 8.8 g/dL (12.0-15.5); RED BLOOD COUNT 3.42 x10^6/uL (3.50-5.40); RED CELL DISTRIBUTION WIDTH 19.5 % (11.5-14.5); WHITE BLOOD COUNT 7.2 x10^3/uL (4.0-11.0)
[2020-10-05] MEDS: PANTOPRAZOLE SODIUM IV DRIP 80 MG in IV NORMAL SALINE 100ML 100 ML IV SCH (09:38)
[2020-10-05 11:00] VITALS: BP 126/90
--- NOTE | 2020-10-05 12:52 | PDOC2 ---
CONSULT Date of Consult Date of Consult DATE: 10/05/20 TIME: 12:41 Reason for Consult Reason for Consult: hematochezia History of Present Illness Reason for Visit: This is a 75-year-old female who presented to the hospital with recurrent hematochezia yesterday. She has a history of diverticulosis noted at colonoscopy may be 10 years ago which was done at that time for minor GI bleeding and screening. She had a small clot on Tuesday and went to see her primary doctor who recommended she stop her Plavix. However on Tuesday, yesterday she had significant recurrent rectal bleeding and presented to the hospital for evaluation. She has no abdominal pain although a little bit of cramping with the bowel movement itself. She denies syncope, lightheadedness or other constitutional symptoms. She denies any nausea or vomiting but does have a history of intermittent dysphagia with occasional regurgitation. This is never been evaluated. Previously she is never had GI bleeding like this before. She also was not aware that she had liver test abnormalities or dilated biliary system but previous x-rays have supported a chronically dilated intra and extrahepatic duct system with a elevated alkaline phosphatase. She has never had an ERCP or MRCP but the findings appear to be stable but cannot exclude the possibility of a chronic stricture Past Medical History Cardiovascular: HTN Pulmonary: COPD, Other GI: Diverticulosis, GERD Psych: Anxiety, Depression Musculoskeletal: Osteoarthritis Rheumatologic: Rheumatoid arthritis Endocrine: Hypothyroidism Past Surgical History Past Surgical History: Appendectomy, Cholecystectomy, Cataract Removal, Hernia Repair, Other Family History Family History: Heart Disease, Hypertension Social History ALCOHOL: none Drugs: None Lives: [facility] Current Problem List Problem List Problems Medical Problems: (1) GI bleeding Status: Acute (2) Microcytic anemia Status: Acute Current Medications Current Medications Current Medications Pantoprazole Sodium (PROTONIX VIAL for IV PUSH) 80 mg 1X ONCE IVP Last adminis tered on 10/04/20at 12:02; Start 10/04/20 at 11:30; Stop 10/04/20 at 11:31; Status DC Pantoprazole Sodium 80 mg/ Sodium Chloride 100 ml @ 10 mls/hr Q10H IV Last administered on 10/05/20at 09:38; Start 10/04/20 at 12:00; Stop 10/05/20 at 11:59; Status DC Iohexol (Omnipaque 300 Mg/ml) 75 ml 1X ONCE IV Last administered on 10/04/20at 01:00; Start 10/04/20 at 12:30; Stop 10/04/20 at 12:31; Status DC Info (CONTRAST GIVEN -- Rx MONITORING) 1 each PRN DAILY PRN MC SEE COMMENTS; Start 10/04/20 at 12:15; Stop 10/06/20 at 12:14 Ceftriaxone Sodium (Rocephin) 1 gm 1X ONCE IVP Last administered on 10/04/20at 14:28; Start 10/04/20 at 14:00; Stop 10/04/20 at 14:01; Status DC Sennosides (Senna) 17.2 mg PRN BID PRN PO CONSTIPATION; Start 10/04/20 at 15:30 Docusate Sodium (Colace) 100 mg PRN DAILY PRN PO HARD STOOLS; Start 10/04/20 at 15:30 Ondansetron HCl (Zofran) 4 mg PRN Q6HRS PRN IVP NAUSEA/VOMITING; Start 10/04/20 at 15:30 Dextrose (Dextrose 50%-Water Syringe) 12.5 gm PRN Q15MIN PRN IV SEE COMMENTS; Start 10/04/20 at 15:30 Sodium Chloride 1,000 ml @ 100 mls/hr Q10H IV Last administered on 10/05/20at 07:28; Start 10/04/20 at 16:00 Acetaminophen (Tylenol) 650 mg PRN Q4HRS PRN PO TEMP OVER 100.4F OR MILD PAIN; Start 10/04/20 at 15:30 Oxycodone/ Acetaminophen (Percocet 5/325) 1 tab PRN Q4HRS PRN PO MODERATE PAIN 4-6; Start 10/04/20 at 15:30 Morphine Sulfate (Morphine Sulfate) 1 mg PRN Q1HR PRN IV PAIN; Start 10/04/20 at 15:30 Morphine Sulfate (Morphine Sulfate) 2 mg PRN Q2HR PRN IVP SEVERE PAIN 7-10; Start 10/04/20 at 15:30; Stop 10/05/20 at 15:29 Dicyclomine HCl (Bentyl) 10 mg PRN QID PRN PO ABDOMINAL CRAMPS; Start 10/04/20 at 15:30 Active Scripts Active Cephalexin 500 Mg Capsule 1 Cap PO QID 10 Days Hydroxychloroquine Sulfate 200 Mg Tablet 400 Mg PO DAILY 30 Days Polyethylene Glycol 3350 17 Gm Powd.pack 17 Gm PO DAILY 30 Days Reported Melatonin 3 Mg Tablet 1 Tab PO QHS [place]sp[place] Sprinkle (Metoprolol Succinate) 50 Mg Cap.spr.24 50 Mg PO DAILY Meloxicam 7.5 Mg Tablet 1 Tab PO DAILY Lisinopril 10 Mg Tablet 1 Tab PO DAILY Levothyroxine Sodium 50 Mcg Tablet 1 Tab PO DAILY Cymbalta (Duloxetine Hcl) 60 Mg Capsule.dr 1 Cap PO DAILY Clonazepam 2 Mg Tablet 2 Mg PO BID Vitamin D3 (Cholecalciferol (Vitamin D3)) 1,000 Unit Tablet 1 Tab PO DAILY Centrum Silver Tablet (Multivits-Min/Fa/Lycopene/Lut) 1 Each Tablet 1 Each PO DAILY LAST DOSE THIS AM NEXT DOSE TOMORROW AM Fish Oil 1,000 Mg Softgel (Sprakers-3 Fatty Acids/Fish Oil) 1 Each Capsule 1 Each PO DAILY LAST DOSE THIS AM NEXT DOSE TOMORROW AM Combivent Respimat Inhal (Ipratropium/Albuterol Sulfate) 4 Gm Aer.w.adap 1 Inh IH QID MAY RESUME WHEN AT HOME Pantoprazole Sodium (Pantoprazole Sodium) 40 Mg Tablet. 1 Tab PO DAILY LAST DOSE THIS AM NEXT DOSE TOMORROW AM Albuterol Sulfate Conc Neb Soln (Albuterol Sulfate) 2.5 Mg/0.5 Ml Vial.neb 1 Vial NEB BID LAST DOSE THIS AM NEXT DOSE TONIGHT Aspir 81 (Aspirin) 81 Mg Tablet.dr 81 Mg PO LAST DOSE THIS AM NEXT DOSE TOMOOROW AM Allergies Allergies: Coded Allergies: Sulfa (Sulfonamide Antibiotics) (Verified Allergy, Intermediate, 03/10/15) hydrochlorothiazide (Verified Allergy, Intermediate, 09/08/17) Physical Exam General: Alert, Oriented X3, Cooperative Lungs: Clear to auscultation Heart: Regular rate, Normal S1, Normal S2 Abdomen: Normal bowel sounds, Soft, No tenderness, No hepatosplenomegaly, No masses MUSCULOSKELETAL: Other (Ulnar deviation and chronic joint changes from arthritis in both hands) Vitals VITALS Vital Signs Date Time Temp Pulse Resp B/P (MAP) Pulse Ox O2 Delivery O2 Flow Rate FiO2 10/05/20 11:00 97.6 74 20 126/90 (102) 90 Nasal Cannula 2.0 97.6 Labs Labs Laboratory Tests Test 10/04/20 11:04 10/04/20 11:08 10/04/20 11:47 10/04/20 12:50 Stool Occult Blood Negative (NEG) Positive (NEG) White Blood Count 7.2 x10^3/uL (4.0-11.0) Red Blood Count 4.17 x10^6/uL (3.50-5.40) Hemoglobin 10.6 g/dL (12.0-15.5) Hematocrit 32.6 % (36.0-47.0) Mean Corpuscular Volume 78 fL (79-100) Mean Corpuscular Hemoglobin 25 pg (25-35) Mean Corpuscular Hemoglobin Concent 32 g/dL (31-37) Red Cell Distribution Width 19.7 % (11.5-14.5) Platelet Count 286 x10^3/uL (140-400) Neutrophils (%) (Auto) 73 % (31-73) Lymphocytes (%) (Auto) 18 % (24-48) Monocytes (%) (Auto) 7 % (0-9) Eosinophils (%) (Auto) 1 % (0-3) Basophils (%) (Auto) 1 % (0-3) Neutrophils # (Auto) 5.3 x10^3/uL (1.8-7.7) Lymphocytes # (Auto) 1.3 x10^3/uL (1.0-4.8) Monocytes # (Auto) 0.5 x10^3/uL (0.0-1.1) Eosinophils # (Auto) 0.1 x10^3/uL (0.0-0.7) Basophils # (Auto) 0.1 x10^3/uL (0.0-0.2) Prothrombin Time 14.0 SEC (11.7-14.0) Prothromb Time International Ratio 1.1 (0.8-1.1) Activated Partial Thromboplast Time 29 SEC (24-38) Fibrinogen 542 mg/dL (200-440) D-Dimer (Brook) 1.30 ug/mlFEU (0.00-0.50) Sodium Level 133 mmol/L (136-145) Potassium Level 4.7 mmol/L (3.5-5.1) Chloride Level 98 mmol/L (98-107) Carbon Dioxide Level 27 mmol/L (21-32) Anion Gap 8 (6-14) Blood Urea Nitrogen 13 mg/dL (7-20) Creatinine 0.7 mg/dL (0.6-1.0) Estimated GFR (Cockcroft-Gault) 81.6 BUN/Creatinine Ratio 19 (6-20) Glucose Level 93 mg/dL (70-99) Calcium Level 9.0 mg/dL (8.5-10.1) Magnesium Level 1.7 mg/dL (1.8-2.4) Total Bilirubin 0.4 mg/dL (0.2-1.0) Aspartate Amino Transf (AST/SGOT) 46 U/L (15-37) Alanine Aminotransferase (ALT/SGPT) 61 U/L (14-59) Alkaline Phosphatase 438 U/L (46-116) Troponin I Quantitative < 0.017 ng/mL (0.000-0.055) Total Protein 6.7 g/dL (6.4-8.2) Albumin 3.4 g/dL (3.4-5.0) Albumin/Globulin Ratio 1.0 (1.0-1.7) Ethyl Alcohol Level < 10 mg/dL (0-10) Urine Collection Type U cath Urine Color Yellow Urine Clarity Clear Urine pH 6.0 (<5.0-8.0) Urine Specific [place] 1.010 (1.000-1.030) Urine Protein Negative mg/dL (NEG-TRACE) Urine Glucose (UA) Negative mg/dL (NEG) Urine Ketones (Stick) Negative mg/dL (NEG) Urine Blood Small (NEG) Urine Nitrite Negative (NEG) Urine Bilirubin Negative (NEG) Urine Urobilinogen Dipstick 0.2 mg/dL (0.2 mg/dL) Urine Leukocyte Esterase Negative (NEG) Urine RBC Occ /HPF (0-2) Urine WBC 1-4 /HPF (0-4) Urine Squamous Epithelial Cells Few /LPF Urine Bacteria Few /HPF (0-FEW) Urine Mucus Slight /LPF Test 10/05/20 03:30 10/05/20 08:40 White Blood Count 8.2 x10^3/uL (4.0-11.0) 7.2 x10^3/uL (4.0-11.0) Red Blood Count 3.38 x10^6/uL (3.50-5.40) 3.42 x10^6/uL (3.50-5.40) Hemoglobin 8.5 g/dL (12.0-15.5) 8.8 g/dL (12.0-15.5) Hematocrit 26.8 % (36.0-47.0) 26.9 % (36.0-47.0) Mean Corpuscular Volume 79 fL (79-100) 79 fL (79-100) Mean Corpuscular Hemoglobin 25 pg (25-35) 26 pg (25-35) Mean Corpuscular Hemoglobin Concent 32 g/dL (31-37) 33 g/dL (31-37) Red Cell Distribution Width 20.2 % (11.5-14.5) 19.5 % (11.5-14.5) Platelet Count 241 x10^3/uL (140-400) 234 x10^3/uL (140-400) Neutrophils (%) (Auto) 57 % (31-73) Lymphocytes (%) (Auto) 29 % (24-48) Monocytes (%) (Auto) 10 % (0-9) Eosinophils (%) (Auto) 2 % (0-3) Basophils (%) (Auto) 1 % (0-3) Neutrophils # (Auto) 4.7 x10^3/uL (1.8-7.7) Lymphocytes # (Auto) 2.4 x10^3/uL (1.0-4.8) Monocytes # (Auto) 0.8 x10^3/uL (0.0-1.1) Eosinophils # (Auto) 0.2 x10^3/uL (0.0-0.7) Basophils # (Auto) 0.1 x10^3/uL (0.0-0.2) Sodium Level 138 mmol/L (136-145) Potassium Level 4.1 mmol/L (3.5-5.1) Chloride Level 105 mmol/L (98-107) Carbon Dioxide Level 26 mmol/L (21-32) Anion Gap 7 (6-14) Blood Urea Nitrogen 11 mg/dL (7-20) Creatinine 0.6 mg/dL (0.6-1.0) Estimated GFR (Cockcroft-Gault) 97.5 Glucose Level 88 mg/dL (70-99) Calcium Level 8.4 mg/dL (8.5-10.1) Phosphorus Level 3.7 mg/dL (2.6-4.7) Magnesium Level 1.9 mg/dL (1.8-2.4) Laboratory Tests Test 10/04/20 12:50 10/05/20 03:30 10/05/20 08:40 Stool Occult Blood Positive (NEG) White Blood Count 8.2 x10^3/uL (4.0-11.0) 7.2 x10^3/uL (4.0-11.0) Red Blood Count 3.38 x10^6/uL (3.50-5.40) 3.42 x10^6/uL (3.50-5.40) Hemoglobin 8.5 g/dL (12.0-15.5) 8.8 g/dL (12.0-15.5) Hematocrit 26.8 % (36.0-47.0) 26.9 % (36.0-47.0) Mean Corpuscular Volume 79 fL (79-100) 79 fL (79-100) Mean Corpuscular Hemoglobin 25 pg (25-35) 26 pg (25-35) Mean Corpuscular Hemoglobin Concent 32 g/dL (31-37) 33 g/dL (31-37) Red Cell Distribution Width 20.2 % (11.5-14.5) 19.5 % (11.5-14.5) Platelet Count 241 x10^3/uL (140-400) 234 x10^3/uL (140-400) Neutrophils (%) (Auto) 57 % (31-73) Lymphocytes (%) (Auto) 29 % (24-48) Monocytes (%) (Auto) 10 % (0-9) Eosinophils (%) (Auto) 2 % (0-3) Basophils (%) (Auto) 1 % (0-3) Neutrophils # (Auto) 4.7 x10^3/uL (1.8-7.7) Lymphocytes # (Auto) 2.4 x10^3/uL (1.0-4.8) Monocytes # (Auto) 0.8 x10^3/uL (0.0-1.1) Eosinophils # (Auto) 0.2 x10^3/uL (0.0-0.7) Basophils # (Auto) 0.1 x10^3/uL (0.0-0.2) Sodium Level 138 mmol/L (136-145) Potassium Level 4.1 mmol/L (3.5-5.1) Chloride Level 105 mmol/L (98-107) Carbon Dioxide Level 26 mmol/L (21-32) Anion Gap 7 (6-14) Blood Urea Nitrogen 11 mg/dL (7-20) Creatinine 0.6 mg/dL (0.6-1.0) Estimated GFR (Cockcroft-Gault) 97.5 Glucose Level 88 mg/dL (70-99) Calcium Level 8.4 mg/dL (8.5-10.1) Phosphorus Level 3.7 mg/dL (2.6-4.7) Magnesium Level 1.9 mg/dL (1.8-2.4) Images Images CT FINDINGS: Limited images of lung bases show heart size upper limits of normal. Minimal linear scar or atelectasis at both lung bases. No pleural or pericardial effusion. There is dilated fluid-filled thoracic esophagus, unchanged. There is marked dilation of the intrahepatic and extra hepatic biliary tree, similar to prior study. The common hepatic duct measures up to 3.4 cm transversely versus 3.2 cm previously. There is abrupt tapering of the distal CBD at the ampulla, similar to prior study. No definite filling defect or discrete mass. The pancreas is atrophic and there is dilation of the pancreatic duct, unchanged. No inflammatory changes surrounding the gland. The gallbladder is surgically absent. Spleen is normal in size. Adrenal glands and kidneys are unremarkable. No hydronephrosis. There is some cortical scarring at the midpole left kidney. Unopacified GI tract normal in caliber and contour. No bowel wall thickening. No inflammatory stranding in the mesentery. The abdominal aorta is normal in caliber. Appendix is not identified and likely surgically absent. No free fluid or lymphadenopathy. Images of pelvis show nondistended urinary bladder. There is diffuse bladder wall thickening. Uterus and adnexa are unremarkable. Scattered diverticula within the distal colon. No lymphadenopathy or ascites. Bone windows show no acute finding. Multilevel spondylosis. IMPRESSION: 1. Persistent severe dilation of the intrahepatic and extra hepatic biliary tree, similar to prior study. There is no apparent choledocholithiasis or obstructing mass. A distal stricture at the ampulla cannot be excluded. Correlate with laboratory values. 2. Pancreatic atrophy with mild diffuse dilation of the pancreatic duct, unchanged. 3. Diffuse wall thickening of the urinary bladder, nonspecific. Consider acute or chronic cystitis. 4. Dilated fluid-filled thoracic esophagus. Consider achalasia or chronic reflux. Assessment/Plan Assessment/Plan Hematochezia. Brisk onset of bleeding yesterday and today, clinically supportive of diverticular bleed likely enhanced by her prior Plavix therapy. Apparently she was on Plavix because she had a TIA after her leg fracture in rehab back in May. Fortunately up to this point she is never had any bleeding complications. She is known to have diverticular disease on prior colonoscopy. Other lesions cannot be excluded including polyps or cancer but they will not likely bleed to this severity. Intermittent dysphagia and abnormal CT. Her esophagus is dilated with fluid and her story is very suspicious for either achalasia or a distal esophageal stricture. The clinical history of chronic intermittent dysphagia and regurgitation are much more supportive of a motor disorder such as achalasia and will need to be further evaluated. Abnormal alkaline phosphatase and dilated biliary system. She is status post cholecystectomy but these dilations are out of proportion to that surgery. The possibility of a chronic stricture or even a malignancy cannot be excluded however these findings have been chronic documented back at least 2019. This speaks against an aggressive or malignant process. However this will need to be followed up likely with MRCP at a later point. Plan: Clear liquid diet Serial hemoglobins Slow bowel prep starting later today. We need to let the bleeding resolved before we consider colonoscopy which would likely be more diagnostic t hazel therapeutic in this setting. Most diverticular bleeds are not able to be treated with therapeutics via the colonoscope. We will plan colonoscopy either later tomorrow or Tuesday. If her bleeding becomes more brisk, we may need blood transfusions or dimensional radiology. EGD to evaluate her dysphagia and dilated esophagus. If it confirms the absence of a stricture, then barium studies and potentially treatment for presumed achalasia may be appropriate later RICKIE TAN MD Oct 05, 2020 12:52
--- NOTE | 2020-10-05 13:16 | PDOC ---
[employer] PROGRESS NOTE Date of Service DOS: DATE: 10/05/20 TIME: 13:15 Chief Complaint Chief Complaint Acute lower GI bleed Intra and extrahepatic biliary duct dilatation, possible CBD ampulla stenosis Acute electrolyte derangementhyponatremia, Hypomagnesemia, possible volume depletion Severe alkaline phosphatase elevation Transaminitis History of essential hypertension History of COPD History of GERD History of anxiety and depression History of rheumatoid arthritis History of ORIF in May 2020 for right hip fracture History of Present Illness History of Present Illness 10/05/2020 Patient seen and examined She has a large amount of blood in her commode that she passed this morning Discussed with RN Chart reviewed Hemoglobin currently 8.8 She has IV Protonix hanging Vitals/I&O Vitals/I&O: Vital Signs Date Time Temp Pulse Resp B/P (MAP) Pulse Ox O2 Delivery O2 Flow Rate FiO2 10/05/20 11:00 97.6 74 20 126/90 (102) 90 Nasal Cannula 2.0 97.6 I & O 10/04/20 10/04/20 10/05/20 15:00 23:00 07:00 Intake Total 120 ml 0 ml Balance 120 ml 0 ml Physical Exam General: Alert, Oriented X3, Cooperative Heart: Regular rate, Normal S1, Normal S2 Abdomen: Normal bowel sounds, Soft, No tenderness, No hepatosplenomegaly, No masses Labs Labs: Laboratory Tests Test 10/05/20 03:30 10/05/20 08:40 White Blood Count 8.2 x10^3/uL (4.0-11.0) 7.2 x10^3/uL (4.0-11.0) Red Blood Count 3.38 x10^6/uL (3.50-5.40) 3.42 x10^6/uL (3.50-5.40) Hemoglobin 8.5 g/dL (12.0-15.5) 8.8 g/dL (12.0-15.5) Hematocrit 26.8 % (36.0-47.0) 26.9 % (36.0-47.0) Mean Corpuscular Volume 79 fL (79-100) 79 fL (79-100) Mean Corpuscular Hemoglobin 25 pg (25-35) 26 pg (25-35) Mean Corpuscular Hemoglobin Concent 32 g/dL (31-37) 33 g/dL (31-37) Red Cell Distribution Width 20.2 % (11.5-14.5) 19.5 % (11.5-14.5) Platelet Count 241 x10^3/uL (140-400) 234 x10^3/uL (140-400) Neutrophils (%) (Auto) 57 % (31-73) Lymphocytes (%) (Auto) 29 % (24-48) Monocytes (%) (Auto) 10 % (0-9) Eosinophils (%) (Auto) 2 % (0-3) Basophils (%) (Auto) 1 % (0-3) Neutrophils # (Auto) 4.7 x10^3/uL (1.8-7.7) Lymphocytes # (Auto) 2.4 x10^3/uL (1.0-4.8) Monocytes # (Auto) 0.8 x10^3/uL (0.0-1.1) Eosinophils # (Auto) 0.2 x10^3/uL (0.0-0.7) Basophils # (Auto) 0.1 x10^3/uL (0.0-0.2) Sodium Level 138 mmol/L (136-145) Potassium Level 4.1 mmol/L (3.5-5.1) Chloride Level 105 mmol/L (98-107) Carbon Dioxide Level 26 mmol/L (21-32) Anion Gap 7 (6-14) Blood Urea Nitrogen 11 mg/dL (7-20) Creatinine 0.6 mg/dL (0.6-1.0) Estimated GFR (Cockcroft-Gault) 97.5 Glucose Level 88 mg/dL (70-99) Calcium Level 8.4 mg/dL (8.5-10.1) Phosphorus Level 3.7 mg/dL (2.6-4.7) Magnesium Level 1.9 mg/dL (1.8-2.4) Assessment and Plan Assessmemt and Plan Problems Medical Problems: (1) GI bleeding Status: Acute (2) Microcytic anemia Status: Acute Acute lower GI bleed Intra and extrahepatic biliary duct dilatation, possible CBD ampulla stenosis Acute electrolyte derangementhyponatremia, Hypomagnesemia, possible volume depletion Severe alkaline phosphatase elevation Transaminitis History of essential hypertension History of COPD History of GERD History of anxiety and depression History of rheumatoid arthritis History of ORIF in May 2020 for right hip fracture Plan Trend hemoglobin As needed transfusions IV proton pump inhibitors Await GI input suspect she will need endoscopy Trend labs Home meds DVT prophylaxis Full code N.p.o. Comment Review of Relevant I have reviewed the following items malik (where applicable) has been applied. Medications: Current Medications Medications (Trade) Dose Ordered Sig/James Route PRN Reason Start Time Stop Time Status Last Admin Dose Admin Ceftriaxone Sodium (Rocephin) 1 gm 1X ONCE IVP 10/04/20 14:00 10/04/20 14:01 DC 10/04/20 14:28 Sodium Chloride 1,000 ml @ 100 mls/hr Q10H IV 10/04/20 16:00 10/05/20 07:28 Justifications for Admission Other Justification Lower GI bleeding ANDREW JEAN BAPTISTE III DO Oct 05, 2020 13:16
[2020-10-05 14:37] LABS: HEMATOCRIT 25.5 % (36.0-47.0); HEMOGLOBIN 8.1 g/dL (12.0-15.5); RED BLOOD COUNT 3.18 x10^6/uL (3.50-5.40); RED CELL DISTRIBUTION WIDTH 20.1 % (11.5-14.5)
[2020-10-05 15:00] VITALS: BP 128/88
[2020-10-05] MEDS ORDERED: POLYETHYLENE GLYCOL 3350 BTL 238 GM POWDER PO ONE (16:00)
[2020-10-05] MEDS ORDERED: NON FORMULARY ITEM (Ipratropium/Albuterol Sulfate (Combivent Respimat Inhal) 1 INH) IH SCH (17:00)
[2020-10-05 19:00] VITALS: BP 170/72
[2020-10-05] MEDS: IPRATRPIUM/ALBUTEROL 0.5/2.5MG 3 ML NEBU. NEB SCH ×2 (20:00→21:10)
[2020-10-05] MEDS: clonazePAM 0.5 MG TABLET PO SCH (20:57)
[2020-10-05] MEDS ORDERED: NON FORMULARY ITEM (Albuterol Sulfate (Albuterol Sulfate Conc Neb Soln) 1 VIAL) NEB SCH (21:00)
[2020-10-05 23:01] VITALS: BP 149/65
[2020-10-06] VITALS (15 sets, daily range): BP systolic 124–171; BP diastolic 58–76
[2020-10-06 00:02] LABS: HEMATOCRIT 23.9 % (36.0-47.0); HEMOGLOBIN 7.6 g/dL (12.0-15.5); RED BLOOD COUNT 2.95 x10^6/uL (3.50-5.40); RED CELL DISTRIBUTION WIDTH 20.4 % (11.5-14.5); WHITE BLOOD COUNT 9.8 x10^3/uL (4.0-11.0)
[2020-10-06] MEDS: IV NORMAL SALINE 1000ML BAG 1,000 ML IV SCH ×2 (05:43→18:00)
[2020-10-06] MEDS: LEVOTHYROXINE 50 MCG TABLET PO SCH (06:00)
[2020-10-06 06:07] LABS: HEMATOCRIT 22.4 % (36.0-47.0); HEMOGLOBIN 7.2 g/dL (12.0-15.5); RED BLOOD COUNT 2.76 x10^6/uL (3.50-5.40); RED CELL DISTRIBUTION WIDTH 19.9 % (11.5-14.5); WHITE BLOOD COUNT 8.1 x10^3/uL (4.0-11.0)
[2020-10-06] MEDS: IPRATRPIUM/ALBUTEROL 0.5/2.5MG 3 ML NEBU. NEB SCH ×4 (07:14→19:38)
[2020-10-06] MEDS: OMEGA-3 FATTY ACIDS/FISH OIL 1,000 MG CAPSULE. PO SCH (09:00)
[2020-10-06] MEDS: METOPROLOL SUCC 24HR ER 50 MG TAB.ER.24H. PO SCH (09:00)
[2020-10-06] MEDS: POLYETHYLENE GLYCOL 3350 17 GM PACKET. PO SCH (09:00)
[2020-10-06] MEDS: HYDROXYCHLOROQUINE 200 MG TABLET PO SCH (09:00)
[2020-10-06] MEDS: clonazePAM 0.5 MG TABLET PO SCH ×2 (09:00→20:51)
[2020-10-06] MEDS: LISINOPRIL 10 MG TABLET PO SCH (09:00)
[2020-10-06] MEDS: DULoxetine HCL 30 MG CAPSULE.DR PO SCH (09:00)
[2020-10-06] MEDS: MULTIVITAMIN with MINERAL TABLET. PO SCH (09:00)
[2020-10-06] MEDS: CHOLECALCIFEROL (VITAMIN D3) 1,000 UNIT TABLET PO SCH (09:00)
[2020-10-06] MEDS ORDERED: IV RINGERS,LACTATED 1000ML 1,000 ML IV ONE (11:15)
--- NOTE | 2020-10-06 11:43 | PDOC ---
[employer] PROGRESS NOTE Date of Service DOS: DATE: 10/06/20 TIME: 11:42 Chief Complaint Chief Complaint Acute lower GI bleed Intra and extrahepatic biliary duct dilatation, possible CBD ampulla stenosis Acute electrolyte derangementhyponatremia, Hypomagnesemia, possible volume depletion Severe alkaline phosphatase elevation Transaminitis History of essential hypertension History of COPD History of GERD History of anxiety and depression History of rheumatoid arthritis History of ORIF in May 2020 for right hip fracture History of Present Illness History of Present Illness 10/06/2020 Patient seen and examined Discussed with RN Discussed with case management She is going for colonoscopy later today I believe? Hemoglobin 7.2 10/05/2020 Patient seen and examined She has a large amount of blood in her commode that she passed this morning Discussed with RN Chart reviewed Hemoglobin currently 8.8 She has IV Protonix hanging Vitals/I&O Vitals/I&O: Vital Signs Date Time Temp Pulse Resp B/P (MAP) Pulse Ox O2 Delivery O2 Flow Rate FiO2 10/06/20 11:21 95 Room Air 10/06/20 08:00 1.0 10/06/20 07:30 98.0 68 18 132/60 (84) 98.0 I & O 10/05/20 10/05/20 10/06/20 15:00 23:00 07:00 Intake Total 1000 ml Balance 1000 ml Physical Exam General: Alert, Oriented X3, Cooperative Heart: Regular rate, Normal S1, Normal S2 Abdomen: Normal bowel sounds, Soft, No tenderness, No hepatosplenomegaly, No masses Labs Labs: Laboratory Tests Test 10/05/20 14:25 10/05/20 23:59 10/06/20 05:16 White Blood Count 9.0 x10^3/uL (4.0-11.0) 9.8 x10^3/uL (4.0-11.0) 8.1 x10^3/uL (4.0-11.0) Red Blood Count 3.18 x10^6/uL (3.50-5.40) 2.95 x10^6/uL (3.50-5.40) 2.76 x10^6/uL (3.50-5.40) Hemoglobin 8.1 g/dL (12.0-15.5) 7.6 g/dL (12.0-15.5) 7.2 g/dL (12.0-15.5) Hematocrit 25.5 % (36.0-47.0) 23.9 % (36.0-47.0) 22.4 % (36.0-47.0) Mean Corpuscular Volume 80 fL (79-100) 81 fL (79-100) 81 fL (79-100) Mean Corpuscular Hemoglobin 25 pg (25-35) 26 pg (25-35) 26 pg (25-35) Mean Corpuscular Hemoglobin Concent 32 g/dL (31-37) 32 g/dL (31-37) 32 g/dL (31-37) Red Cell Distribution Width 20.1 % (11.5-14.5) 20.4 % (11.5-14.5) 19.9 % (11.5-14.5) Platelet Count 233 x10^3/uL (140-400) 257 x10^3/uL (140-400) 219 x10^3/uL (140-400) Assessment and Plan Assessmemt and Plan Problems Medical Problems: (1) GI bleeding Status: Acute (2) Microcytic anemia Status: Acute Acute lower GI bleed Intra and extrahepatic biliary duct dilatation, possible CBD ampulla stenosis Acute electrolyte derangementhyponatremia, Hypomagnesemia, possible volume depletion Severe alkaline phosphatase elevation Transaminitis History of essential hypertension History of COPD History of GERD History of anxiety and depression History of rheumatoid arthritis History of ORIF in May 2020 for right hip fracture Plan Going for colonoscopy later today? For now continue the following; Trend hemoglobin As needed transfusions IV proton pump inhibitors Home meds DVT prophylaxis Full code N.p.o. Comment Review of Relevant I have reviewed the following items malik (where applicable) has been applied. Medications: Current Medications Medications (Trade) Dose Ordered Sig/James Route PRN Reason Start Time Stop Time Status Last Admin Dose Admin Polyethylene Glycol (miraLAX Powder BULK BOTTLE) 238 gm 1X ONCE PO 10/05/20 16:00 10/05/20 16:01 DC 10/05/20 16:54 Clonazepam (KlonoPIN) 2 mg BID PO 10/05/20 21:00 10/05/20 20:57 Albuterol/ Ipratropium (Duoneb) 3 ml RTQID NEB 10/05/20 17:15 10/06/20 11:21 Justifications for Admission Other Justification Lower GI bleeding ANDREW JEAN BAPTISTE III DO Oct 06, 2020 11:43
--- NOTE | 2020-10-06 12:43 | NUR ---
SW following. Discussed with RN, pt from home, room air, NPO, gets around fine per RN. Pt hgn has been dropping, scheduled for a colonoscopy today. Pt is current with [facility]. RN advised no SW needs at this time. SW will continue to follow.
[2020-10-06 14:05] LABS: HEMATOCRIT 21.3 % (36.0-47.0); RED BLOOD COUNT 2.66 x10^6/uL (3.50-5.40); RED CELL DISTRIBUTION WIDTH 20.1 % (11.5-14.5); WHITE BLOOD COUNT 7.9 x10^3/uL (4.0-11.0)
[2020-10-06] MEDS ORDERED: PROPOFOL 10 MG/ML (20ML) VIAL. IV ONE (14:17)
[2020-10-06] MEDS ORDERED: LIDOCAINE 2% PF 5 ML VIAL. ONE (14:17)
--- NOTE | 2020-10-06 16:50 | PDOC4 ---
PROCEDURE Procedure Colonoscopy GI bleeding Anesthesia- propofol retained stool in colon but able to see most areas- severe diverticulosis in sigmoid and descending colon. some old blood but no further active bleeding Plan- resume diet Hold plavix for 2 weeks go ahead with transfusion now that Hgb down to 7 RICKIE TAN MD Oct 06, 2020 16:50
[2020-10-06 23:36] LABS: HEMATOCRIT 23.4 % (36.0-47.0); HEMOGLOBIN 7.7 g/dL (12.0-15.5); RED BLOOD COUNT 2.95 x10^6/uL (3.50-5.40); RED CELL DISTRIBUTION WIDTH 18.2 % (11.5-14.5)
[2020-10-07 03:45] VITALS: BP 113/59
[2020-10-07] MEDS: IV NORMAL SALINE 1000ML BAG 1,000 ML IV SCH ×2 (06:29→14:00)
[2020-10-07] MEDS: LEVOTHYROXINE 50 MCG TABLET PO SCH (06:29)
[2020-10-07] MEDS: IPRATRPIUM/ALBUTEROL 0.5/2.5MG 3 ML NEBU. NEB SCH ×3 (07:07→15:10)
[2020-10-07 07:42] VITALS: BP 128/65
[2020-10-07] MEDS: CHOLECALCIFEROL (VITAMIN D3) 1,000 UNIT TABLET PO SCH (07:50)
[2020-10-07] MEDS: clonazePAM 0.5 MG TABLET PO SCH (07:50)
[2020-10-07] MEDS: DULoxetine HCL 30 MG CAPSULE.DR PO SCH (07:50)
[2020-10-07] MEDS: MULTIVITAMIN with MINERAL TABLET. PO SCH (07:50)
[2020-10-07] MEDS: HYDROXYCHLOROQUINE 200 MG TABLET PO SCH (07:50)
[2020-10-07] MEDS: OMEGA-3 FATTY ACIDS/FISH OIL 1,000 MG CAPSULE. PO SCH (07:50)
[2020-10-07] MEDS: LISINOPRIL 10 MG TABLET PO SCH (07:51)
[2020-10-07] MEDS: POLYETHYLENE GLYCOL 3350 17 GM PACKET. PO SCH (07:51)
[2020-10-07] MEDS: METOPROLOL SUCC 24HR ER 50 MG TAB.ER.24H. PO SCH (07:51)
--- NOTE | 2020-10-07 10:21 | NUR ---
SW following. Discussed with RN, [email or web address], cardiac diet, rapid COVID-19 negative. Therapy recommending SNF. SW met with pt, pt does not want to go SNF, wants to return home with [facility]. Dr. Ann notified. Possible discharge home with [facility] today. RN notified. SW will continue to follow.
[2020-10-07 11:39] VITALS: BP 139/63
[2020-10-07 11:55] LABS: HEMATOCRIT 25.7 % (36.0-47.0); HEMOGLOBIN 8.3 g/dL (12.0-15.5); RED BLOOD COUNT 3.22 x10^6/uL (3.50-5.40); RED CELL DISTRIBUTION WIDTH 18.6 % (11.5-14.5); WHITE BLOOD COUNT 7.9 x10^3/uL (4.0-11.0)
--- NOTE | 2020-10-07 13:07 | PDOC ---
GI PROGRESS NOTES Date of Service: Date/Time DATE: 10/07/20 TIME: 13:06 Subjective Subjective Hgb stable at 8.3 after transfusion, active bleeding resolved Objective Vitals Vital Signs Date Time Temp Pulse Resp B/P (MAP) Pulse Ox O2 Delivery O2 Flow Rate FiO2 10/07/20 11:39 97.9 72 18 139/63 (88) 99 Room Air 97.9 10/07/20 11:15 Room Air 10/07/20 08:00 Room Air 2.0 10/07/20 07:51 70 128/65 10/07/20 07:51 70 128/65 10/07/20 07:42 98.3 70 18 128/65 (86) 96 Room Air 98.3 10/07/20 07:09 98 Room Air 10/07/20 03:45 98.3 74 18 113/59 (77) 97 Room Air 98.3 10/06/20 23:45 98.4 87 18 124/58 (80) 96 Room Air 98.4 10/06/20 19:46 98.6 90 20 131/64 98.6 10/06/20 19:38 96 Room Air 10/06/20 19:20 98.8 87 18 138/61 (86) 97 Room Air 98.8 10/06/20 18:15 88 142/65 (90) 95 10/06/20 18:01 85 171/68 (102) 95 10/06/20 17:45 85 144/67 (92) 99 10/06/20 17:31 67 155/76 (102) 95 10/06/20 17:25 85 156/66 (96) 100 10/06/20 17:08 98.6 84 18 141/74 98.6 10/06/20 16:53 98.8 90 18 127/61 98.8 10/06/20 16:51 98.9 98 18 115/73 97 Room Air 98.9 10/06/20 16:36 98.0 103 18 114/79 97 Nasal Cannula 2 98.0 10/06/20 15:53 Nasal Cannula 1.0 10/06/20 15:53 98 97 18 97 98.0 10/06/20 15:07 95 Room Air 10/06/20 15:05 98.4 93 18 138/63 (88) 93 Nasal Cannula 1.0 98.4 Labs Labs Laboratory Tests Test 10/06/20 13:50 10/06/20 22:53 10/07/20 11:35 White Blood Count 7.9 x10^3/uL (4.0-11.0) 9.0 x10^3/uL (4.0-11.0) 7.9 x10^3/uL (4.0-11.0) Red Blood Count 2.66 x10^6/uL (3.50-5.40) 2.95 x10^6/uL (3.50-5.40) 3.22 x10^6/uL (3.50-5.40) Hemoglobin 7.0 g/dL (12.0-15.5) 7.7 g/dL (12.0-15.5) 8.3 g/dL (12.0-15.5) Hematocrit 21.3 % (36.0-47.0) 23.4 % (36.0-47.0) 25.7 % (36.0-47.0) Mean Corpuscular Volume 80 fL (79-100) 79 fL (79-100) 80 fL (79-100) Mean Corpuscular Hemoglobin 26 pg (25-35) 26 pg (25-35) 26 pg (25-35) Mean Corpuscular Hemoglobin Concent 33 g/dL (31-37) 33 g/dL (31-37) 32 g/dL (31-37) Red Cell Distribution Width 20.1 % (11.5-14.5) 18.2 % (11.5-14.5) 18.6 % (11.5-14.5) Platelet Count 245 x10^3/uL (140-400) 224 x10^3/uL (140-400) 256 x10^3/uL (140-400) Iron Level 37 ug/dL (50-170) Total Iron Binding Capacity 284 ug/dL (250-450) Iron Saturation 13 % (15-34) Assessment Assessment Diverticular bleeding- clinically resolved Plan- resume diet hold Plavix for at least 2 weeks Ok for d/c Justicifation of Admission Dx: Justifications for Admission: Justification of Admission Dx: Yes RICKIE TAN MD Oct 07, 2020 13:07
[2020-10-07] MEDS ORDERED: FERR325T14 PO (13:08)
--- NOTE | 2020-10-07 13:10 | SNU/HH DC ---
DISCHARGE WITH HOME HEALTH DISCHARGE INFORMATION: Discharge Date: Oct 07, 2020 Final Diagnosis: GI bleed iron deficiency symptomatic anemia Problems Medical Problems: (1) GI bleeding Status: Acute (2) Microcytic anemia Status: Acute Condition on Discharge: Stable CODE STATUS: Code Status: Full HOME HEALTH: Face to Face: I certify this patient is under my care and that I, had a face to face encounter that meets the physician face to face encounter requirements with this patient on 10/07. RN For Eval/Treatment: Yes Physical Therapy For: Evalulation/Treatment Occupational Therapy For: Evaluation/Treatment Pt Meets Homebound Status: Unsteady balance w/ amb,, Fatigue w/ amb., Other: (symptomatic anemia) POST DISCHARGE ORDERS: Activity Instructions for Disc: Activity as tolerated Weight Bearing Status after Di: As tolerated Bathing Instructions: Shower-keep dressing dry, No Tub Bath until see Dr. SUAREZ AFTER DISCHARGE: Cardiac Wound/Incision Care: No wound care needed CHECKS AFTER DISCHARGE: Checks after discharge: Check blood press - daily (QOD) FOLLOW-UP: Follow up with: primary care 1 week DC TO SNF LABS: CBC, CMP within 1 week at discharge TREATMENT/EQUIPMENT ORDERS: Adaptive Equipment Issued: None, Front wheeled walker CERTIFICATION STATEMENT: Certification Statement: Certification Statement: Based on the above finding, I certify that this patient is confined to the home and needs intermittent snf care, physical therapy and/or speech therapy, or continues to need occupational therapy.~ This patient is under my care, and I have initiated the establishment of the plan of care.~ This patient will be followed by myself or a community physician who will periodically review the plan of care. Home Meds Active Scripts Ferrous Sulfate (FERROUS SULFATE) 325 Mg Tablet, 1 TAB PO DAILY for iron deficiency anemia, #30 TAB 3 Refills Prov:JOHN RAJPUT MD 10/07/20 Hydroxychloroquine Sulfate (HYDROXYCHLOROQUINE SULFATE) 200 Mg Tablet, 400 MG PO DAILY for RA for 30 Days, #60 TAB Prov:Deirdre QUINTEROS MD 08/01/18 Polyethylene Glycol 3350 (POLYETHYLENE GLYCOL 3350) 17 Gm Powd.pack, 17 GM PO DA ANDREW for constipation for 30 Days, #30 PKT Prov:Deirdre QUINTEROS MD 08/01/18 Reported Medications Metoprolol Succinate (Kapspargo Sprinkle) 50 Mg Cap.spr.24, 50 MG PO DAILY for hypertension 05/08/20 Meloxicam (MELOXICAM) 7.5 Mg Tablet, 1 TAB PO DAILY for inflammation 05/08/20 Lisinopril (LISINOPRIL) 10 Mg Tablet, 1 TAB PO DAILY for hypertension 05/08/20 Levothyroxine Sodium (LEVOTHYROXINE SODIUM) 50 Mcg Tablet, 1 TAB PO DAILY for hypothyroidism 05/08/20 Duloxetine Hcl (CYMBALTA) 60 Mg Capsule.dr, 1 CAP PO DAILY, #90 CAP 3 Refills 09/08/17 Clonazepam (CLONAZEPAM) 2 Mg Tablet, 2 MG PO BID, TAB 09/08/17 Cholecalciferol (Vitamin D3) (VITAMIN D3) 1,000 Unit Tablet, 1 TAB PO DAILY, #30 TAB 5 Refills 03/10/15 Multivits-Min/Fa/Lycopene/Lut (CENTRUM SILVER TABLET) 1 Each Tablet, 1 EACH PO DAILY for SUPPLEMENT LAST DOSE THIS AM NEXT DOSE TOMORROW AM 07/10/14 [place]-3 Fatty Acids/Fish Oil (FISH OIL 1,000 MG SOFTGEL) 1 Each Capsule, 1 EACH PO DAILY for SUPPLEMENT LAST DOSE THIS AM NEXT DOSE TOMORROW AM 07/10/14 Ipratropium/Albuterol Sulfate (COMBIVENT RESPIMAT INHAL) 4 Gm Aer.w.adap, 1 INH IH QID for LUNGS, INHALER MAY RESUME WHEN AT HOME 02/28/14 Pantoprazole Sodium (PANTOPRAZOLE SODIUM ) 40 Mg Tablet.dr, 1 TAB PO DAILY for STOMACH, #30 TAB 3 Refills LAST DOSE THIS AM NEXT DOSE TOMORROW AM 02/28/14 Albuterol Sulfate (ALBUTEROL SULFATE CONC NEB SOLN) 2.5 Mg/0.5 Ml Vial.neb, 1 VIAL NEB BID for LUNGS, #120 VIAL 5 Refills LAST DOSE THIS AM NEXT DOSE TONIGHT 02/28/14 Aspirin (ASPIR 81) 81 Mg Tablet.dr, 81 MG PO for BLOOD THINNER, TAB LAST DOSE THIS AM NEXT DOSE TOMOOROW AM 08/15/13 Discontinued Reported Medications Melatonin (MELATONIN) 3 Mg Tablet, 1 TAB PO QHS for sleep, #30 TAB 05/08/20 JOHN RAJPUT MD Oct 07, 2020 13:10
--- NOTE | 2020-10-07 13:13 | PDOC3 ---
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 Hemoglobin 7.2 Problems Medical Problems: (1) GI bleeding Status: Acute (2) Microcytic anemia Status: Acute Brief Hospital Course Allergies Allergies Coded Allergies Type Severity Reaction Last Updated Verified Sulfa (Sulfonamide Antibiotics) Allergy Intermediate 10/06/20 Yes hydrochlorothiazide Allergy Intermediate 10/06/20 Yes Vital Signs Vital Signs Date Time Temp Pulse Resp B/P (MAP) Pulse Ox O2 Delivery O2 Flow Rate FiO2 10/07/20 11:39 97.9 72 18 139/63 (88) 99 Room Air 97.9 10/07/20 08:00 2.0 Lab Results Laboratory Tests Test 10/05/20 14:25 10/05/20 23:59 10/06/20 05:16 10/06/20 10:45 White Blood Count 9.0 x10^3/uL (4.0-11.0) 9.8 x10^3/uL (4.0-11.0) 8.1 x10^3/uL (4.0-11.0) Red Blood Count 3.18 x10^6/uL (3.50-5.40) 2.95 x10^6/uL (3.50-5.40) 2.76 x10^6/uL (3.50-5.40) Hemoglobin 8.1 g/dL (12.0-15.5) 7.6 g/dL (12.0-15.5) 7.2 g/dL (12.0-15.5) Hematocrit 25.5 % (36.0-47.0) 23.9 % (36.0-47.0) 22.4 % (36.0-47.0) Mean Corpuscular Volume 80 fL (79-100) 81 fL (79-100) 81 fL (79-100) Mean Corpuscular Hemoglobin 25 pg (25-35) 26 pg (25-35) 26 pg (25-35) Mean Corpuscular Hemoglobin Concent 32 g/dL (31-37) 32 g/dL (31-37) 32 g/dL (31-37) Red Cell Distribution Width 20.1 % (11.5-14.5) 20.4 % (11.5-14.5) 19.9 % (11.5-14.5) Platelet Count 233 x10^3/uL (140-400) 257 x10^3/uL (140-400) 219 x10^3/uL (140-400) SARS-CoV-2 Antigen (Rapid) Negative (NEGATIVE) Test 10/06/20 13:50 10/06/20 22:53 10/07/20 11:35 White Blood Count 7.9 x10^3/uL (4.0-11.0) 9.0 x10^3/uL (4.0-11.0) 7.9 x10^3/uL (4.0-11.0) Red Blood Count 2.66 x10^6/uL (3.50-5.40) 2.95 x10^6/uL (3.50-5.40) 3.22 x10^6/uL (3.50-5.40) Hemoglobin 7.0 g/dL (12.0-15.5) 7.7 g/dL (12.0-15.5) 8.3 g/dL (12.0-15.5) Hematocrit 21.3 % (36.0-47.0) 23.4 % (36.0-47.0) 25.7 % (36.0-47.0) Mean Corpuscular Volume 80 fL (79-100) 79 fL (79-100) 80 fL (79-100) Mean Corpuscular Hemoglobin 26 pg (25-35) 26 pg (25-35) 26 pg (25-35) Mean Corpuscular Hemoglobin Concent 33 g/dL (31-37) 33 g/dL (31-37) 32 g/dL (31-37) Red Cell Distribution Width 20.1 % (11.5-14.5) 18.2 % (11.5-14.5) 18.6 % (11.5-14.5) Platelet Count 245 x10^3/uL (140-400) 224 x10^3/uL (140-400) 256 x10^3/uL (140-400) Iron Level 37 ug/dL (50-170) Total Iron Binding Capacity 284 ug/dL (250-450) Iron Saturation 13 % (15-34) Laboratory Tests Test 10/06/20 13:50 10/06/20 22:53 10/07/20 11:35 White Blood Count 7.9 x10^3/uL (4.0-11.0) 9.0 x10^3/uL (4.0-11.0) 7.9 x10^3/uL (4.0-11.0) Red Blood Count 2.66 x10^6/uL (3.50-5.40) 2.95 x10^6/uL (3.50-5.40) 3.22 x10^6/uL (3.50-5.40) Hemoglobin 7.0 g/dL (12.0-15.5) 7.7 g/dL (12.0-15.5) 8.3 g/dL (12.0-15.5) Hematocrit 21.3 % (36.0-47.0) 23.4 % (36.0-47.0) 25.7 % (36.0-47.0) Mean Corpuscular Volume 80 fL (79-100) 79 fL (79-100) 80 fL (79-100) Mean Corpuscular Hemoglobin 26 pg (25-35) 26 pg (25-35) 26 pg (25-35) Mean Corpuscular Hemoglobin Concent 33 g/dL (31-37) 33 g/dL (31-37) 32 g/dL (31-37) Red Cell Distribution Width 20.1 % (11.5-14.5) 18.2 % (11.5-14.5) 18.6 % (11.5-14.5) Platelet Count 245 x10^3/uL (140-400) 224 x10^3/uL (140-400) 256 x10^3/uL (140-400) Iron Level 37 ug/dL (50-170) Total Iron Binding Capacity 284 ug/dL (250-450) Iron Saturation 13 % (15-34) Brief Hospital Course Ms. Jamil is a 75 old admti for melena, with red blood, GI bleed, PRBC given for Hgb under 7 COLONSCOPY, Dr. Wills on 10/06. retained stool in colon but able to see most areas- severe diverticulosis in sigmoid and descending colon. some old blood but no further active bleeding Hold plavix for 2 weeks IV iron, then PO, she felt better and wanted to resume home health, declined group home sub acute rehab Discharge Information Condition at Discharge: Improved Follow Up: Weeks Disposition/Orders: D/C to Home w/ HH Scheduled Albuterol Sulfate (Albuterol Sulfate Conc Neb Soln) 2.5 Mg/0.5 Ml Vial.neb, 1 VIAL NEB BID for LUNGS, #120 Ref 5 (Reported) LAST DOSE THIS AM NEXT DOSE TONIGHT Entered as Reported by: Natacha Negron on 02/28/141728 Last Action: Converted on 10/05/201702 by AUSTEN LOWERY RN Cholecalciferol (Vitamin D3) (Vitamin D3) 1,000 Unit Tablet, 1 TAB PO DAILY, #30 Ref 5 (Reported) Entered as Reported by: JAYDE FAUST on 03/10/15 0732 Last Action: Continued on 10/05/201702 by AUSTEN LOWERY RN Clonazepam (Clonazepam) 2 Mg Tablet, 2 MG PO BID, (Reported) Entered as Reported by: FREDDY SHULTZ RN on 09/08/171834 Last Action: Converted on 10/05/201702 by AUSTEN LOWERY RN Duloxetine Hcl (Cymbalta) 60 Mg Capsule., 1 CAP PO DAILY, #90 Ref 3 (Reported) Entered as Reported by: FREDDY SHULTZ RN on 09/08/171834 Last Action: Converted on 10/05/201702 by AUSTEN LOWERY RN Ferrous Sulfate (Ferrous Sulfate) 325 Mg Tablet, 1 TAB PO DAILY for iron deficiency anemia, #30 Ref 3 Prescribed by: JOHN RAJPUT on 10/07/20 1308 Hydroxychloroquine Sulfate (Hydroxychloroquine Sulfate) 200 Mg Tablet, 400 MG PO DAILY for RA for 30 Days, #60 Prescribed by: ANNA SINGH MD on 08/01/18 1333 Last Action: Continued on 10/05/201702 by AUSTEN LOWERY RN Ipratropium/Albuterol Sulfate (Combivent Respimat Inhal) 4 Gm Aer.w.adap, 1 INH IH QID for LUNGS, (Reported) MAY RESUME WHEN AT HOME Entered as Reported by: Natacha Negron on 02/28/14 1729 Last Action: Converted on 10/05/201702 by AUSTEN LOWERY RN Levothyroxine Sodium (Levothyroxine Sodium) 50 Mcg Tablet, 1 TAB PO DAILY for hypothyroidism, (Reported) Entered as Reported by: VIRGINIA REYEZ on 05/08/20 150 Last Action: Continued on 10/05/201702 by AUSTEN LOWERY RN Lisinopril (Lisinopril) 10 Mg Tablet, 1 TAB PO DAILY for hypertension, (Reported) Entered as Reported by: VIRGINIA REYEZ on 05/08/20 150 Last Action: Continued on 10/05/201702 by AUSTEN LOWERY RN Meloxicam (Meloxicam) 7.5 Mg Tablet, 1 TAB PO DAILY for inflammation, (Reported) Entered as Reported by: VIRGINIA REYEZ on 05/08/20 150 Last Action: Reviewed on 10/04/201735 by APOLONIA YEPEZ RN Metoprolol Succinate (Kapspargo Sprinkle) 50 Mg Cap.spr.24, 50 MG PO DAILY for hypertension, (Reported) Entered as Reported by: VIRGINIA REYEZ on 05/08/20 150 Last Action: Converted on 10/05/201702 by AUSTEN LOWERY RN Multivits-Min/Fa/Lycopene/Lut (Centrum Silver Tablet) 1 Each Tablet, 1 EACH PO DAILY for SUPPLEMENT, (Reported) LAST DOSE THIS AM NEXT DOSE TOMORROW AM Entered as Reported by: MARIEL MARQUEZ on 07/10/14 144 Last Action: Converted on 10/05/201702 by AUSTEN LOWERY RN [place]-3 Fatty Acids/Fish Oil (Fish Oil 1,000 Mg Softgel) 1 Each Capsule, 1 EACH PO DAILY for SUPPLEMENT, (Reported) LAST DOSE THIS AM NEXT DOSE TOMORROW AM Entered as Reported by: MARIEL MARQUEZ on 07/10/14 1444 Last Action: Converted on 10/05/201702 by AUSTEN LOWERY, RN Pantoprazole Sodium (Pantoprazole Sodium ) 40 Mg Tablet.dr, 1 TAB PO DAILY for STOMACH, #30 Ref 3 (Reported) LAST DOSE THIS AM NEXT DOSE TOMORROW AM Entered as Reported by: Natacha Negron on 02/28/14 1729 Polyethylene Glycol 3350 (Polyethylene Glycol 3350) 17 Gm Powd.pack, 17 GM PO DAILY for constipation for 30 Days, #30 Prescribed by: ANNA SINGH MD on 08/01/18 1333 Last Action: Continued on 10/05/20 170 by AUSTEN LOWERY, RN Miscellaneous Medications Aspirin (Aspir 81) 81 Mg Tablet., 81 MG PO for BLOOD THINNER, (Reported) LAST DOSE THIS AM NEXT DOSE TOMOOROW AM Entered as Reported by: LILA CUMMINGS on 08/15/13 1200 Last Action: Reviewed on 10/04/201735 by APOLONIA YEPEZ RN Discontinued Medications Melatonin (Melatonin) 3 Mg Tablet, 1 TAB PO QHS for sleep, #30 (Reported) Entered as Reported by: VIRGINIA REYEZ on 05/08/20 1505 Last Action: Discontinued on 10/05/201654 by AUSTEN LOWERY RN Patient Instructions Patient Instructions > 34 min face to face [facility] health cont current IV iron given before DC, start PO iron daily only as history of constipation, f/u Dr. Singh Justicifation of Admission Dx: Justifications for Admission: Justification of Admission Dx: Yes JOHN RAJPUT MD Oct 07, 2020 13:13
[2020-10-07] MEDS ORDERED: IRON SUCROSE COMPLEX 200 MG in IV NORMAL SALINE 100ML 100 ML IV ONE (14:00)
[2020-10-07 15:37] VITALS: BP 136/64
--- NOTE | 2020-10-07 16:49 | NUR ---
Pt was read discharge packet/instructions no questions from pt. Pt's IV was taken out, heart monitor taken off, pt was stable when leaving unit.
== END 2020-10-07 16:30 | disposition home health service (06) | DRG 377 ==
LOC: ER 11:00 → ED HOLD 13:35 → 6 SOUTH 16:14
PROVIDERS: ADMIT Internal Medicine; ATTEND Internal Medicine
PROC: 30233N1 Transfusion of Nonautologous Red Blood Cells into Peripheral Vein, Percutaneous Approach (ICD-10-PCS; 2020-10-06)
PROC: 0DJD8ZZ Inspection of Lower Intestinal Tract, Via Natural or Artificial Opening Endoscopic (ICD-10-PCS; principal; 2020-10-06 16:00)
DX: K57.31 Diverticulosis of large intestine without perforation or abscess with bleeding (principal); K83.1 Obstruction of bile duct; J96.01 Acute respiratory failure with hypoxia; E87.1 Hypo-osmolality and hyponatremia; D50.9 Iron deficiency anemia, unspecified; E03.9 Hypothyroidism, unspecified; I10 Essential (primary) hypertension; J44.9 Chronic obstructive pulmonary disease, unspecified; K21.9 Gastro-esophageal reflux disease without esophagitis; M06.9 Rheumatoid arthritis, unspecified; Z82.49 Family history of ischemic heart disease and other diseases of the circulatory system; Z86.73 Personal history of transient ischemic attack (TIA), and cerebral infarction without residual deficits; Z90.49 Acquired absence of other specified parts of digestive tract; Z96.652 Presence of left artificial knee joint; F32.9 Major depressive disorder, single episode, unspecified; F41.9 Anxiety disorder, unspecified; G47.30 Sleep apnea, unspecified; M19.90 Unspecified osteoarthritis, unspecified site; Z88.5 Allergy status to narcotic agent; Z88.2 Allergy status to sulfonamides; E83.42 Hypomagnesemia; R74.8 Abnormal levels of other serum enzymes; R74.01 Elevation of levels of liver transaminase levels; R13.10 Dysphagia, unspecified; K83.8 Other specified diseases of biliary tract; Z20.822 Contact with and (suspected) exposure to COVID-19
CPT/HCPCS: 36415; 36430; 45378; 71045; 74177; 76700; 80048; 80053; 81001; 82274; 83540; 83550; 83735; 84100; 84484; 85025; 85027; 85379; 85384; 85610; 85730; 86850; 86900; 86901; 86920; 87426; 93005; 94640; 94760; 96374; 96375; C9113; G0480; J0696; J1756; J2704; J7030; J7120; P9016; Q9967; 97116-GP; 97530-GO; 97530-GP; 97535-GO; 99285-25; G0378

== ENCOUNTER 2020-12-08 11:28 | Emergency (ER) | payer MEDICARE, MEDICAID ==
[~2020-12-08] VITALS: Ht 160 cm; Wt 113.6 kg
--- NOTE | 2020-12-08 12:32 | RAD ---
EXAM: CHEST ONE VIEW. HISTORY: Weakness. COMPARISON: 10/04/2020. FINDINGS: A frontal view of the chest is obtained. There are no confluent infiltrates. There is no pneumothorax or pleural effusion. The heart is mildly enlarged. The aorta is calcified and tortuous. A reverse right total shoulder arthroplasty is noted. IMPRESSION: 1. Mild cardiomegaly. Electronically signed by: Davina Roberson MD (12/08/2020 12:29 PM) [id number]
--- NOTE | 2020-12-08 12:42 | RAD ---
EXAM: CT HEAD WITHOUT CONTRAST. HISTORY: Weakness. TECHNIQUE: Computed tomography of the head was performed without intravenous contrast. One or more of the following individualized dose reduction techniques were utilized for this examination: 1. Automated exposure control. 2. Adjustment of the mA and/or kV according to patient size. 3. Use of iterative reconstruction technique. COMPARISON: 05/08/2020. FINDINGS: There is no intracranial hemorrhage. Hypoattenuation within the periventricular white matte r indicates mild chronic microangiopathic change. There is a chronic lacunar infarct in the left cere bellar hemisphere. The ventricles are normal in size and position. The right aspect of the sphenoid sinus is opacified with fluid. It also contains dense material sugge sting chronic fungal elements. There are changes of bilateral maxillary sinus decompressive surgery. There are changes of bilateral cataract surgery. The temporal bones are unremarkable. The calvarium r eveals no suspicious lesions. There are atherosclerotic calcifications of the internal carotid and ve rtebral arteries. There are erosive changes at both temporomandibular joints. IMPRESSION: 1. No acute intracranial findings. 2. Mild atrophy and chronic microangiopathic white matter change. 3. Acute on chronic sphenoid sinus disease. Electronically signed by: Davina Roberson MD (12/08/2020 12:40 PM) [id number]
--- NOTE | 2020-12-08 13:11 | PHYS DOC ---
Past Medical History Past Medical History: Anxiety, Asthma, COPD, Depression, GERD, Hypertension, Other Additional Past Medical Histor: thyroid issue, SLEEP APNEA/RA,REYNAUD'S Past Surgical History: Appendectomy, Cholecystectomy, Knee Replacement Additional Past Surgical Histo: left rotator cuff X 3,hernia, RT/LT FEMUR, L ANKLE HARDWARE, CATAR Smoking Status: Never Smoker Alcohol Use: None Drug Use: None General Adult EDM: Chief Complaint: WEAKNESS/GENERALIZED HPI: HPI: Patient is a 75 year old female presents to the emergency department chief complaint of weakness and dizziness since yesterday, patient denies fever chills, chest pains, shortness of breath, chest congestion, or visual disturbances. Patient denies receiving the COVID-19 virus vaccination stating that she has heard the side effects are worse than having the COVID-19 virus itself. Patient denies abdominal pains, nausea, vomiting, or diarrhea. Patient states that she thinks she is on too many medications and wonders if one of her medications is making her feel this way. Patient reports a past medical history of anxiety, depression, GERD, Raynaud's disease, hypertension, hyperlipidemia, thyroid problems. Patient denies any other physical complaints or concerns. Review of Systems: Review of Systems: 14 body systems of review of systems have been reviewed. See HPI for pertinent positives and negative responses, otherwise all other systems are negative, nonpertinent or noncontributory. Constitutional: Negative except as outlined in HPI above. Skin: Negative except as outlined in HPI above. Eyes: Negative except as outlined in HPI above. HENT: Negative except as outlined in HPI above. Respiratory: Negative except as outlined in HPI above. Cardiovascular: Negative except as outlined in HPI above. GI: Negative except as outlined in HPI above. : Negative except as outlined in HPI above. Musculoskeletal: Negative except as outlined in HPI above. Integument: Negative except as outlined in HPI above. Neurologic: Negative except as outlined in HPI above. Endocrine: Negative except as outlined in HPI above. Lymphatic: Negative except as outlined in HPI above. Psychiatric: Negative except as outlined in HPI above. Heart Score: C/O Chest Pain: No Risk Factors: Risk Factors: DM, Current or recent (<one month) smoker, HTN, HLP, family h istory of CAD, obesity. Risk Scores: Score 0 - 3: 2.5% MACE over next 6 weeks - Discharge Home Score 4 - 6: 20.3% MACE over next 6 weeks - Admit for Clinical Observation Score 7 - 10: 72.7% MACE over next 6 weeks - Early Invasive Strategies Allergies: Allergies: Allergies Coded Allergies Type Severity Reaction Last Updated Verified Sulfa (Sulfonamide Antibiotics) Allergy Intermediate 10/06/20 Yes hydrochlorothiazide Allergy Intermediate 10/06/20 Yes Physical Exam: PE: Constitutional: Well developed, well nourished, no acute distress, non-toxic appearance. 75-year-old female in no apparent distress. HENT: Normocephalic, atraumatic. Eyes: Conjunctiva normal, no discharge. Neck: Normal range of motion, no stridor. Cardiovascular: No cyanosis appreciated, distal cap refill less than 2 seconds. Sounds S1-S2 to auscultation. Lungs & Thorax: Patient is in no respiratory distress, no audible adventitious lung sounds appreciated. Lung sounds clear to auscultate all lung [place]. Abdomen: Nontender, no abnormalities noted. Skin: Warm, dry, no erythema, no rash. Back: No tenderness, no deformities. Extremities: No tenderness, no cyanosis, no clubbing, ROM intact, no edema. Distal cap refill less than 2 seconds, right hand upper extremity contractures of fingers 3 4 and 5 consistent with patient's history of trigger fingers. Neurologic: Alert and oriented X 3, normal motor function, normal sensory function, no focal deficits noted. Patient ambulates with normal gait. Psychologic: Affect normal, judgement normal, mood normal. Current Patient Data: Labs: Laboratory Tests Test 12/08/20 13:15 12/08/20 13:30 12/08/20 14:00 Urine Collection Type Void Urine Color Yellow Urine Clarity Clear Urine pH 8.0 Urine Specific [place] <=1.005 Urine Protein Negative mg/dL Urine Glucose (UA) Negative mg/dL Urine Ketones (Stick) Negative mg/dL Urine Blood Trace Urine Nitrite Negative Urine Bilirubin Negative Urine Urobilinogen Dipstick 0.2 mg/dL Urine Leukocyte Esterase Small Urine RBC 1-2 /HPF Urine WBC 1-4 /HPF Urine Squamous Epithelial Cells Few /LPF Urine Bacteria Few /HPF SARS-CoV-2 Antigen (Rapid) Negative White Blood Count 10.8 x10^3/uL Red Blood Count 4.62 x10^6/uL Hemoglobin 12.9 g/dL Hematocrit 38.7 % Mean Corpuscular Volume 84 fL Mean Corpuscular Hemoglobin 28 pg Mean Corpuscular Hemoglobin Concent 33 g/dL Red Cell Distribution Width 17.1 % Platelet Count 251 x10^3/uL Neutrophils (%) (Auto) 77 % Lymphocytes (%) (Auto) 15 % Monocytes (%) (Auto) 7 % Eosinophils (%) (Auto) 1 % Basophils (%) (Auto) 1 % Neutrophils # (Auto) 8.3 x10^3/uL Lymphocytes # (Auto) 1.6 x10^3/uL Monocytes # (Auto) 0.7 x10^3/uL Eosinophils # (Auto) 0.1 x10^3/uL Basophils # (Auto) 0.1 x10^3/uL Sodium Level 137 mmol/L Potassium Level 5.0 mmol/L Chloride Level 101 mmol/L Carbon Dioxide Level 27 mmol/L Anion Gap 9 Blood Urea Nitrogen 20 mg/dL Creatinine 0.8 mg/dL Estimated GFR (Cockcroft-Gault) 69.9 BUN/Creatinine Ratio 25 Glucose Level 88 mg/dL Calcium Level 9.6 mg/dL Total Bilirubin 0.5 mg/dL Aspartate Amino Transf (AST/SGOT) 90 U/L Alanine Aminotransferase (ALT/SGPT) 46 U/L Alkaline Phosphatase 217 U/L Troponin I Quantitative < 0.017 ng/mL YF-Oko-D-Type Natriuretic Peptide 164 pg/mL Total Protein 6.4 g/dL Albumin 3.7 g/dL Albumin/Globulin Ratio 1.4 Vital Signs: Vital Signs Date Time Temp Pulse Resp B/P (MAP) Pulse Ox O2 Delivery O2 Flow Rate FiO2 12/08/20 11:30 97.7 69 18 146/101 (88) 96 Room Air 97.7 EKG: EKG: EKG performed at 1145 shows a normal sinus rhythm with left axis deviation, otherwise no ectopy, heart rate 63 bpm, IN interval 0.194, QTc interval 0.439, no acute STEMI, no ACS, no acute ischemia appreciated, EKG interpreted by ED attending physician Dr. Trammell. Radiology/Procedures: Radiology/Procedures: PATIENT: ISABELA RODARTECCOUNT: [id number] : 1945 LOCATION: ER AGE: 75 SEX: F EXAM STATUS: PRE ER ORD. PHYSICIAN: GUILLERMINA MCWILLIAMS APRN REASON: weakness PROCEDURE: CT HEAD WO CONTRAST EXAM: CT HEAD WITHOUT CONTRAST. HISTORY: Weakness. TECHNIQUE: Computed tomography of the head was performed without intravenous contrast. One or more of the following individualized dose reduction techniques were utilized for this examination: 1. Automated exposure control. 2. Adjustment of the mA and/or kV according to patient size. 3. Use of iterative reconstruction technique. COMPARISON: 05/08/2020. FINDINGS: There is no intracranial hemorrhage. Hypoattenuation within the periventricular white matter indicates mild chronic microangiopathic change. There is a chronic lacunar infarct in the left cerebellar hemisphere. The ventricles are normal in size and position. The right aspect of the sphenoid sinus is opacified with fluid. It also contains dense material suggesting chronic fungal elements. There are changes of bilateral maxillary sinus decompressive surgery. There are changes of bilateral cataract surgery. The temporal bones are unremarkable. The calvarium reveals no suspicious lesions. There are atherosclerotic calcifications of the internal carotid and vertebral arteries. There are erosive changes at both temporomandibular joints. IMPRESSION: 1. No acute intracranial findings. 2. Mild atrophy and chronic microangiopathic white matter change. 3. Acute on chronic sphenoid sinus disease. EXAM: CHEST ONE VIEW. HISTORY: Weakness. COMPARISON: 10/04/2020. FINDINGS: A frontal view of the chest is obtained. There are no confluent infiltrates. There is no pneumothorax or pleural effusion. The heart is mildly enlarged. The aorta is calcified and tortuous. A reverse right total shoulder arthroplasty is noted. IMPRESSION: 1. Mild cardiomegaly. Electronically signed by: Davina Roberson MD (12/08/2020 12:29 PM) [id number] DICTATED and SIGNED BY: VEAD ROBERSON MD DATE: 12/08/20 [id number] Course & Med Decision Making: Course & Med Decision Making Pertinent Labs and Imaging studies reviewed. (See chart for details) 75-year-old female, vital signs reviewed, presents to the emergency department complaining of weakness and dizziness since yesterday. Physical examination unremarkable, will order CT head, chest x-ray, cardiorespiratory work-up. Urinalysis assay. Patient's urine is not infected, patient is EKG nonconcerning, chest x-ray and CT head nonconcerning for acute process. Patient serum lab work unremarkable. Discussed findings with patient, offered admission for weakness for further evaluation, patient states she thinks it is just her medications and will follow up with her primary care physician for reevaluation of her medications. Patient states she wanted to make sure she was not having a stroke. Discussed with patient CT head was negative, she shows no signs of strokelike symptoms. Patient reports she feels assured and is ready to go home. Discussed with the patient all findings and diagnostic testing as well as the need to follow-up with their primary care provider for further evaluation and treatment or return to the ED if any new or worsening symptoms. Strict return precautions were also discussed at length, the patient voiced understanding and agreement with the discharge planning. The patient was nontoxic in appearance, in no apparent distress, and hemodynamically stable at the time of disposition. Dragon Disclaimer: Dragon Disclaimer: This electronic medical record was generated, in whole or in part, using a voice recognition dictation system. Departure Departure Impression: Primary Impression: Anxiety about health Disposition: 01 HOME / SELF CARE / HOMELESS Condition: GOOD Referrals: Deirdre QUINTEROS MD (PCP) Additional Instructions: You were seen today in the emergency department for weakness and dizziness at home. A full cardiorespiratory work-up was performed along with a CT scan of your head, the CT scan did not show any bleeding of the brain or any signs of stroke. Your urine was not infected, you did not have a urinary tract infection. Your blood lab work was within normal limits, there was no sign of infection or other concerns. As we discussed at length, please follow-up with your primary care doctor for ongoing care and concerns about the medications you take at home. Thank you for visiting our Emergency Department. It was a pleasure taking care of you today in the emergency department and we appreciate you trusting us with your care. If any additional problems come up don't hesitate to return to visit us. Please follow up with your primary care provider so they can plan additional care if needed and know about the problem that you had. If symptoms worsen come back to the Emergency Department. Any concerning symptoms that start such as chest pain, shortness of air, weakness or numbness on one side of the body, running high fevers or any other concerning symptoms return to the ER. EMERGENCY DEPARTMENT GENERAL DISCHARGE INSTRUCTIONS Thank you for coming to [facility] Emergency Department (ED) today and trusting us with you care. We trust that you had a positive experience in our Emergency Department. If you wish to speak to the department management, you may call the Director at [phone]. YOUR FOLLOW UP INSTRUCTIONS ARE FOLLOWS: 1. Do you have a private Doctor? If you do not have a private doctor, please ask for a resource list of physicians or clinics that may be able to assist you with follow up care. 2. The Emergency Physicain has interpreted your x-rays. The X-Ray specialist will also review them. If there is a change in the findings, you will be notified in 48 hours when at all possible. 3. A lab test or culture has been done, your results will be reviewed and you will be notified if you need a change in treatment. ADDITIONAL INSTRUCTIONS AND INFORMATION: 1. Your care today has been supervised by a physician who is specially trained in emergency care. Many problems require more than one evaluation for a complete diagnosis and treatment. We recommend that you schedule your follow up appointment as recommended to ensure complete treatment of you illness or injury. If you are unable to obtain follow up care and continue to have a problem, or if your condition worsens, we recommend that you return to the ED. 2. We are not able to safely determine your condition over the phone nor are we able to give sound medical advice over the phone. For these safety reasons, if you call for medical advice we will ask you to come to the ED for further evaluation. 3. If you have any questions regarding these discharge instructions please call the ED at [phone]. SAFETY INFORMATION: In the interest of safety, wellness, and injury prevention; we encourage you to wear your sealbelt, if you smoke; quite smoking, and we encourage family to use a protective helmet for bicycling and other sporting events that present an increased risk for head injury. IF YOUR SYMPTOMS WORSEN OR NEW SYMPTOMS DEVELOP, OR YOU HAVE CONCERNS ABOUT YOUR CONDITION; OR IF YOUR CONDITION WORSENS WHILE YOU ARE WAITING FOR YOUR FOLLOW UP A PPOINTMENT; EITHER CONTACT YOUR PRIMARY CARE DOCTOR, THE PHYSICIAN WHOSE NAME AND NUMBER YOU WERE GIVEN, OR RETURN TO THE ED IMMEDIATELY. GUILLERMINA MCWILLIAMS APRN Dec 08, 2020 13:11
[2020-12-08 13:24] LABS: BILIRUBIN,URINE NEGATIVE (NEG); CLARITY,URINE CLEAR; COLOR,URINE YELLOW; NITRITE,URINE NEGATIVE (NEG); PROTEIN,URINE NEGATIVE (NEG-TRACE); UROBILINOGEN,URINE 0.2 mg/dL (0.2 mg/dL)
[2020-12-08 13:30] LABS: BACTERIA,URINE FEW /HPF (0-FEW)
[2020-12-08 13:57] VITALS: BP 170/75
[2020-12-08 14:38] LABS: BASO # 0.1 x10^3/uL (0.0-0.2); BASO % 1 % (0-3); EOS # 0.1 x10^3/uL (0.0-0.7); EOS % 1 % (0-3); HEMATOCRIT 38.7 % (36.0-47.0); HEMOGLOBIN 12.9 g/dL (12.0-15.5); LYMPH # 1.6 x10^3/uL (1.0-4.8); LYMPH % 15 % (24-48); MEAN CORPUSCULAR HEMOGLOBIN 28 pg (25-35); MEAN CORPUSCULAR HGB CONC 33 g/dL (31-37); MEAN CORPUSCULAR VOLUME 84 fL (79-100); MONO # 0.7 x10^3/uL (0.0-1.1); MONO % 7 % (0-9); NEUT # 8.3 x10^3/uL (1.8-7.7); NEUT % 77 % (31-73); PLATELET COUNT 251 x10^3/uL (140-400); RED BLOOD COUNT 4.62 x10^6/uL (3.50-5.40); RED CELL DISTRIBUTION WIDTH 17.1 % (11.5-14.5); WHITE BLOOD COUNT 10.8 x10^3/uL (4.0-11.0)
[2020-12-08 15:37] LABS: CALCIUM 9.6 mg/dL (8.5-10.1); CREATININE 0.8 mg/dL (0.6-1.0); GFR 69.9
[2020-12-08 15:42] LABS: ALBUMIN 3.7 g/dL (3.4-5.0); ALBUMIN/GLOBULIN RATIO 1.4 (1.0-1.7); TOTAL BILIRUBIN 0.5 mg/dL (0.2-1.0); TOTAL PROTEIN 6.4 g/dL (6.4-8.2)
--- NOTE | 2020-12-08 17:59 | EKG ---
[facility] [address] [place] [address] Test Date: 2020-12-08 Test Time: 11:45:36 Pat Name: SHYANNE RODARTE Department: Room: Gender: F Order Entry: : 1945 Requested By: GUILLERMINA MCWILLIAMS Order Number: [id number] Reading MD: Measurements Intervals [place] Rate: 63 P: -34 IA: 194 QRS: -36 QRSD: 92 T: -6 QT: 426 QTc: 439 Interpretive Statements SINUS RHYTHM ABNORMAL LEFT AXIS DEVIATION LEFT ANTERIOR FASCICULAR BLOCK QRS(T) CONTOUR ABNORMALITY CONSIDER ANTEROSEPTAL MYOCARDIAL DAMAGE T ABNORMALITY IN INFERIOR LEADS ABNORMAL ECG RI6.02 No previous ECG available for comparison
--- NOTE | 2020-12-09 09:31 | NUR ---
IP: Informed pt of negative covid test. Pt verbalized understanding.
== END 2020-12-08 16:35 | disposition home or self-care (01) ==
LOC: ER 11:28
DX: F41.9 Anxiety disorder, unspecified (principal); Z20.822 Contact with and (suspected) exposure to COVID-19; R42 Dizziness and giddiness; R53.1 Weakness; J44.9 Chronic obstructive pulmonary disease, unspecified; K21.9 Gastro-esophageal reflux disease without esophagitis; I10 Essential (primary) hypertension
CPT/HCPCS: 36415; 70450; 71045; 80053; 81001; 83880; 84484; 85025; 87086; 87426; 93005; 99285; U0003; U0005; 99283